=== PATIENT | male | born 1965 | race Two or more races ===

== ENCOUNTER 2020-06-20 10:49 | Outpatient (REF) | payer OTHER, SELFPAY | END 2020-06-20 10:50 | disposition home or self-care (01) | LOC: HO.LAB 10:49 | PROVIDERS: Visit Provider Internal Medicine | DX: Z20.828 Contact with and (suspected) exposure to other viral communicable diseases (principal) | CPT/HCPCS: C9803; U0003 ==

== ENCOUNTER → 2020-06-21 14:13 | Outpatient (BNVA) | payer OTHER, SELFPAY | PROVIDERS: PCP Internal Medicine Geriatric Medicine; Referring Provider Internal Medicine Geriatric Medicine; Visit Provider Nurse Practitioner | DX: K21.9 Gastro-esophageal reflux disease without esophagitis (principal); K59.04 Chronic idiopathic constipation; Z79.899 Other long term (current) drug therapy | CPT/HCPCS: Q3014 ==

== ENCOUNTER 2020-07-19 10:39 | Outpatient (REF) | payer OTHER, SELFPAY | END 2020-07-19 10:40 | disposition home or self-care (01) | LOC: HO.LAB 10:39 | PROVIDERS: Visit Provider Internal Medicine | DX: Z20.828 Contact with and (suspected) exposure to other viral communicable diseases (principal) | CPT/HCPCS: C9803; U0003 ==

== ENCOUNTER → 2020-12-22 10:15 | Outpatient (BNVA) | payer OTHER, SELFPAY | PROVIDERS: Visit Provider Nurse Practitioner | DX: K59.04 Chronic idiopathic constipation (principal); K21.9 Gastro-esophageal reflux disease without esophagitis | CPT/HCPCS: Q3014 ==

== ENCOUNTER 2021-05-14 17:15 | Emergency (ER) | payer OTHER, SELFPAY ==
[2021-05-14 18:23] VITALS: BP 136/102; PULSE 83; RESP 18; TEMP 36.6; O2SAT 97; BMI 26.9
--- NOTE | 2021-05-14 20:21 | ED.WOUNDLAC ---
HPI - Wound/Laceration General Chief Complaint: Wound/Laceration Stated Complaint: Finger lac 05/12 Time Seen by Provider: 05/14/21 19:50 Source: patient Mode of arrival: ambulatory Limitations: no limitations History of Present Illness HPI narrative: 55-year-old male who had a superficial cut on his volar wrist 2 days ago presents with redness around the cut. Patient has been applying Neosporin. Related Data Home Medications Medication Instructions Recorded Confirmed cephalexin 500 mg capsule 500 mg PO BID 12/22/20 clindamycin phosphate 1 % topical ml TOPICAL BID 12/22/20 solution diphenhydramine HCl 25 mg tablet 25 mg PO BEDTIME 12/22/20 fluoxetine 20 mg capsule 20 mg PO QAM 12/22/20 fluticasone propionate 50 0 mcg INTRANASAL 12/22/20 mcg/actuation nasal spray,suspension gabapentin 100 mg capsule 100 mg PO TID 12/22/20 guaifenesin 100 mg/5 mL oral liquid 200 mg PO Q4H PRN 12/22/20 loratadine 10 mg tablet 10 mg PO DAILY 12/22/20 lorazepam 0.5 mg tablet 0.5 mg PO DAILY 12/22/20 meclizine 25 mg tablet 25 mg PO TID PRN 12/22/20 naproxen 500 mg tablet 500 mg PO BID 12/22/20 triamcinolone acetonide 0.1 % 3 TOPICAL Q OTHER DAY PRN 12/22/20 topical ointment zolpidem 10 mg tablet 10 mg PO BEDTIME PRN 12/22/20 Previous Rx's Medication Instructions Recorded omeprazole 20 mg capsule,delayed 20 mg PO DAILY 30 Days #30 cap 12/22/20 release sennosides 8.6 mg capsule (senna) 17.2 mg PO BEDTIME 30 Days #60 cap 12/22/20 cephalexin 500 mg capsule 500 mg PO QID 5 Days #20 cap 05/14/21 Allergies Allergy/AdvReac Type Severity Reaction Status Date / Time No Known Allergies Allergy Verified 05/14/21 18:21 [No Known Allergies*] Review of Systems Review of Systems: Constitutional : No Weight loss, No Fever, No Chills, No Night Sweats,No Fatigue, No Malaise ENT/Mouth : No Hearing loss, No Ear Pain, No Nasal Congestion, NoSinus Pain, No Hoarseness, No sore throat, No Rhinorrhea, NoSwallowing Difficulty Eyes: No Eye Pain, No Swelling, No Redness, No Foreign Body, NoDischarge, No Vision Changes Cardiovascular : No Chest Pain, No SOB, No Dyspnea on Exertion, NoOrthopnea, No Edema, No Palpitations Respiratory : No Cough, No Sputum, No Wheezing, No Smoke Exposure, No Dyspnea Gastrointestinal : No Nausea, No Vomiting, No Diarrhea, NoConstipation, No abdominal Pain, No Hematochezia, No Melena Musculoskeletal : No joint pain, No Myalgias, No Joint Swelling Skin : cut with surrounding rash on right wrist Neuro : No Weakness, No Numbness, No Paresthesias, No Loss ofConsciousness, No Dizziness, No Headache PMFSH Past Medical History Surgical History History of esophagogastroduodenoscopy Hx of colonoscopy Family History Family History Father No problems noted. Mother No problems noted. Sister Liver cancer Brother Cancer Social History Social History Household Members: None Housing: Apartment Alcohol intake: current Alcohol intake frequency: a few times a month Alcohol type: beer Years Smoked: 5 Advance Directives: No Advance Directives Information Provided: No Physical Exam Vital Signs: Vital Signs: Last Vital Signs Temp 97.8 F 05/14/21 18:23 Pulse 83 05/14/21 18:23 Resp 18 05/14/21 18:23 BP 136/102 H 05/14/21 18:23 Pulse Ox 97 05/14/21 18:23 Body Mass Index 26.9 Const: General: healthy appearing, no acute distress, well developed, alert and awake Nutritional Appearance: average body habitus Orientation/consciousness: patient oriented x3 Limitations: no limitations Resp: Effort & Inspection: normal respiratory effort Auscultation: clear to auscultation bilaterally, no crackles, no rales, no rhonchi and no wheezes Cardio: Rate: regular rate Rhythm: regular rhythm Heart sounds: S1 normal heart sound present and S2 normal heart sound present Skin: Other: 1 cm superficial laceration to right volar wrist surrounded by erythema No warmth Neuro: General: patient oriented x3 Extrem: Right upper extremity: full ROM, normal capillary refill and wrist Details: laceration (1 cm, partial thickness), normal vascular exam and radial pulse present; Negative for no tenderness, no unusual warmth and no ecchymosis; No no cyanosis and no edema Course Course Course Narrative: 55-year-old male with superficial 1 cm laceration that he sustained while washing dishes to his right wrist 2 days ago. Patient has been washing the cut, and applying Neosporin. There is some redness and swelling surrounding the cut, there is no warmth. Possible Neosporin allergy versus developing cellulitis. Counseled patient to use bacitracin instead of Neosporin, prescribed Keflex. Gave return precautions of worsening redness, swelling, warmth, pain, fevers. Discharge Plan Discharge Clinical Impression: Cellulitis Patient Disposition: Home, Self-Care Instructions: Cellulitis (ED) Additional Instructions: Please stop using Neosporin. Please start using bacitracin. Wash with soap and water. Please take the antibiotic I prescribed for 5 days. It may take 3 days for the redness to go away. Please return to the emergency room for fevers, worsening pain. Prescriptions: New cephalexin 500 mg capsule 500 mg PO QID 5 Days Qty: 20 RF: 0 No Action loratadine 10 mg tablet 10 mg PO DAILY RF: 0 diphenhydramine HCl 25 mg tablet 25 mg PO BEDTIME RF: 0 fluoxetine 20 mg capsule 20 mg PO QAM RF: 0 zolpidem 10 mg tablet 10 mg PO BEDTIME PRNRF: 0 gabapentin 100 mg capsule 100 mg PO TID RF: 0 lorazepam 0.5 mg tablet 0.5 mg PO DAILY RF: 0 cephalexin 500 mg capsule 500 mg PO BID RF: 0 fluticasone propionate 50 mcg/actuation spray,suspension 0 mcg intranasal RF: 0 triamcinolone acetonide 0.1 % ointment 3 topical Q OTHER DAY PRNRF: 0 clindamycin phosphate 1 % solution topical BID RF: 0 meclizine 25 mg tablet 25 mg PO TID PRNRF: 0 guaifenesin 100 mg/5 mL liquid 200 mg PO Q4H PRNRF: 0 naproxen 500 mg tablet 500 mg PO BID RF: 0 omeprazole 20 mg capsule,delayed release(DR/EC) 20 mg PO DAILY 30 Days Qty: 30 RF: 6 senna 8.6 mg capsule 17.2 mg PO BEDTIME 30 Days Qty: 60 RF: 6 Interventions: ED Discharge Assessment Last Done: 05/14/21 20:40 Discharge Date/Time: 05/14/21 20:44
[2021-05-14] MEDS: cephALEXin 500 MG CAPSULE PO (20:39)
== END 2021-05-14 20:44 | disposition home or self-care (01) ==
PROVIDERS: Emergency Provider Internal Medicine; PCP Internal Medicine Geriatric Medicine
DX: L03.113 Cellulitis of right upper limb (principal)
CPT/HCPCS: 99283; 99284

== ENCOUNTER 2021-05-25 11:42 | Outpatient (REF) | payer OTHER, SELFPAY ==
--- NOTE | ~2021-05-25 | XR_ITS ---
EXAMINATION: XR WRIST, RIGHT CLINICAL INFORMATION: Injury. Laceration. Rash. COMPARISON: None TECHNIQUE: Right wrist is imaged in 4 views. FINDINGS: There is no acute or healing fracture, dislocation, destructive process. No periostitis. The ulnar variance is neutral. There is no carpal narrowing or erosive change or chondrocalcinosis. There is a short linear calcification or old foreign body adjacent to medial base proximal phalanx index finger measuring 4 mm in length by 1.4 mm thickness. Otherwise, there is no radiopaque soft tissue foreign body wrist. XR/XR wrist RT 2V IMPRESSION: 1. No fracture, dislocation, destructive process. 2. Short linear calcification lateral form body adjacent to medial base index finger proximal phalanx. No radiopaque soft tissue foreign body right wrist.
== END 2021-05-25 11:43 | disposition home or self-care (01) ==
LOC: HO.XRAY 11:42
PROVIDERS: Absent Provider Internal Medicine Geriatric Medicine; PCP Internal Medicine Geriatric Medicine; Visit Provider Emergency Medicine
DX: S69.91XA Unspecified injury of right wrist, hand and finger(s), initial encounter (principal); X58.XXXA Exposure to other specified factors, initial encounter; Y93.9 Activity, unspecified; Y92.9 Unspecified place or not applicable; Y99.9 Unspecified external cause status
CPT/HCPCS: 73100

== ENCOUNTER → 2021-06-26 16:06 | Outpatient (BNVA) | payer OTHER, SELFPAY | PROVIDERS: PCP Internal Medicine Geriatric Medicine; Visit Provider Nurse Practitioner | DX: K21.9 Gastro-esophageal reflux disease without esophagitis (principal); K59.04 Chronic idiopathic constipation | CPT/HCPCS: Q3014 ==

== ENCOUNTER 2021-09-06 10:44 | Outpatient (REF) | payer OTHER, SELFPAY ==
--- NOTE | ~2021-09-06 | XR_ITS ---
EXAMINATION: XR ELBOW, RIGHT CLINICAL INFORMATION: Right elbow pain COMPARISON: None TECHNIQUE: AP, lateral, and oblique views of the right elbow. FINDINGS: The bones and soft tissues are normal. No fracture or joint effusion. Alignment is anatomic. Joint spaces are maintained. XR/XR elbow RT min 3V IMPRESSION: Normal right elbow.
== END 2021-09-06 10:45 | disposition home or self-care (01) ==
LOC: HO.XRAY 10:44
PROVIDERS: PCP Internal Medicine Geriatric Medicine; Visit Provider Emergency Medicine
DX: M25.521 Pain in right elbow (principal)
CPT/HCPCS: 73080

== ENCOUNTER 2021-10-10 11:30 | Outpatient (RCR) | payer OTHER, SELFPAY | END 2021-10-10 15:00 | disposition home or self-care (01) | LOC: HO.OT 11:30 | PROVIDERS: PCP Internal Medicine Geriatric Medicine; Visit Provider Emergency Medicine | DX: M25.521 Pain in right elbow (principal) | CPT/HCPCS: 97110; 97165 ==

== ENCOUNTER → 2022-08-15 10:21 | Outpatient (BNVA) | payer OTHER, SELFPAY | PROVIDERS: PCP Internal Medicine Geriatric Medicine; Visit Provider Nurse Practitioner | DX: K21.9 Gastro-esophageal reflux disease without esophagitis (principal); K59.04 Chronic idiopathic constipation | CPT/HCPCS: 99212 ==

== ENCOUNTER 2023-02-13 10:15 | Outpatient (AMB) | payer OTHER, SELFPAY ==
--- NOTE | 2023-02-13 10:27 | MHC.OFFVIS ---
Intake Vital Signs 02/13/23 10:34 Height 5 ft 2 in Weight 148 lb 2.41 oz BMI 27.1 BP 129/83 Blood Pressure Location Lt brachial Position Sitting Pulse 77 Intake Visit Reasons: 6 month follow up Intake Note: Gary presents in office as a est.patient for a 6month f/u PT CC: pt reports having no concerns pt denies any other GI Issues Filing Clerk Required: No Accompanied by: Self / Same As Patient Allergies No Known Allergies [No Known Allergies*] Allergy (Verified 02/13/23 10:35) HPI 6 month follow up HPI Details Assessment & Plan (1) GERD (gastroesophageal reflux disease): ?Code(s): K21.9 - Gastro-esophageal reflux disease without esophagitis ?Plan: He continues to do well! The omeprazole at 20mg is controlling his GERD and the senna controls his CIC well. He just passed his driving test and has his drivers license!! He is proud of this as he never drove before. ROV 6 months. We were incorrectly sending his meds to [facility] and he uses [facility]. (2) Chronic idiopathic constipation: ?Code(s): K59.04 - Chronic idiopathic constipation ? ? ? Medications: Refilled omeprazole 20 mg? PO DAILY 30 days 30 caps 1RF F K21.9 - Gastro-eso phageal reflux dis ease without esoph agitis ? sennosides (senna) 17.2 mg (2 x 8.6 m g) PO BEDTIME PRN 60 tabs 6RF for co nstipation K59.04 - Chronic i diopathic constipa tion TODAY'S VISIT He says that his medicines are still working well for him. The omeprazole at 20mg is controlling his GERD and the senna, and colace control his CIC well. ROV 6 mos. PFSH Medical History Depression Surgical History History of esophagogastroduodenoscopy Hx of colonoscopy Family History Father No problems noted. Mother No problems noted. Sister Liver cancer Brother Cancer Social History Household Members: None Housing: Apartment Alcohol intake: current Alcohol intake frequency: a few times a month Alcohol type: beer Years Smoked: 5 Review of Systems Const Denies fatigue, Denies fever(s), Denies night sweats, Denies poor appetite and Denies weight loss ENT Reports Normal hearing present, Denies dental pain, Denies dysphagia, Denies hearing loss, Denies mouth pain, Denies odynophagia, Denies throat swelling, Denies tongue swelling and Reports other (Dentition adequate) Card Reports no additional complaints Resp Reports no additional complaints GI Denies abdominal pain, Denies melena, Denies bloating, Denies hematochezia, Reports constipation, Denies GI cramping, Denies dysphagia, Denies excessive flatus, Denies early satiety, Reports heartburn, Denies diarrhea, Denies nausea, Denies odynophagia, Denies vomiting and Denies hematemesis Skin/Breast Denies pruritus, Denies lesions, Denies rash and Denies jaundice Neuro Reports Normal hearing present and Denies Abnormal speech present Endo Denies fatigue Aller/Immun Denies throat swelling and Denies tongue swelling Physical Exam Vital Signs: Last Vital Signs Pulse 77 02/13/23 10:34 BP 129/83 02/13/23 10:34 BMI result Body Mass Index 27.1 Const General: cooperative, no acute distress, well developed and well groomed Nutritional Appearance: well nourished and overweight Orientation/consciousness: oriented to person, oriented to place and oriented to time Limitations: No language barrier HEENT Head: Yes normocephalic and Yes atraumatic Eyes General: appearance normal, both eyes and all related structures Pupils: Equal, round and reactive pupils present Neck Neck: Yes normal visual inspection and Yes no lymphadenopathy Thyroid: Thyroid normal Resp Effort & Inspection: normal respiratory effort and able to speak in complete sentences Auscultation: clear to auscultation bilaterally Cardio Rate: regular rate Rhythm: regular rhythm Heart sounds: Normal, physiologic split S2 sound present Peripheral pulses: radial pulses present and posterior tibial pulses present GI Inspection: No distended, No Abdominal panniculus present and Yes obesity Palpation (GI): Soft to palpation, nontender, no guarding, not rigid and No hepatosplenomegaly present Percussion: Yes normal to percussion Auscultation: normal bowel sounds Rectal Exam - Male: Yes deferred Skin General skin exam: no rashes or lesions noted, turgor normal, skin not dry, no jaundice, No spider nevi and no striae Rashes: no rashes Nails: normal Neuro General: oriented to person, oriented to place and oriented to time Cranial nerves: Yes Equal, round and reactive pupils present and Yes Normal hearing present Speech: No Abnormal speech present Extrem General: Yes normal to inspection, No clubbing, No cyanosis and No edema Psych Appearance: grossly normal and well kempt Mental Status: mental status grossly normal Speech and movement: Normal speech and movement present Affect: normal affect Attitude: cooperative Thought process: Normal thought process present and not confabulating Thought content: Normal thought content present Insight: Limited insight present (Psych) Judgement: Limited judgement present (Psych) Assessment & Plan Assessment & Plan (1) GERD (gastroesophageal reflux disease): Code(s): K21.9 - Gastro-esophageal reflux disease without esophagitis Plan: He says that his medicines are still working well for him. The omeprazole at 20mg is controlling his GERD and the senna, and colace control his CIC well. ROV 6 mos. (2) Chronic idiopathic constipation: Code(s): K59.04 - Chronic idiopathic constipation Medications: Changed From docusate sodium 100 mg PO To docusate sodium 100 mg PO DAILY 30 caps 6RF Refilled omeprazole 20 mg PO DAILY 30 caps 6RF K21.9 - Gastro-esophageal reflux disease without esophagitis sennosides (senna) 17.2 mg (2 x 8.6 mg) PO BEDTIME PRN 60 tabs 6RF for constipation K59.04 - Chronic idiopathic constipation Coding Level of Care Code Est Pt Level 3 (34005) Diagnoses GERD (gastroesophageal reflux disease) K21.9 Chronic idiopathic constipation K59.04
[2023-02-13 10:34] VITALS: BP 129/83; PULSE 77; BMI 27.1
== END 2023-02-13 10:56 | disposition home or self-care (01) ==
LOC: HO.HGI 10:16
PROVIDERS: Visit Provider Nurse Practitioner
DX: K21.9 Gastro-esophageal reflux disease without esophagitis (principal); K59.04 Chronic idiopathic constipation
CPT/HCPCS: 99213

== ENCOUNTER → 2023-02-13 10:15 | Outpatient (BNVA) | payer OTHER, SELFPAY | PROVIDERS: Visit Provider Nurse Practitioner | DX: K21.9 Gastro-esophageal reflux disease without esophagitis (principal); K59.04 Chronic idiopathic constipation | CPT/HCPCS: 99212 ==

== ENCOUNTER 2023-04-06 12:05 | Emergency (ER) | payer OTHER, SELFPAY ==
--- NOTE | ~2023-04-06 | XR_ITS ---
EXAMINATION: XR PORTABLE CHEST CLINICAL INFORMATION: Syncope COMPARISON: 04/16/2019 TECHNIQUE: AP portable upright view of the chest FINDINGS: Lungs are clear. Slight elevation of the right hemidiaphragm. EKG leads overlie the chest. No consolidation, pneumothorax, or pleural effusion. Cardiac and mediastinal contours are normal. Pulmonary vasculature is unremarkable. Degenerative spondylosis is present in the thoracic spine. No acute osseous findings. XR/XR chest 1V IMPRESSION: No acute cardiopulmonary findings
--- NOTE | ~2023-04-06 | CT_ITS ---
EXAMINATION: CT HEAD WITHOUT CONTRAST CLINICAL INFORMATION: Syncope. COMPARISON: 04/29/2016 TECHNIQUE: Multidetector volumetric imaging of the head was performed without intravenous contrast material. This CT examination was performed using dose optimization techniques as appropriate, variously including the following: *Automated exposure control *Adjustment of mA and/or kV according to patient size (this includes techniques or standardized protocols for targeted exams where dose is matched to indication/reason for exam; i.e. extremities or head) *Use of iterative reconstruction technique Dose: 590 mGy-cm FINDINGS: There is no evidence of acute intracranial hemorrhage or territorial infarction. No abnormal mass-effect or midline shift is seen. Lara to white matter differentiation is well preserved. No extra axial fluid collections. The ventricles are normal in size and configuration. There is no abnormal attenuation within the brain parenchyma. The soft tissues and osseous structures are normal. Atelectatic right maxillary sinus. Imaged paranasal sinuses otherwise unremarkable. [employer] cells are clear. CT/CT head/brain wo IV con IMPRESSION: No acute intracranial pathology.
[2023-04-06 12:14] VITALS: BP 114/62; BP 116/81; PULSE 72; PULSE 74; RESP 16; TEMP 36.5; O2SAT 94; BMI 27.4
--- NOTE | 2023-04-06 12:18 | ECG_ITS ---
Test Reason : SYNCOPY Blood Pressure : / mmHG Vent. Rate : 063 BPM Atrial Rate : 063 BPM P-R Int : 154 ms QRS Dur : 098 ms QT Int : 436 ms P-R-T Axes : 067 052 041 degrees QTc Int : 446 ms Normal sinus rhythm Normal ECG When compared with ECG of 02-MAY-2019 02:32, Vent. rate has decreased BY 46 BPM Referred By: Stephie Camacho Electronically Signed By:DONALD SIMMONS
[2023-04-06 12:21] VITALS: RESP 16; O2SAT 94
--- NOTE | 2023-04-06 12:21 | ED.SYNCOPE ---
HPI - Syncope General Chief Complaint: Syncope Stated Complaint: Syncope ? Time Seen by Provider: 04/06/23 12:17 Source: patient and EMS Mode of arrival: EMS Limitations: no limitations History of Present Illness HPI narrative: 57-year-old male came in by EMS for evaluation after syncopal episode. Patient was feeling fine working at home when he saw his friend passed out patient felt lightheadedness and he collapsed after seen this, patient had nausea but no vomiting, patient stated he has been eating and drinking okay no diarrhea no abdominal pain, no CP, no SOB. He thinks he got emotional after seeing his friend passing out. Patient is feeling slightly better now. Related Data Home Medications Medication Instructions Recorded Confirmed diphenhydramine HCl 25 mg tablet 25 mg PO BEDTIME 12/22/20 fluoxetine 20 mg capsule 20 mg PO QAM 12/22/20 gabapentin 100 mg capsule 100 mg PO TID 12/22/20 guaifenesin 100 mg/5 mL oral liquid 200 mg PO Q4H PRN 12/22/20 loratadine 10 mg tablet 10 mg PO DAILY 12/22/20 lorazepam 0.5 mg tablet 0.5 mg PO DAILY 12/22/20 meclizine 25 mg tablet 25 mg PO TID PRN 12/22/20 naproxen 500 mg tablet 500 mg PO BID 12/22/20 triamcinolone acetonide 0.1 % 3 topical Q OTHER DAY PRN 12/22/20 topical ointment zolpidem 10 mg tablet 10 mg PO BEDTIME PRN 12/22/20 atorvastatin 20 mg tablet 20 mg PO DAILY 08/15/22 emtricitabine 200 mg-tenofovir 1 tab PO DAILY 08/15/22 alafenamide fumarate 25 mg tablet (Descovy) allavxgz-lwz-lrdvr acid 0.4 0 tab PO 08/15/22 mg-lycopene 300 mcg-lutein 250 mcg tablet (Cerovite Senior) Previous Rx's Medication Instructions Recorded docusate sodium 100 mg capsule 100 mg PO DAILY #30 caps 02/13/23 omeprazole 20 mg capsule,delayed 20 mg PO DAILY #30 caps 02/13/23 release sennosides 8.6 mg tablet (senna) 17.2 mg PO BEDTIME PRN for 02/13/23 constipation #60 tabs Allergies Allergy/AdvReac Type Severity Reaction Status Date / Time No Known Allergies Allergy Verified 02/13/23 10:35 [No Known Allergies*] Review of Systems Review of Systems: All other systems are reviewed and are negative Constitutional: Reports as per HPI and Reports no additional constitutional complaints Eyes: Reports as per HPI and Reports no additional eye complaints Reports system reviewed and no additional complaints, except as documented Cardiovascular: Reports as per HPI and Reports no additional cardiovascular complaints Respiratory: Reports as per HPI and Reports no additional respiratory complaints Gastrointestinal: Reports as per HPI and Reports no additional gastrointestinal complaints Genitourinary: Reports no additional female genitourinary complaints Musculoskeletal: Reports no additional musculoskeletal complaints Skin/Breast: Reports system reviewed and no additional complaints, except as docu Psychiatric: Reports no additional psychiatric complaints Endocrine: Reports no additional endocrine complaints Hematologic/Lymphatic: Reports no additional hematologic/lymphatic complaints Allergic/Immunologic: Reports no additional allergic/immunologic complaints Reports system reviewed and no additional complaints, except as documented and Reports Abnormal speech present [facility] Past Medical History Medical History Depression Surgical History History of esophagogastroduodenoscopy Hx of colonoscopy Family History Family History Father No problems noted. Mother No problems noted. Sister Liver cancer Brother Cancer Social History Social History Household Members: None Housing: Apartment Alcohol intake: current Alcohol intake frequency: does not drink Alcohol type: beer Years Smoked: 5 Smoked in Last 30 Days: No Use of substances other than those prescribed or required for medical reasons: No Advance Directives: No Advance Directives Information Provided: No Physical Exam Vital Signs: Vital Signs: Last Vital Signs Temp 97.7 F 04/06/23 12:14 Pulse 72 04/06/23 12:14 Resp 16 04/06/23 12:21 BP 116/81 04/06/23 12:14 Pulse Ox 94 04/06/23 12:21 O2 Del Method Room Air 04/06/23 12:21 BMI result Body Mass Index 27.4 Vital signs have been reviewed as appeared to be correct. Blood pressure normal. Heart rate normal. Respiration rate normal. Temperature normal. Oxygen saturation normal. Appearance: Alert. Oriented X3. No acute distress. Head: Normal external exam. Normocephalic. Atraumatic. No [place] signs noted. No raccoon eyes noted Eyes: PERRLA. EOMI. Conjunctiva and sclera normal. Eyelids normal. ENT: TM's Normal. Pharynx normal. Uvula midline. Moist mucous membranes. No trismus noted. No drooling noted. No muffled voice noted. Neck: Normal inspection. Neck supple. FROM. No adenopathy. Thyroid Normal. No meningeal signs. No neck mass noted. CVS: Normal heart rate and rhythm. Heart sound normal. No murmurs noted. Pulses normal throughout. Respiratory: No respiratory distress. Painless inspiration. Breath sounds normal. No wheezes/rales/rhonchi noted. Chest nontender. No accessory muscle usage noted or decreased air movement noted. Abdomen: Soft and nontender. Bowel sounds normal in all 4 quadrants. No distention noted. No organomegaly noted. No visible injury noted. Back: No CVA tenderness. Full range of motion noted. Skin: Skin warm and dry. Normal skin color. Normal skin turgor. No rashes/lesions/lacerations noted. Extremities: No lower extremity edema. Extremities exhibit normal range of motion. Extremities nontender. Neuro: Oriented X 3. Cranial nerve exam: II-XII are grossly intact No motor deficit. No sensory deficit. Reflexes normal. Course Course Course Narrative: [age] year male had a syncopal episode, no CP, no SOB, patient feels better after IV fluid. Unremarkable labs. Medications Administered Discontinued Medications Generic Name Dose Route Start Last Admin Trade Name Freq PRN Reason Stop Dose Admin Sodium Chloride 1,000 mls @ 999 mls/hr 04/06/23 12:17 04/06/23 13:39 Ns IV 04/06/23 13:17 999 mls/hr .Q1H1M ONE Administration Medical Decision Making Differential Diagnosis Differential Diagnoses: The differential diagnosis associated with the presentation includes (Dehydration, abnormality, ACS, severe anemia.) Admission/Observation Consideration of admission/observation: Escalation of care including admission/observation considered Lab Data MDM Lab Attestation statement: I reviewed the patient's lab results. 04/06/23 14:07 04/06/23 14:07 Labs: Lab Results 04/06/23 04/06/2323 Range/Units 14:07 14:07 14:07 WBC 13.2 H (4.8-10.8) X10*3/uL RBC 4.36 L (4.60-5.80) X10*6/uL Hgb 12.5 L (14.0-18.0) g/dl Hct 37.3 L (42.0-52.0) % MCV 85.6 (80.0-98.0) fL MCH 28.7 (27.0-33.0) pg MCHC 33.5 (31.0-36.0) g/dl RDW 13.5 (11.0-16.0) % Plt Count 192 (160-400) X10*3/uL MPV 8.8 L (9.4-12.4) fL Immature Gran % (Auto) 0.6 H (0.0-0.4) % Neut % (Auto) 83.3 H (45-73) % Lymph % (Auto) 8.6 L (20-40) % Harlan % (Auto) 6.8 (2-11) % Eos % (Auto) 0.4 (0-4) % Baso % (Auto) 0.3 (0-2) % Lymph # (Auto) 1.1 L (1.2-4.9) X10*3/uL Harlan # (Auto) 0.9 (0.1-1.2) X10*3/uL Eos # (Auto) 0.1 (0.0-0.4) X10*3/uL Baso # (Auto) 0.0 (0.0-0.2) X10*3/uL Abs Immat Gran (auto) 0.08 H (0.00-0.03) X10*3/uL Absolute Neuts (auto) 11.0 H (2.0-8.3) x10*3/uL Absolute Nucleated RBC 0.000 (0.0-0.012) X10*3/uL Nucleated RBC % (auto) 0.0 (0.0-0.2) /100WBC Sodium 141 (135-145) mmol/L Potassium 4.4 (3.3-5.1) mmol/L Chloride 109 H (96-108) mmol/L Carbon Dioxide 26 (22-29) mmol/L Anion Gap 10 L (12-20) BUN 9 (9-16) mg/dL Creatinine 1.12 (0.5-1.4) mg/dL Estim Creat Clear Calc 62.4 Estimated GFR > 60 Random Glucose 119 H (60-115) mg/dL Calcium 8.8 (8.4-10.2) mg/dL Total Bilirubin 0.4 (0.0-1.0) mg/dL Direct Bilirubin 0.1 (0.0-0.5) mg/dL AST 19 (5-37) U/L ALT 14 (0-40) U/L Alkaline Phosphatase 65 (39-117) U/L Troponin I High Sens < 2.7 (<3.5-35.0) ng/L B-Natriuretic Peptide (<100) pg/mL Total Protein 6.9 (6.5-8.0) g/dL Albumin 4.1 (3.5-5.0) g/dL Lipase 14 (8-78) U/L 04/06/23 Range/Units 14:07 WBC (4.8-10.8) X10*3/uL RBC (4.60-5.80) X10*6/uL Hgb (14.0-18.0) g/dl Hct (42.0-52.0) % MCV (80.0-98.0) fL MCH (27.0-33.0) pg MCHC (31.0-36.0) g/dl RDW (11.0-16.0) % Plt Count (160-400) X10*3/uL MPV (9.4-12.4) fL Immature Gran % (Auto) (0.0-0.4) % Neut % (Auto) (45-73) % Lymph % (Auto) (20-40) % Harlan % (Auto) (2-11) % Eos % (Auto) (0-4) % Baso % (Auto) (0-2) % Lymph # (Auto) (1.2-4.9) X10*3/uL Harlan # (Auto) (0.1-1.2) X10*3/uL Eos # (Auto) (0.0-0.4) X10*3/uL Baso # (Auto) (0.0-0.2) X10*3/uL Abs Immat Gran (auto) (0.00-0.03) X10*3/uL Absolute Neuts (auto) (2.0-8.3) x10*3/uL Absolute Nucleated RBC (0.0-0.012) X10*3/uL Nucleated RBC % (auto) (0.0-0.2) /100WBC Sodium (135-145) mmol/L Potassium (3.3-5.1) mmol/L Chloride (96-108) mmol/L Carbon Dioxide (22-29) mmol/L Anion Gap (12-20) BUN (9-16) mg/dL Creatinine (0.5-1.4) mg/dL Estim Creat Clear Calc Estimated GFR Random Glucose (60-115) mg/dL Calcium (8.4-10.2) mg/dL Total Bilirubin (0.0-1.0) mg/dL Direct Bilirubin (0.0-0.5) mg/dL AST (5-37) U/L ALT (0-40) U/L Alkaline Phosphatase (39-117) U/L Troponin I High Sens (<3.5-35.0) ng/L B-Natriuretic Peptide < 10 (<100) pg/mL Total Protein (6.5-8.0) g/dL Albumin (3.5-5.0) g/dL Lipase (8-78) U/L Independent Interpretation I performed an independent interpretation of an: Plain X-Ray (Chest: No acute cardiopulmonary finding) and CT Scan (Head: No acute pathology.) Radiology Impression Discussion of test interpretation with radiology: I have reviewed the radiologist's reading. Discharge Plan Discharge Clinical Impression: Vasovagal syncope Instructions: Syncope in Children (ED) Prescriptions: No Action loratadine 10 mg tablet 10 mg PO DAILY diphenhydramine HCl 25 mg tablet 25 mg PO BEDTIME fluoxetine 20 mg capsule 20 mg PO QAM zolpidem 10 mg tablet 10 mg PO BEDTIME PRN gabapentin 100 mg capsule 100 mg PO TID lorazepam 0.5 mg tablet 0.5 mg PO DAILY triamcinolone acetonide 0.1 % ointment 3 topical Q OTHER DAY PRN meclizine 25 mg tablet 25 mg PO TID PRN guaifenesin 100 mg/5 mL liquid 200 mg PO Q4H PRN naproxen 500 mg tablet 500 mg PO BID atorvastatin 20 mg tablet 20 mg PO DAILY Cerovite Senior 0.4 mg-300 mcg- 250 mcg tablet 0 tab PO Descovy 200-25 mg tablet 1 tab PO DAILY omeprazole 20 mg capsule,delayed release(DR/EC) 20 mg PO DAILY Qty: 30 6RF sennosides [senna] 8.6 mg tablet 17.2 mg PO BEDTIME PRN (Reason: for constipation) Qty: 60 6RF docusate sodium 100 mg capsule 100 mg PO DAILY Qty: 30 6RF
--- NOTE | 2023-04-06 12:51 | MHC.EDTECH ---
PATIENT REFUSE ORTHOSTATIC VITALS AT THE MOMENT PT STATES FEEL DIZZY
[2023-04-06] MEDS: 0.9 % Sodium Chloride 1,000 ML 999 ML IV ×2 (13:39→14:55)
[2023-04-06 14:00] VITALS: RESP 16
[2023-04-06 14:12] LABS: Basophils Percent Auto 0.3 % (0-2); Eosinophils Absolute Auto 0.1 X10*3/uL (0.0-0.4); Eosinophils Percent Auto 0.4 % (0-4); Hematocrit 37.3 % (42.0-52.0); Hemoglobin 12.5 g/dl (14.0-18.0); Imm Gran Abs Auto 0.08 X10*3/uL (0.00-0.03); Imm Gran Pct Auto 0.6 % (0.0-0.4); Lymphocytes Absolute Auto 1.1 X10*3/uL (1.2-4.9); Lymphocytes Percent Auto 8.6 % (20-40); MANUAL DIFF FLAG NO; Mean Corpuscular HGB Conc 33.5 g/dl (31.0-36.0); Mean Corpuscular Hemoglobin 28.7 pg (27.0-33.0); Mean Corpuscular Volume 85.6 fL (80.0-98.0); Mean Platelet Volume 8.8 fL (9.4-12.4); Monocytes Absolute Auto 0.9 X10*3/uL (0.1-1.2); Monocytes Percent Auto 6.8 % (2-11); Neutrophils Percent Auto 83.3 % (45-73); Platelet Count 192 X10*3/uL (160-400); Red Blood Count 4.36 X10*6/uL (4.60-5.80); Red Cell Distribution Width 13.5 % (11.0-16.0); White Blood Count 13.2 X10*3/uL (4.8-10.8)
[2023-04-06 14:29] LABS: Alanine Aminotransferase 14 U/L (0-40); Albumin Level 4.1 g/dL (3.5-5.0); Alkaline Phosphatase 65 U/L (39-117); Anion Gap 10 (12-20); Aspartate Amino Transferase 19 U/L (5-37); Bilirubin Direct 0.1 mg/dL (0.0-0.5); Bilirubin Total 0.4 mg/dL (0.0-1.0); Blood Urea Nitrogen 9 mg/dL (9-16); Calcium 8.8 mg/dL (8.4-10.2); Carbon Dioxide 26 mmol/L (22-29); Chloride 109 mmol/L (96-108); Creatinine Clr Calc Pharmacy 62.4; Estimated Glomerular Filt Rate > 60; Glucose Random 119 mg/dL (60-115); Lipase 14 U/L (8-78); Potassium 4.4 mmol/L (3.3-5.1); Sodium 141 mmol/L (135-145); Total Protein 6.9 g/dL (6.5-8.0)
[2023-04-06 14:34] LABS: B Type Natriuretic Peptide < 10 pg/mL (<100)
[2023-04-06 14:39] LABS: Troponin-I High Sensitivity < 2.7 ng/L (<3.5-35.0)
[2023-04-06 15:24] LABS: Troponin-I High Sensitivity < 2.7 ng/L (<3.5-35.0)
[2023-04-06 16:00] VITALS: RESP 16
[2023-04-06 16:23] VITALS: BP 106/64; PULSE 74; RESP 13; O2SAT 96
== END 2023-04-06 16:27 | disposition home or self-care (01) ==
PROVIDERS: Emergency Provider Emergency Medicine
DX: R55 Syncope and collapse (principal); Z79.899 Other long term (current) drug therapy; Z87.891 Personal history of nicotine dependence
CPT/HCPCS: 36415; 70450; 71045; 80048; 80076; 83690; 83880; 84484; 85025; 93005; 96360; 96361; 99284; 99285

== ENCOUNTER 2023-04-29 12:54 | Outpatient (REF) | payer OTHER, SELFPAY ==
--- NOTE | ~2023-04-29 | US_ITS ---
EXAMINATION: US SCROTUM CLINICAL INFORMATION: Right testicular pain, left testicular pain. COMPARISON: None available. TECHNIQUE: A sonogram of the scrotum was performed assessing pelletier-scale appearance and color Doppler flow. Spectral Doppler analysis of the arterial and venous flow were performed in the testes bilaterally. FINDINGS: RIGHT: Right testicle measures 4.3 x 1.8 x 3.2 cm, volume 12.8 mL. No focal testicular parenchymal lesions are visualized. Spectral Doppler analysis of the arterial and venous flow is normal in the right testis. Right epididymal head is normal in size. No right hydrocele or varicocele is seen. Right epididymal Doppler flow is normal. LEFT: Left testicle measures 4.3 x 1.9 x 3.1 cm, volume 13.3 mL. No focal testicular parenchymal lesions are visualized. Spectral Doppler analysis of the arterial and venous flow is normal in the left testis. Left epididymal head is normal in size. Left epididymal head cyst measuring 2 mm. No left hydrocele or varicocele is seen. Left epididymal Doppler flow is normal. US/US scrotum IMPRESSION: 1. Bilateral testicular vascular flow identified. 2. Left epididymal head cyst measuring 2 mm.
== END 2023-04-29 12:55 | disposition home or self-care (01) ==
LOC: HO.US 12:54
PROVIDERS: Visit Provider Nurse Practitioner Family
DX: N50.811 Right testicular pain (principal); N50.812 Left testicular pain
CPT/HCPCS: 76870

== ENCOUNTER 2023-05-26 22:21 | Emergency (ER) | payer OTHER, SELFPAY ==
--- NOTE | ~2023-05-26 | XR_ITS ---
EXAMINATION: XR CHEST CLINICAL INFORMATION: Shortness of breath COMPARISON: 04/06/2023 TECHNIQUE: Frontal view of the chest was obtained. FINDINGS: The lungs are clear with no focal consolidation. No evidence of pneumothorax, pulmonary edema, or pleural effusions. The cardiomediastinal silhouette is unremarkable. No acute osseous findings. XR/XR chest 1V IMPRESSION: No acute cardiopulmonary findings.
[2023-05-26 22:38] VITALS: BP 138/98; PULSE 98; RESP 16; TEMP 36.8; O2SAT 93; BMI 26.9
--- NOTE | 2023-05-27 00:43 | ECG_ITS ---
Test Reason : DYSPNEA Blood Pressure : / mmHG Vent. Rate : 082 BPM Atrial Rate : 082 BPM P-R Int : 150 ms QRS Dur : 088 ms QT Int : 366 ms P-R-T Axes : 062 060 041 degrees QTc Int : 427 ms Normal sinus rhythm Normal ECG When compared with ECG of 06-APR-2023 12:47, No significant change was found Referred By: Mireya Donohue Electronically Signed By:GEO MARTINEZ MD
[2023-05-27 01:26] LABS: Basophils Absolute Auto 0.1 X10*3/uL (0.0-0.2); Basophils Percent Auto 0.8 % (0-2); Eosinophils Absolute Auto 0.2 X10*3/uL (0.0-0.4); Eosinophils Percent Auto 1.6 % (0-4); Hematocrit 38.7 % (42.0-52.0); Hemoglobin 12.7 g/dl (14.0-18.0); Imm Gran Abs Auto 0.02 X10*3/uL (0.00-0.03); Imm Gran Pct Auto 0.2 % (0.0-0.4); Lymphocytes Absolute Auto 3.7 X10*3/uL (1.2-4.9); Lymphocytes Percent Auto 38.8 % (20-40); MANUAL DIFF FLAG NO; Mean Corpuscular HGB Conc 32.8 g/dl (31.0-36.0); Mean Corpuscular Hemoglobin 27.9 pg (27.0-33.0); Mean Corpuscular Volume 84.9 fL (80.0-98.0); Mean Platelet Volume 8.8 fL (9.4-12.4); Monocytes Absolute Auto 0.8 X10*3/uL (0.1-1.2); Monocytes Percent Auto 8.8 % (2-11); Neutrophils Absolute Auto 4.7 x10*3/uL (2.0-8.3); Neutrophils Percent Auto 49.8 % (45-73); Platelet Count 236 X10*3/uL (160-400); Red Blood Count 4.56 X10*6/uL (4.60-5.80); Red Cell Distribution Width 13.2 % (11.0-16.0); White Blood Count 9.5 X10*3/uL (4.8-10.8)
[2023-05-27 01:32] LABS: INTERNATIONAL NORM RATIO 0.9 (0.9-1.1); Prothrombin Time 10.7 SEC (11.1-13.3)
[2023-05-27 01:41] LABS: COVID-19 Test Negative (Negative); IDNOW Serial# 6674DD1D
[2023-05-27 01:42] LABS: Alanine Aminotransferase 26 U/L (0-40); Albumin Level 4.4 g/dL (3.5-5.0); Alkaline Phosphatase 100 U/L (39-117); Anion Gap 15 (12-20); Aspartate Amino Transferase 27 U/L (5-37); Bilirubin Direct 0.1 mg/dL (0.0-0.5); Bilirubin Total 0.3 mg/dL (0.0-1.0); Blood Urea Nitrogen 15 mg/dL (9-16); Calcium 9.7 mg/dL (8.4-10.2); Carbon Dioxide 23 mmol/L (22-29); Chloride 107 mmol/L (96-108); Creatinine Clr Calc Pharmacy 63.6; Estimated Glomerular Filt Rate > 60; Glucose Random 100 mg/dL (60-115); Potassium 3.7 mmol/L (3.3-5.1); Sodium 141 mmol/L (135-145); Total Protein 7.6 g/dL (6.5-8.0)
[2023-05-27 01:47] LABS: Troponin-I High Sensitivity < 2.7 ng/L (<3.5-35.0)
[2023-05-27 01:48] LABS: B Type Natriuretic Peptide < 10 pg/mL (<100)
--- NOTE | 2023-05-27 02:01 | ED.GENADULT ---
HPI - General Adult General Chief complaint: Dyspnea Stated complaint: Shortness of breath, no appetite Time Seen by Provider: 05/27/23 01:54 Source: patient Mode of arrival: ambulatory Limitations: no limitations History of Present Illness HPI narrative: Patient comes in the emergency room complaining of anxiety. Patient states that yesterday he had an argument with his partner. It seems that the patient's partner left yesterday against medical advice from the hospital, and patient will not let his partner inside of the house. Patient complaining of anxiety, chest pressure. At this time, no chest pain or pressure. Patient denies suicidal homicidal ideation. Related Data Home Medications Medication Instructions Recorded Confirmed diphenhydramine HCl 25 mg tablet 25 mg PO BEDTIME 12/22/20 fluoxetine 20 mg capsule 20 mg PO QAM 12/22/20 gabapentin 100 mg capsule 100 mg PO TID 12/22/20 guaifenesin 100 mg/5 mL oral liquid 200 mg PO Q4H PRN 12/22/20 loratadine 10 mg tablet 10 mg PO DAILY 12/22/20 lorazepam 0.5 mg tablet 0.5 mg PO DAILY 12/22/20 meclizine 25 mg tablet 25 mg PO TID PRN 12/22/20 naproxen 500 mg tablet 500 mg PO BID 12/22/20 triamcinolone acetonide 0.1 % 3 topical Q OTHER DAY PRN 12/22/20 topical ointment zolpidem 10 mg tablet 10 mg PO BEDTIME PRN 12/22/20 atorvastatin 20 mg tablet 20 mg PO DAILY 08/15/22 emtricitabine 200 mg-tenofovir 1 tab PO DAILY 08/15/22 alafenamide fumarate 25 mg tablet (Descovy) [id number]-qsw-[id number] acid 0.4 0 tab PO 08/15/22 mg-lycopene 300 mcg-lutein 250 mcg tablet (Cerovite Senior) Previous Rx's Medication Instructions Recorded docusate sodium 100 mg capsule 100 mg PO DAILY #30 caps 02/13/23 omeprazole 20 mg capsule,delayed 20 mg PO DAILY #30 caps 02/13/23 release sennosides 8.6 mg tablet (senna) 17.2 mg (2 x 8.6 mg) PO BEDTIME 02/13/23 PRN for constipation #60 tabs Allergies Allergy/AdvReac Type Severity Reaction Status Date / Time No Known Allergies Allergy Verified 02/13/23 10:35 [No Known Allergies*] Review of Systems Review of Systems: Constitutional : No Weight loss, No Fever, No Chills, No Night Sweats, No Fatigue, No Malaise ENT/Mouth : No Hearing loss, No Ear Pain, No Nasal Congestion, No Sinus Pain, No Hoarseness, No sore throat, No Rhinorrhea, No Swallowing Difficulty Eyes: No Eye Pain, No Swelling, No Redness, No Foreign Body, No Discharge, No Vision Changes Cardiovascular : No Chest Pain, complaining of chest pressure due to anxiety, No SOB, No Dyspnea on Exertion, No Orthopnea, No Edema, No Palpitations Respiratory : No Cough, No Sputum, No Wheezing, No Smoke Exposure, No Dyspnea Gastrointestinal : No Nausea, No Vomiting, No Diarrhea, No Constipation, No abdominal Pain, No Hematochezia, No Melena Genitourinary : no irregular bleeding, No Dysuria, No Urinary Frequency, No Hematuria, No Urinary Incontinence, No Urgency, No Flank Pain, No Urinary Flow Changes, No Hesitancy Musculoskeletal : No joint pain, No Myalgias, No Joint Swelling Skin : No Skin Lesions, No rash Neuro : No Weakness, No Numbness, No Paresthesias, No Loss of Consciousness, No Dizziness, No Headache Psych : Complaining of anxiety, feeling depressed, No SI/HI/AH/VH, No Social Issues, Heme/Lymph: No Bruising, No Bleeding,No Lymphadenopathy Endocrine : No Polyuria, No Polydipsia, No Temperature Intolerance PMFSH Past Medical History Medical History Depression Surgical History History of esophagogastroduodenoscopy Hx of colonoscopy Family History Family History Father No problems noted. Mother No problems noted. Sister Liver cancer Brother Cancer Social History Social History Household Members: None Housing: Apartment Alcohol intake: current Alcohol intake frequency: does not drink Alcohol type: beer Years Smoked: 5 Advance Directives: No Advance Directives Information Provided: No Physical Exam ED Vital Signs: Vital Signs - 24 hr 05/26/23 22:38 10/23/23 02:02 Temperature 98.2 F Pulse Rate 98 85 Respiratory Rate 16 15 Blood Pressure 138/98 H 138/98 H Pulse Oximetry 93 Oxygen Delivery Method Room Air BMI result Body Mass Index 26.9 Const Other: Appearance: Alert. Oriented X3. No acute distress. Eyes: Pupils equal, round and reactive to light. ENT: Pharynx normal. Neck: Normal inspection. Neck supple. No lymph nodes noted. No crepitus CVS: Normal heart rate and rhythm. Pulses normal. Normal S1 and S2 Respiratory: No respiratory distress. Breath sounds normal. No Wheezing. No rales Abdomen: Soft and nontender. No rigidity. No distention. Skin: Skin warm and dry. Normal skin color. Normal skin turgor. Extremities: No lower extremity edema. No Lacerations. No Rash Neuro: Oriented X 3. No motor deficit. No sensory deficit. Moving all extremities. No slurred speech. CN 2 through 12 grossly intact Psych: calm, cooperative, normal affect Medical Decision Making Medical Decision Making [facility] Narrative: -my interpretation of labs, normal hematology, chemistry, negative troponin -patient is not suicidal or homicidal -my interpretation of labs: Normal sinus rhythm, heart rate 82, no ST segment depression elevation, no T-wave inversion, QTC 427 -patient was given a dose of Ativan to help with anxiety. Differential Diagnosis Differential Diagnoses: The differential diagnosis associated with the presentation includes (Anxiety, depression, ACS) Admission/Observation Consideration of admission/observation: Escalation of care including admission/observation considered (Patient came in complaining of chest pain, patient was concerned on arrival.) Lab Data [facility] Lab Attestation statement: I reviewed the patient's lab results. 05/27/23 01:20 05/27/23 01:20 Labs: Lab Results 05/27/23 Range/Units 01:20 WBC 9.5 (4.8-10.8) X10*3/uL RBC 4.56 L (4.60-5.80) X10*6/uL Hgb 12.7 L (14.0-18.0) g/dl Hct 38.7 L (42.0-52.0) % MCV 84.9 (80.0-98.0) fL MCH 27.9 (27.0-33.0) pg MCHC 32.8 (31.0-36.0) g/dl RDW 13.2 (11.0-16.0) % Plt Count 236 (160-400) X10*3/uL MPV 8.8 L (9.4-12.4) fL Immature Gran % (Auto) 0.2 (0.0-0.4) % Neut % (Auto) 49.8 (45-73) % Lymph % (Auto) 38.8 (20-40) % [place] % (Auto) 8.8 (2-11) % Eos % (Auto) 1.6 (0-4) % Baso % (Auto) 0.8 (0-2) % Lymph # (Auto) 3.7 (1.2-4.9) X10*3/uL [place] # (Auto) 0.8 (0.1-1.2) X10*3/uL Eos # (Auto) 0.2 (0.0-0.4) X10*3/uL Baso # (Auto) 0.1 (0.0-0.2) X10*3/uL Abs Immat Gran (auto) 0.02 (0.00-0.03) X10*3/uL Absolute Neuts (auto) 4.7 (2.0-8.3) x10*3/uL Absolute Nucleated RBC 0.000 (0.0-0.012) X10*3/uL Nucleated RBC % (auto) 0.0 (0.0-0.2) /100WBC PT 10.7 L (11.1-13.3) SEC INR 0.9 (0.9-1.1) Sodium 141 (135-145) mmol/L Potassium 3.7 (3.3-5.1) mmol/L Chloride 107 (96-108) mmol/L Carbon Dioxide 23 (22-29) mmol/L Anion Gap 15 (12-20) BUN 15 (9-16) mg/dL Creatinine 1.09 (0.5-1.4) mg/dL Estim Creat Clear Calc 63.6 Estimated GFR > 60 Random Glucose 100 (60-115) mg/dL Calcium 9.7 D (8.4-10.2) mg/dL Total Bilirubin 0.3 (0.0-1.0) mg/dL Direct Bilirubin 0.1 (0.0-0.5) mg/dL AST 27 (5-37) U/L ALT 26 (0-40) U/L Alkaline Phosphatase 100 (39-117) U/L Troponin I High Sens < 2.7 (<3.5-35.0) ng/L B-Natriuretic Peptide < 10 (<100) pg/mL Total Protein 7.6 (6.5-8.0) g/dL Albumin 4.4 (3.5-5.0) g/dL COVID-19 (RICKIE) Negative (Negative) COVID-19 Clin Com See Note Radiology Impression Discussion of test interpretation with radiology: I have reviewed the radiologist's reading. Radiologist Impression: The lungs are clear with no focal consolidation. No evidence of pneumothorax, pulmonary edema, or pleural effusions. The cardiomediastinal silhouette is unremarkable. No acute osseous findings. XR/XR chest 1V IMPRESSION: No acute cardiopulmonary findings. Critical Care Time Critical Care Time Critical Care Time: Yes Total Critical Care Time: 30 Attestation: I have personally provided critical care time. Time includes review of lab data, radiology results, discussion with consultants, and monitoring for potential decompensation. Intervention performed as documented. Discharge Plan Discharge Clinical Impression: Anxiety, Atypical chest pain Patient Disposition: Home, Self-Care Instructions: Anxiety (ED) Additional Instructions: Please follow-up with your primary care physician tomorrow. If you have any worsening or new symptoms, please return to the emergency room or call 911 Prescriptions: No Action loratadine 10 mg tablet 10 mg PO DAILY diphenhydramine HCl 25 mg tablet 25 mg PO BEDTIME fluoxetine 20 mg capsule 20 mg PO QAM zolpidem 10 mg tablet 10 mg PO BEDTIME PRN gabapentin 100 mg capsule 100 mg PO TID lorazepam 0.5 mg tablet 0.5 mg PO DAILY triamcinolone acetonide 0.1 % ointment 3 topical Q OTHER DAY PRN meclizine 25 mg tablet 25 mg PO TID PRN guaifenesin 100 mg/5 mL liquid 200 mg PO Q4H PRN naproxen 500 mg tablet 500 mg PO BID atorvastatin 20 mg tablet 20 mg PO DAILY Cerovite Senior 0.4 mg-300 mcg- 250 mcg tablet 0 tab PO Descovy 200-25 mg tablet 1 tab PO DAILY omeprazole 20 mg capsule,delayed release(DR/EC) 20 mg PO DAILY Qty: 30 6RF sennosides [senna] 8.6 mg tablet 17.2 mg PO BEDTIME PRN (Reason: for constipation) Qty: 60 6RF docusate sodium 100 mg capsule 100 mg PO DAILY Qty: 30 6RF
[2023-05-27 02:02] VITALS: BP 138/98; PULSE 85; RESP 15
--- NOTE | 2023-05-27 02:07 | PC.NURSE ---
Pt ca&ox4, no signs of distress. Pt EKG completed. Provider with pt. Plan of care ongoing.
[2023-05-27] MEDS: LORazepam 0.5 MG TABLET PO (02:40)
--- NOTE | 2023-05-27 02:45 | PC.NURSE ---
Pt ca&ox4, no sign of acute distress. Pt medicated per mar. Plan of care ongoing.
== END 2023-05-27 02:51 | disposition home or self-care (01) ==
PROVIDERS: Emergency Provider Emergency Medicine; PCP Internal Medicine Geriatric Medicine
DX: R07.89 Other chest pain (principal); R06.02 Shortness of breath; F41.1 Generalized anxiety disorder; F43.0 Acute stress reaction; Z11.52 Encounter for screening for COVID-19; Z20.822 Contact with and (suspected) exposure to COVID-19
CPT/HCPCS: 71045; 80048; 80076; 83880; 84484; 85025; 85610; 87635; 93005; 99283; 99284

== ENCOUNTER 2023-06-01 17:48 | Emergency (ER) | payer OTHER, SELFPAY ==
--- NOTE | ~2023-06-01 | XR_ITS ---
EXAMINATION: XR CHEST CLINICAL INFORMATION: Shortness of breath COMPARISON: Chest radiograph from 05/27/2023 TECHNIQUE: 2 views of the chest were obtained. FINDINGS: No focal consolidation. No pneumothorax. Trachea is midline. Cardiac mediastinal silhouette is not enlarged. No large pleural effusion. Degenerative changes of the thoracolumbar spine. Soft tissues are unremarkable. XR/XR chest 2V IMPRESSION: No acute cardiopulmonary process.
[2023-06-01 18:04] VITALS: BP 104/76; PULSE 81; RESP 18; TEMP 36.7; O2SAT 97; BMI 26.4
--- NOTE | 2023-06-01 18:08 | ED.SOB ---
HPI - SOB/Dyspnea General Chief Complaint: Back Pain/Injury Stated Complaint: upper back pain,sob Time Seen by Provider: 06/01/23 18:49 Source: patient Mode of arrival: ambulatory Limitations: no limitations History of Present Illness HPI Narrative: Patient is a 57-year-old male presents to the emergency department for evaluation of right mid lateral back pain, atraumatic in nature with accompanying shortness of breath. Pain is made worse with deep inspiration and movement. Denies fevers, chills, URI symptoms, chest pain, abdominal pain, nausea, vomiting. Related Data Home Medications Medication Instructions Recorded Confirmed diphenhydramine HCl 25 mg tablet 25 mg PO BEDTIME 12/22/20 fluoxetine 20 mg capsule 20 mg PO QAM 12/22/20 gabapentin 100 mg capsule 100 mg PO TID 12/22/20 guaifenesin 100 mg/5 mL oral liquid 200 mg PO Q4H PRN 12/22/20 loratadine 10 mg tablet 10 mg PO DAILY 12/22/20 lorazepam 0.5 mg tablet 0.5 mg PO DAILY 12/22/20 meclizine 25 mg tablet 25 mg PO TID PRN 12/22/20 naproxen 500 mg tablet 500 mg PO BID 12/22/20 triamcinolone acetonide 0.1 % 3 topical Q OTHER DAY PRN 12/22/20 topical ointment zolpidem 10 mg tablet 10 mg PO BEDTIME PRN 12/22/20 atorvastatin 20 mg tablet 20 mg PO DAILY 08/15/22 emtricitabine 200 mg-tenofovir 1 tab PO DAILY 08/15/22 alafenamide fumarate 25 mg tablet (Descovy) pevlmsqf-fau-mmhsd acid 0.4 0 tab PO 08/15/22 mg-lycopene 300 mcg-lutein 250 mcg tablet (Cerovite Senior) Previous Rx's Medication Instructions Recorded docusate sodium 100 mg capsule 100 mg PO DAILY #30 caps 02/13/23 omeprazole 20 mg capsule,delayed 20 mg PO DAILY #30 caps 02/13/23 release sennosides 8.6 mg tablet (senna) 17.2 mg (2 x 8.6 mg) PO BEDTIME 02/13/23 PRN for constipation #60 tabs Allergies Allergy/AdvReac Type Severity Reaction Status Date / Time No Known Allergies Allergy Verified 02/13/23 10:35 [No Known Allergies*] Review of Systems Review of Systems: Yes all other systems are reviewed and are negative [facility] Past Medical History Attestation statement: The following information was validated with the patient. Source: old records reviewed Medical History Depression Surgical History History of esophagogastroduodenoscopy Hx of colonoscopy Family History Family History Father No problems noted. Mother No problems noted. Sister Liver cancer Brother Cancer Social History Social History Household Members: None Housing: Apartment Alcohol intake: current Alcohol intake frequency: does not drink Alcohol type: beer Years Smoked: 5 Advance Directives: No Advance Directives Information Provided: Yes Physical Exam Vital Signs: Vital Signs: Last Vital Signs Temp 98.1 F 06/01/23 18:04 Pulse 81 06/01/23 18:04 Resp 18 06/01/23 18:04 BP 104/76 06/01/23 18:04 Pulse Ox 97 06/01/23 18:04 O2 Del Method Room Air 06/01/23 18:04 BMI result Body Mass Index 26.4 Appearance: Alert.?Oriented to person, place and time. No acute distress.?Normal affect. Eyes: Pupils equal, round and reactive to light.? ENT: Pharynx normal.?? Neck: Normal inspection.? Neck supple.?? CVS: Heart sounds normal. Normal heart rate and rhythm.? Pulses normal.?? Respiratory: No respiratory distress.? Lung sounds clear to auscultation bilaterally. TTP right posterior lower chest wall Abdomen: Soft and non-tender. Normoactive bowel sounds. No pulsatile mass.??No CVA tenderness Skin: Skin warm and dry.? Normal skin color.? ? Extremities: No lower extremity edema.? No calf ttp? Neuro: Moves all extremities spontaneously. Sensation intact bilaterally. No focal neuro deficits. Ambulates with normal steady gait. Course Reevaluation(s) Reevaluation #1: CMP unremarkable, lipase within normal limits, abdominal examination benign, unlikely biliary/hepatic etiology for pain. No CVA tenderness, genitourinary symptoms, unlikely pyelonephritis, nephrolithiasis, obstructive calculi. EKG was is without acute ischemic findings, no chest pain or anginal symptoms, not consistent with ACS. Wells negative, unlikely pulmonary embolism, no clinical evidence of DVT. Chest x-ray is without evidence of acute cardiopulmonary abnormality. Discussed with patient likely etiology of muscular strain at this time, provider with acetaminophen/ibuprofen. He reports that he took ibuprofen today with some improvement in his pain. He is stable for discharge at this time, discussed worrisome signs and symptoms that would warrant re-evaluation. Advised outpatient follow-up with PCP. Time: 19:49 Medical Decision Making Medical Decision Making [facility] Narrative: Patient is a 57-year-old male with past medical history of depression presents to emergency department for evaluation of back pain shortness of breath as per HPI. At the time examination he is overall well-appearing, no respiratory distress, speaking clear full sentences. He is afebrile, without tachycardia, tachypnea, or hypoxia. Is physical examination is benign. Abdominal examination benign, clinically lower suspicion for cholecystitis, cholelithiasis. Atraumatic so do not suspect any fracture, pneumothorax. Discussed likely muscular strain given exacerbation with movement. Will obtain CBC to evaluate for leukocytosis/ anemia, CMP and lipase to evaluate for abnormal electrolytes /abnormal renal function/ abnormal hepatic/biliary function, EKG and troponin to evaluate for ischemia/ACS. Chest x-ray to evaluate for consolidation/ infiltrate/ mass/ pulmonary congestion. Differential Diagnosis Differential Diagnoses: The differential diagnosis associated with the presentation includes (As noted above) Admission/Observation Consideration of admission/observation: Escalation of care including admission/observation considered (I considered admission for back pain/shortness of breath, see course narrative for further detail) Lab Data [facility] Lab Attestation statement: I reviewed the patient's lab results. CBC is without leukocytosis, very mild normocytic anemia not meeting transfusion criteria. CMP is overall unremarkable. Lipase is within normal limits. 06/01/23 18:34 06/01/23 18:34 Labs: Lab Results 06/01/23 Range/Units 18:34 WBC 8.1 (4.8-10.8) X10*3/uL RBC 4.64 (4.60-5.80) X10*6/uL Hgb 13.1 L (14.0-18.0) g/dl Hct 39.3 L (42.0-52.0) % MCV 84.7 (80.0-98.0) fL MCH 28.2 (27.0-33.0) pg MCHC 33.3 (31.0-36.0) g/dl RDW 13.1 (11.0-16.0) % Plt Count 232 (160-400) X10*3/uL MPV 8.8 L (9.4-12.4) fL Immature Gran % (Auto) 0.2 (0.0-0.4) % Neut % (Auto) 60.0 (45-73) % Lymph % (Auto) 28.3 (20-40) % [place] % (Auto) 8.5 (2-11) % Eos % (Auto) 2.3 (0-4) % Baso % (Auto) 0.7 (0-2) % Lymph # (Auto) 2.3 (1.2-4.9) X10*3/uL [place] # (Auto) 0.7 (0.1-1.2) X10*3/uL Eos # (Auto) 0.2 (0.0-0.4) X10*3/uL Baso # (Auto) 0.1 (0.0-0.2) X10*3/uL Abs Immat Gran (auto) 0.02 (0.00-0.03) X10*3/uL Absolute Neuts (auto) 4.8 (2.0-8.3) x10*3/uL Absolute Nucleated RBC 0.000 (0.0-0.012) X10*3/uL Nucleated RBC % (auto) 0.0 (0.0-0.2) /100WBC PT 11.4 (11.1-13.3) SEC INR 0.9 (0.9-1.1) Sodium 139 (135-145) mmol/L Potassium 4.2 (3.3-5.1) mmol/L Chloride 105 (96-108) mmol/L Carbon Dioxide 25 (22-29) mmol/L Anion Gap 13 (12-20) BUN 10 (9-16) mg/dL Creatinine 1.16 (0.5-1.4) mg/dL Estim Creat Clear Calc 54.9 Estimated GFR > 60 Random Glucose 120 H (60-115) mg/dL Calcium 9.3 (8.4-10.2) mg/dL Total Bilirubin 0.5 (0.0-1.0) mg/dL AST 23 (5-37) U/L ALT 18 (0-40) U/L Alkaline Phosphatase 78 (39-117) U/L Total Protein 7.3 (6.5-8.0) g/dL Albumin 4.2 (3.5-5.0) g/dL Lipase 21 (8-78) U/L COVID-19 (RICKIE) Negative (Negative) COVID-19 Clin Com See Note Influenza Type A (CHAVEZ) Negative (Negative) Influenza Type B (CHAVEZ) Negative (Negative) Influenza A & B Note See Note Independent Interpretation I performed an independent interpretation of an: EKG and Plain X-Ray (Adverse interpreted chest x-ray and agree with radiologist impression.) Interpretation: Rate: 69 Rhythm:? Normal sinus rhythm [place]:? Normal Normal P waves.? Normal CARMEN.?? Normal QRS complex.?? ST T wave :??No ST elevation, no ST depression, no T-wave inversion qTC: 411 The study has been interpreted contemporaneously by me. Discharge Plan Discharge Clinical Impression: Back pain Patient Disposition: Home, Self-Care Instructions: Back Pain (ED) Additional Instructions: You can take ibuprofen 200 mg, 3 tablets (600mg) every 6-8 hours as needed for pain, in addition to Tylenol 500 mg, 2 tablets (1,000mg) every 4-6 hours as needed for pain, but not to exceed 3 doses daily (3,000mg). Please contact your primary care provider and arrange for a follow-up visit within 3 days. You may return back to emergency department any new or worsening symptoms or concerns. Prescriptions: No Action loratadine 10 mg tablet 10 mg PO DAILY diphenhydramine HCl 25 mg tablet 25 mg PO BEDTIME fluoxetine 20 mg capsule 20 mg PO QAM zolpidem 10 mg tablet 10 mg PO BEDTIME PRN gabapentin 100 mg capsule 100 mg PO TID lorazepam 0.5 mg tablet 0.5 mg PO DAILY triamcinolone acetonide 0.1 % ointment 3 topical Q OTHER DAY PRN meclizine 25 mg tablet 25 mg PO TID PRN guaifenesin 100 mg/5 mL liquid 200 mg PO Q4H PRN naproxen 500 mg tablet 500 mg PO BID atorvastatin 20 mg tablet 20 mg PO DAILY Cerovite Senior 0.4 mg-300 mcg- 250 mcg tablet 0 tab PO [place]covy 200-25 mg tablet 1 tab PO DAILY omeprazole 20 mg capsule,delayed release(DR/EC) 20 mg PO DAILY Qty: 30 6RF sennosides [senna] 8.6 mg tablet 17.2 mg PO BEDTIME PRN (Reason: for constipation) Qty: 60 6RF docusate sodium 100 mg capsule 100 mg PO DAILY Qty: 30 6RF Referrals: Name,MD Homero [Primary Care Provider] -
--- NOTE | 2023-06-01 18:11 | ECG_ITS ---
Test Reason : SOB Blood Pressure : / mmHG Vent. Rate : 069 BPM Atrial Rate : 069 BPM P-R Int : 140 ms QRS Dur : 088 ms QT Int : 384 ms P-R-T Axes : 061 067 049 degrees QTc Int : 411 ms Normal sinus rhythm Normal ECG When compared with ECG of 27-MAY-2023 01:07, No significant change was found Referred By: Vanessa Hernandes Electronically Signed By:GEO MARTINEZ MD
[2023-06-01 18:44] LABS: MANUAL DIFF FLAG NO
[2023-06-01 18:45] LABS: Basophils Absolute Auto 0.1 X10*3/uL (0.0-0.2); Basophils Percent Auto 0.7 % (0-2); Eosinophils Absolute Auto 0.2 X10*3/uL (0.0-0.4); Eosinophils Percent Auto 2.3 % (0-4); Hematocrit 39.3 % (42.0-52.0); Hemoglobin 13.1 g/dl (14.0-18.0); Imm Gran Abs Auto 0.02 X10*3/uL (0.00-0.03); Imm Gran Pct Auto 0.2 % (0.0-0.4); Lymphocytes Absolute Auto 2.3 X10*3/uL (1.2-4.9); Lymphocytes Percent Auto 28.3 % (20-40); Mean Corpuscular HGB Conc 33.3 g/dl (31.0-36.0); Mean Corpuscular Hemoglobin 28.2 pg (27.0-33.0); Mean Corpuscular Volume 84.7 fL (80.0-98.0); Mean Platelet Volume 8.8 fL (9.4-12.4); Monocytes Absolute Auto 0.7 X10*3/uL (0.1-1.2); Monocytes Percent Auto 8.5 % (2-11); Neutrophils Absolute Auto 4.8 x10*3/uL (2.0-8.3); Platelet Count 232 X10*3/uL (160-400); Red Blood Count 4.64 X10*6/uL (4.60-5.80); Red Cell Distribution Width 13.1 % (11.0-16.0); White Blood Count 8.1 X10*3/uL (4.8-10.8)
[2023-06-01 18:51] LABS: INTERNATIONAL NORM RATIO 0.9 (0.9-1.1); Prothrombin Time 11.4 SEC (11.1-13.3)
[2023-06-01 18:58] LABS: Alanine Aminotransferase 18 U/L (0-40); Albumin Level 4.2 g/dL (3.5-5.0); Alkaline Phosphatase 78 U/L (39-117); Anion Gap 13 (12-20); Aspartate Amino Transferase 23 U/L (5-37); Bilirubin Total 0.5 mg/dL (0.0-1.0); Blood Urea Nitrogen 10 mg/dL (9-16); Calcium 9.3 mg/dL (8.4-10.2); Carbon Dioxide 25 mmol/L (22-29); Chloride 105 mmol/L (96-108); Creatinine Clr Calc Pharmacy 54.9; Estimated Glomerular Filt Rate > 60; Glucose Random 120 mg/dL (60-115); Lipase 21 U/L (8-78); Potassium 4.2 mmol/L (3.3-5.1); Sodium 139 mmol/L (135-145); Total Protein 7.3 g/dL (6.5-8.0)
[2023-06-01 19:01] LABS: COVID-19 Test Negative (Negative); IDNOW Serial# 08D9AD1C; IDNOW Serial# BCCEAD1C; Influenza A Negative (Negative); Influenza B2 Negative (Negative)
[2023-06-01] MEDS: Ibuprofen 600 MG TABLET PO (19:54)
[2023-06-01] MEDS: Acetaminophen 325 MG TABLET 975 MG PO (19:54)
== END 2023-06-01 20:03 | disposition home or self-care (01) ==
PROVIDERS: Nurse Practitioner Family; Emergency Provider Internal Medicine; PCP Internal Medicine Geriatric Medicine
DX: M54.6 Pain in thoracic spine (principal); Z11.52 Encounter for screening for COVID-19
CPT/HCPCS: 71046; 80053; 83690; 85025; 85610; 87502; 87635; 93005; 99283

== ENCOUNTER 2023-06-15 12:49 | Emergency (ER) | payer OTHER, SELFPAY ==
--- NOTE | ~2023-06-15 | XR_ITS ---
EXAMINATION: XR CHEST CLINICAL INFORMATION: Chest pain COMPARISON: 06/01/2023 TECHNIQUE: 2 views of the chest were obtained. FINDINGS: No acute finding. The lung asher are felt to be grossly clear. There is no effusion. No infiltrate. The cardiac silhouette is within normal limits. The hilar regions felt to be comparable. Degenerative change in the thoracic spine is once again seen. XR/XR chest 2V IMPRESSION: No acute finding.
--- NOTE | ~2023-06-15 | CT_ITS ---
EXAMINATION: CT ABDOMEN AND PELVIS WITHOUT CONTRAST CLINICAL INFORMATION: Right flank pain. COMPARISON: CT abdomen/pelvis 05/02/2019. TECHNIQUE: Multidetector volumetric imaging was performed from the superior aspect of the liver through the pubic symphysis. Sagittal and coronal reformatted images were obtained on the technologist's workstation. This CT examination was performed using dose optimization techniques as appropriate, variously including the following: *Automated exposure control *Adjustment of mA and/or kV according to patient size (this includes techniques or standardized protocols for targeted exams where dose is matched to indication/reason for exam; i.e. extremities or head) *Use of iterative reconstruction technique DLP: 386 mGy-cm FINDINGS: The lack of intravenous contrast limits evaluation of the solid visceral organs including the liver, spleen, pancreas, and kidneys. LUNG BASES: No focal consolidation or pleural effusion. LIVER, GALLBLADDER, AND BILIARY TREE: The liver is normal in size, shape and attenuation. A 1 cm lesion in the right hepatic lobe (3:21) is unchanged dating back to 04/16/2019, which is reassuring for a benign process such as hemangioma. No biliary ductal dilatation. The gallbladder is unremarkable with no evidence of radiopaque gallstones, gallbladder wall thickening, or obvious pericholecystic inflammatory changes. PANCREAS: Limited noncontrast examination. No main ductal dilatation. No significant peripancreatic fat stranding or free fluid. SPLEEN: Unremarkable. ADRENAL GLANDS: Unremarkable. KIDNEYS AND URETERS: The kidneys are normal in size, shape, and attenuation. No hydronephrosis, hydroureter, or calculi seen. No perinephric stranding. BLADDER: Unremarkable. GASTROINTESTINAL TRACT: Limited evaluation of gastric wall thickening due to underdistention. Small hiatal hernia. The stomach and the small bowel are nondilated. Normal appendix. Colonic diverticulosis without significant pericolonic fat stranding or free fluid. No evidence of bowel obstruction. Equivocal rectal wall thickening and descending colonic wall thickening, suboptimally assessed due to under distention. Submucosal fatty deposition in the terminal ileum and right hemicolon.. ABDOMINAL WALL: No significant hernia is appreciated. LYMPH NODES: No lymphadenopathy. VASCULAR: Normal caliber abdominal aorta. PELVIC VISCERA: Enlarged prostate protruding into the bladder base. OSSEOUS STRUCTURES: No acute or aggressive appearing osseous findings. CT/CT abdomen pelvis wo IV con IMPRESSION: 1. No nephrolithiasis or hydronephrosis. 2. Equivocal rectal and descending colonic wall thickening, suboptimally assessed due to underdistention. No significant pericolonic/perirectal fat stranding or free fluid. No evidence of bowel obstruction. Recommend clinical correlation for mild proctocolitis. 3. Submucosal fatty deposition in the terminal ileum and right hemicolon, nonspecific could be related with patient body habitus or chronic inflammatory bowel disease, no significant associated pericolonic fat stranding or free fluid to suspected acute flare. 4. Enlarged prostate.
[2023-06-15 12:57] VITALS: BP 117/79; PULSE 79; RESP 19; TEMP 35.7; O2SAT 98; BMI 26.3
--- NOTE | 2023-06-15 12:58 | ED.BACK ---
HPI - Back Pain/Injury General Chief Complaint: General Medical Stated Complaint: back pain Time Seen by Provider: 06/15/23 15:47 Source: patient Mode of arrival: ambulatory Limitations: no limitations History of Present Illness HPI Narrative: Patient is a 57-year-old male with history of GERD, MARCO ANTONIO, mild intellectual disability presenting to the emergency department with complaint of right upper back/ flank pain since yesterday. States did have a brief period where pain resolved, then pain returned. He denies any nausea, vomiting, diarrhea. Denies any dysuria, hematuria or other urinary symptoms. Denies any cough or recent fevers but does complain some shortness of breath. Denies chest pain or palpitations. Denies recent calf pain or swelling. Denies any falls or other trauma. Reports pain increases with movement. MD elicited complaint: back pain Onset (ago): day(s) Timing: intermittent Severity: severe Pain scale (0-10): 9 Similar Symptoms Previously: No Quality: sharp Location: right flank Radiation: none Exacerbating factors: none Relieving factors: none Associated symptoms: other (intermittent shortness of breath) Work related injury: No Related Data Home Medications Medication Instructions Recorded Confirmed diphenhydramine HCl 25 mg tablet 25 mg PO BEDTIME 12/22/20 fluoxetine 20 mg capsule 20 mg PO QAM 12/22/20 gabapentin 100 mg capsule 100 mg PO TID 12/22/20 guaifenesin 100 mg/5 mL oral liquid 200 mg PO Q4H PRN 12/22/20 loratadine 10 mg tablet 10 mg PO DAILY 12/22/20 lorazepam 0.5 mg tablet 0.5 mg PO DAILY 12/22/20 meclizine 25 mg tablet 25 mg PO TID PRN 12/22/20 naproxen 500 mg tablet 500 mg PO BID 12/22/20 triamcinolone acetonide 0.1 % 3 topical Q OTHER DAY PRN 12/22/20 topical ointment zolpidem 10 mg tablet 10 mg PO BEDTIME PRN 12/22/20 atorvastatin 20 mg tablet 20 mg PO DAILY 08/15/22 emtricitabine 200 mg-tenofovir 1 tab PO DAILY 08/15/22 alafenamide fumarate 25 mg tablet (Descovy) [id number]-hwtfh acid 0.4 0 tab PO 08/15/22 mg-lycopene 300 mcg-lutein 250 mcg tablet (Cerovite Senior) Previous Rx's Medication Instructions Recorded docusate sodium 100 mg capsule 100 mg PO DAILY #30 caps 02/13/23 omeprazole 20 mg capsule,delayed 20 mg PO DAILY #30 caps 02/13/23 release sennosides 8.6 mg tablet (senna) 17.2 mg (2 x 8.6 mg) PO BEDTIME 02/13/23 PRN for constipation #60 tabs cyclobenzaprine 5 mg tablet 5 mg PO TID PRN muscle spasm #10 06/15/23 tabs lidocaine 5 % topical patch 1 patch topical DAILY #15 ea 06/15/23 Allergies Allergy/AdvReac Type Severity Reaction Status Date / Time No Known Allergies Allergy Verified 02/13/23 10:35 [No Known Allergies*] Review of Systems Review of Systems: As per HPI. Yes all other systems are reviewed and are negative Constitutional: Constitutional: Reports as per HPI [facility] Past Medical History Medical History Depression Surgical History History of esophagogastroduodenoscopy Hx of colonoscopy Family History Family History Father No problems noted. Mother No problems noted. Sister Liver cancer Brother Cancer Social History Social History Household Members: None Housing: Apartment Alcohol intake: current Alcohol intake frequency: does not drink Alcohol type: beer Years Smoked: 5 Smoked in Last 30 Days: No Use of substances other than those prescribed or required for medical reasons: No Advance Directives: No Advance Directives Information Provided: No Physical Exam Vital Signs: Vital Signs: Last Vital Signs Temp 97.9 F 06/15/23 14:49 Pulse 65 06/15/23 14:49 Resp 12 06/15/23 14:49 BP 137/92 H 06/15/23 14:49 Pulse Ox 97 06/15/23 14:49 O2 Del Method Room Air 06/15/23 14:49 BMI result Body Mass Index 26.3 Vital signs have been reviewed and appear to be correct. Blood pressure mildly elevated. Heart rate normal. Respiratory rate normal. Temperature normal. Oxygen saturation normal. Const: General: cooperative, healthy appearing and no acute distress Orientation/consciousness: oriented to person, oriented to place, oriented to time and patient oriented x3 Limitations: no limitations HEENT: Head: Yes normocephalic and Yes atraumatic Ears: external ears normal General nose exam: Normal external nose present Face and sinus: Yes face symmetric Mouth: oropharynx normal and moist mucous membranes Throat: Yes uvula midline Eyes: Pupils: Equal, round and reactive pupils present Neck: Neck: Yes normal visual inspection and Yes supple Resp: Effort & Inspection: normal respiratory effort and able to speak in complete sentences Auscultation: clear to auscultation bilaterally Cardio: Rate: regular rate Rhythm: regular rhythm Heart sounds: S1 normal heart sound present and S2 normal heart sound present GI: Palpation (GI): Soft to palpation and nontender Auscultation: normoactive bowel sounds : General: Yes CVA tenderness on the right Back/Spine/Pelvis: Back: CVA tenderness Cervical Spine: normal cervical lordosis, cervical ROM normal and No Cervical spine tenderness Thoracic/Lumbar Spine: No thoracic spinal tenderness and No lumbar spinal tenderness Skin: General skin exam: elasticity normal and turgor normal Neuro: General: oriented to person, oriented to place, oriented to time, patient oriented x3, moves all extremities, no focal motor deficits and CN's II-XI intact bilaterally Cranial nerves: Yes Equal, round and reactive pupils present Cognition (Neuro): normal cognition Extrem: General: Yes full ROM, Yes no pedal edema and Yes no calf tenderness Psych: Mental Status: mental status grossly normal Affect: normal affect Thought process: Normal thought process present Course Course Course Narrative: This is a rapid medical exam. Deferred additional HPi, ROS, PE to primary provider. 57 yo male here with right flank pain/posterior rib pain with SOB x 2 weeks (intermittent). No URI symptoms, fever, urinary symptoms, vomiting or diarrhea. No recent travel/surgeries No leg swelling or leg pain Will obtain labs, EKG, UA, CXR, viral testing VSS Medications Administered Discontinued Medications Generic Name Dose Route Start Last Admin Trade Name Freq PRN Reason Stop Dose Admin Sodium Chloride 1,000 mls @ 999 mls/hr 06/15/23 16:45 06/15/23 17:00 Ns IV 06/15/23 17:45 999 mls/hr .Q1H1M SOMMER Administration Ketorolac Tromethamine 15 mg 06/15/23 16:33 06/15/23 17:02 Ketorolac Tromethamine 15 Mg/Ml Vial IVPUSH 06/15/23 16:34 15 mg ONCE ONE Administration Medical Decision Making Medical Decision Making [facility] Narrative: Patient is a 57-year-old male with history of GERD, MARCO ANTONIO, mild intellectual disability presenting to the emergency department with complaint of right flank pain since yesterday. On exam patient is awake, A+Ox3, VS WNL, afebrile, normal neurological exam without focal deficits, physical exam findings as above. Given reported symptoms and physical exam findings, initial differential includes UTI, pyelonephritis, renal colic, pneumonia, muscle strain. Low risk for PE based on Wells score. Labs notable for no leukocytosis, mild anemia consistent with prior results, negative troponin. X-ray chest notable for no evidence of pneumonia. No evidence of nephrolithiasis or hydronephrosis on CT scan. My interpretation is in agreement with the radiologist's interpretation. All results discussed with patient all questions answered. Will treat patient for muscle strain with cyclobenzaprine and lidocaine patches. Patient reports he has an appointment with his PCP on Saturday. Advised patient to keep this appointment. Return precautions discussed at bedside. Patient verbalized understanding of and agreement with plan. Wells' Criteria for Pulmonary Embolism from [email or web address] on 06/15/2023 All calculations should be rechecked by clinician prior to use RESULT SUMMARY: 0.0 points Low risk group: 1.3% chance of PE in an ED population. Another study assigned scores <=4 as ?PE Unlikely? and had a 3% incidence of PE. INPUTS: Clinical signs and symptoms of DVT ?> 0 = No PE is #1 diagnosis OR equally likely ?> 0 = No Heart rate > 100 ?> 0 = No Immobilization at least 3 days OR surgery in the previous 4 weeks ?> 0 = No Previous, objectively diagnosed PE or DVT ?> 0 = No Hemoptysis ?> 0 = No Malignancy w/ treatment within 6 months or palliative ?> 0 = No Differential Diagnosis Differential Diagnoses: The differential diagnosis associated with the presentation includes As per [facility]. Admission/Observation Consideration of admission/observation: Escalation of care including admission/observation considered Lab Data [facility] Lab Attestation statement: I reviewed the patient's lab results. As per [facility]. 06/15/23 13:12 06/15/23 13:11 Labs: Lab Results 06/15/23 06/15/23 Range/Units 13:11 13:12 WBC 6.8 (4.8-10.8) X10*3/uL RBC 4.77 (4.60-5.80) X10*6/uL Hgb 13.3 L (14.0-18.0) g/dl Hct 39.9 L (42.0-52.0) % MCV 83.6 (80.0-98.0) fL MCH 27.9 (27.0-33.0) pg MCHC 33.3 (31.0-36.0) g/dl RDW 13.2 (11.0-16.0) % Plt Count 246 (160-400) X10*3/uL MPV 8.5 L (9.4-12.4) fL Immature Gran % (Auto) 0.3 (0.0-0.4) % Neut % (Auto) 56.3 (45-73) % Lymph % (Auto) 30.0 (20-40) % [place] % (Auto) 9.0 (2-11) % Eos % (Auto) 3.2 (0-4) % Baso % (Auto) 1.2 (0-2) % Lymph # (Auto) 2.0 (1.2-4.9) X10*3/uL [place] # (Auto) 0.6 (0.1-1.2) X10*3/uL Eos # (Auto) 0.2 (0.0-0.4) X10*3/uL Baso # (Auto) 0.1 (0.0-0.2) X10*3/uL Abs Immat Gran (auto) 0.02 (0.00-0.03) X10*3/uL Absolute Neuts (auto) 3.8 (2.0-8.3) x10*3/uL Absolute Nucleated RBC 0.000 (0.0-0.012) X10*3/uL Nucleated RBC % (auto) 0.0 (0.0-0.2) /100WBC PT 11.4 (11.1-13.3) SEC INR 0.9 (0.9-1.1) Sodium 141 (135-145) mmol/L Potassium 4.0 (3.3-5.1) mmol/L Chloride 107 (96-108) mmol/L Carbon Dioxide 27 (22-29) mmol/L Anion Gap 11 L (12-20) BUN 7 L (9-16) mg/dL Creatinine 1.10 (0.5-1.4) mg/dL Estim Creat Clear Calc 57.9 Estimated GFR > 60 Random Glucose 98 (60-115) mg/dL Calcium 9.5 (8.4-10.2) mg/dL Total Bilirubin 0.5 (0.0-1.0) mg/dL Direct Bilirubin 0.1 (0.0-0.5) mg/dL AST 26 (5-37) U/L ALT 23 (0-40) U/L Alkaline Phosphatase 78 (39-117) U/L Troponin I High Sens < 2.7 (<3.5-35.0) ng/L Total Protein 7.5 (6.5-8.0) g/dL Albumin 4.4 (3.5-5.0) g/dL Lipase 17 (8-78) U/L Urine Color Dark Yellow Urine Appearance Clear Urine pH 6.5 (5.0-9.0) Ur Specific [place] 1.015 (1.005-1.025) Urine Protein Negative (Neg-Trace) mg/dL Urine Glucose (UA) Negative (Negative) mg/dL Urine Ketones Trace (Negative) mg/dL Urine Blood Small (1+) H (Negative) Urine Nitrite Negative (Negative) Ur Leukocyte Esterase Negative (Negative) Urine RBC 11-20 H (0-2) /HPF Urine WBC 0-5 (0-5) /HPF Ur Squamous Epith Cells 0-2 (0-2) /HPF Urine Bacteria None Seen (None Seen) Hyaline Casts 0-2 (0-2) /LPF COVID-19 (RICKIE) Negative (Negative) COVID-19 Clin Com See Note Independent Interpretation I performed an independent interpretation of an: Plain X-Ray and CT Scan Interpretation: No evidence of pneumonia on chest x-ray No nephrolithiasis or hydronephrosis on CT Radiology Impression Discussion of test interpretation with radiology: I have reviewed the radiologist's reading. Radiologist Impression: XR/XR chest 2V IMPRESSION: No acute finding. CT/CT abdomen pelvis wo IV con IMPRESSION: 1. No nephrolithiasis or hydronephrosis. 2. Equivocal rectal and descending colonic wall thickening, suboptimally assessed due to underdistention. No significant pericolonic/perirectal fat stranding or free fluid. No evidence of bowel obstruction. Recommend clinical correlation for mild proctocolitis. 3. Submucosal fatty deposition in the terminal ileum and right hemicolon, nonspecific could be related with patient body habitus or chronic inflammatory bowel disease, no significant associated pericolonic fat stranding or free fluid to suspected acute flare. 4. Enlarged prostate. External Record Review External record reviewed: Inpatient record, Office record and Outpatient record Prescription Management I considered prescription management with: Pain Medication and Other Discharge Plan Discharge Clinical Impression: Muscle strain of right upper back Patient Disposition: Home, Self-Care Instructions: Muscle Strain (DC) Additional Instructions: You were evaluated in the emergency department today for back pain. Your evaluation did not show signs of medical conditions requiring emergent intervention at this time. We recommended that you use ibuprofen or Tylenol per package directions every 6 hours as needed for pain. If necessary, you can alternate these medications so that you take one medication every 3 hours. For instance, at noon take ibuprofen, then at 3:00 p.m. take Tylenol, then at 6:00 p.m. take ibuprofen. You have been prescribed a muscle relaxer which you may take every 8 hours as needed for spasms. You have been prescribed 5% topical lidocaine patches which you can wear for up to 12 hours in a 24 hour period. Do not apply heat directly over the patches. Please schedule an appointment for follow-up with your primary care physician this week for further evaluation of your symptoms. Return to the emergency department if you experience worsening back pain, difficulty walking, fevers, numbness, tingling, incontinence, groin numbness or tingling, or any other concerning symptoms. Prescriptions: New cyclobenzaprine 5 mg tablet 5 mg PO TID PRN (Reason: muscle spasm) Qty: 10 0RF lidocaine 5 % adhesive patch,medicated 1 patch topical DAILY Qty: 15 0RF Rx Instructions: leave on most painful area for up to 12 hrs No Action loratadine 10 mg tablet 10 mg PO DAILY diphenhydramine HCl 25 mg tablet 25 mg PO BEDTIME fluoxetine 20 mg capsule 20 mg PO QAM zolpidem 10 mg tablet 10 mg PO BEDTIME PRN gabapentin 100 mg capsule 100 mg PO TID lorazepam 0.5 mg tablet 0.5 mg PO DAILY triamcinolone acetonide 0.1 % ointment 3 topical Q OTHER DAY PRN meclizine 25 mg tablet 25 mg PO TID PRN guaifenesin 100 mg/5 mL liquid 200 mg PO Q4H PRN naproxen 500 mg tablet 500 mg PO BID atorvastatin 20 mg tablet 20 mg PO DAILY Cerovite Senior 0.4 mg-300 mcg- 250 mcg tablet 0 tab PO [place] 200-25 mg tablet 1 tab PO DAILY omeprazole 20 mg capsule,delayed release(DR/EC) 20 mg PO DAILY Qty: 30 6RF sennosides [senna] 8.6 mg tablet 17.2 mg PO BEDTIME PRN (Reason: for constipation) Qty: 60 6RF docusate sodium 100 mg capsule 100 mg PO DAILY Qty: 30 6RF
--- NOTE | 2023-06-15 12:59 | ECG_ITS ---
Test Reason : back pain Blood Pressure : / mmHG Vent. Rate : 075 BPM Atrial Rate : 075 BPM P-R Int : 130 ms QRS Dur : 086 ms QT Int : 370 ms P-R-T Axes : 076 064 048 degrees QTc Int : 413 ms Normal sinus rhythm Normal ECG When compared with ECG of 01-JUN-2023 18:29, No significant change was found Referred By: Delia Boyd Electronically Signed By:GEO MARTINEZ MD
[2023-06-15 13:19] LABS: MANUAL DIFF FLAG NO
[2023-06-15 13:21] LABS: Basophils Absolute Auto 0.1 X10*3/uL (0.0-0.2); Basophils Percent Auto 1.2 % (0-2); Eosinophils Absolute Auto 0.2 X10*3/uL (0.0-0.4); Eosinophils Percent Auto 3.2 % (0-4); Hematocrit 39.9 % (42.0-52.0); Hemoglobin 13.3 g/dl (14.0-18.0); Imm Gran Abs Auto 0.02 X10*3/uL (0.00-0.03); Imm Gran Pct Auto 0.3 % (0.0-0.4); Mean Corpuscular HGB Conc 33.3 g/dl (31.0-36.0); Mean Corpuscular Hemoglobin 27.9 pg (27.0-33.0); Mean Corpuscular Volume 83.6 fL (80.0-98.0); Mean Platelet Volume 8.5 fL (9.4-12.4); Monocytes Absolute Auto 0.6 X10*3/uL (0.1-1.2); Neutrophils Absolute Auto 3.8 x10*3/uL (2.0-8.3); Neutrophils Percent Auto 56.3 % (45-73); Platelet Count 246 X10*3/uL (160-400); Red Blood Count 4.77 X10*6/uL (4.60-5.80); Red Cell Distribution Width 13.2 % (11.0-16.0); White Blood Count 6.8 X10*3/uL (4.8-10.8)
[2023-06-15 13:25] LABS: Appearance Urine Clear; Color Urine Dark Yellow; Glucose Urine UA Negative (Negative); Leukocyte Esterase Urine Negative (Negative); Nitrite Urine Negative (Negative); PH 6.5 (5.0-9.0); Specific Gravity - Urine 1.015 (1.005-1.025); UMIC TRIGGER UACC YES; Urine Blood Small (1+) (Negative); Urine Ketones Trace mg/dL (Negative); Urine Protein Negative (Neg-Trace)
[2023-06-15 13:27] LABS: Bacteria Urine None Seen (None Seen); Hyaline Casts Urine 0-2 /LPF (0-2); Squamous Epithelial Cell Urine 0-2 /HPF (0-2); WBC Urine 0-5 /HPF (0-5)
[2023-06-15 13:30] LABS: INTERNATIONAL NORM RATIO 0.9 (0.9-1.1); Prothrombin Time 11.4 SEC (11.1-13.3)
[2023-06-15 13:34] LABS: COVID-19 Test Negative (Negative); IDNOW Serial# 6674DD1D
[2023-06-15 13:36] LABS: Alanine Aminotransferase 23 U/L (0-40); Albumin Level 4.4 g/dL (3.5-5.0); Alkaline Phosphatase 78 U/L (39-117); Anion Gap 11 (12-20); Aspartate Amino Transferase 26 U/L (5-37); Bilirubin Direct 0.1 mg/dL (0.0-0.5); Bilirubin Total 0.5 mg/dL (0.0-1.0); Blood Urea Nitrogen 7 mg/dL (9-16); Calcium 9.5 mg/dL (8.4-10.2); Carbon Dioxide 27 mmol/L (22-29); Chloride 107 mmol/L (96-108); Creatinine Clr Calc Pharmacy 57.9; Estimated Glomerular Filt Rate > 60; Glucose Random 98 mg/dL (60-115); Lipase 17 U/L (8-78); Sodium 141 mmol/L (135-145); Total Protein 7.5 g/dL (6.5-8.0)
[2023-06-15 13:46] LABS: Troponin-I High Sensitivity < 2.7 ng/L (<3.5-35.0)
[2023-06-15 14:49] VITALS: BP 137/92; PULSE 65; RESP 12; TEMP 36.6; O2SAT 97
[2023-06-15] MEDS: 0.9 % Sodium Chloride 1,000 ML 999 ML IV (17:00)
[2023-06-15] MEDS: Ketorolac Tromethamine 15 MG/ML VIAL IVPUSH (17:02)
== END 2023-06-15 18:32 | disposition home or self-care (01) ==
PROVIDERS: Nurse Practitioner Family; Emergency Provider Student in an Organized Health Care Education/Training Program; PCP Internal Medicine Geriatric Medicine
DX: S29.012A Strain of muscle and tendon of back wall of thorax, initial encounter (principal); X58.XXXA Exposure to other specified factors, initial encounter; R06.02 Shortness of breath; Z11.52 Encounter for screening for COVID-19; F70 Mild intellectual disabilities; G47.00 Insomnia, unspecified; G47.33 Obstructive sleep apnea (adult) (pediatric); K21.9 Gastro-esophageal reflux disease without esophagitis; Z79.899 Other long term (current) drug therapy; Y93.9 Activity, unspecified; Y92.9 Unspecified place or not applicable; Y99.9 Unspecified external cause status
CPT/HCPCS: 36415; 71046; 74176; 80048; 80076; 81001; 83690; 84484; 85025; 85610; 87635; 93005; 96361; 96374; 99284; 99285; J1885

== ENCOUNTER 2023-08-03 15:58 | Emergency (ER) | payer OTHER, SELFPAY ==
[2023-08-03 17:48] VITALS: BP 118/88; PULSE 83; RESP 16; TEMP 36.7; O2SAT 96; BMI 26.1
[2023-08-03 18:19] LABS: IDNOW Serial# 08D9AD1C; Influenza A Negative (Negative); Influenza B2 Negative (Negative)
[2023-08-03 18:20] LABS: COVID-19 Test Negative (Negative); IDNOW Serial# BCCEAD1C
--- NOTE | 2023-08-04 03:33 | ED.EXTPRO ---
HPI - Extremity Problem General Chief complaint: Extremity Injury, Upper Stated complaint: bilateral arm pain Time Seen by Provider: 08/04/23 03:32 Source: patient Mode of arrival: ambulatory Limitations: no limitations History of Present Illness HPI Narrative: 57-year-old male with a history of arthritis who presents emergency department for evaluation of bilateral upper extremity pain. Patient states the pain came on suddenly yesterday afternoon. He states that the pain is a constant dull ache to the point where he is having difficulty moving his arm secondary to pain. Patient did have rhinorrhea but denied fever, chills, cough, chest pain, shortness of breath, nausea, vomiting or arthralgias. Patient states he did not participate in any physical activity yesterday or the day before to explain his pain. Related Data Home Medications Medication Instructions Recorded Confirmed diphenhydramine HCl 25 mg tablet 25 mg PO BEDTIME 12/22/20 fluoxetine 20 mg capsule 20 mg PO QAM 12/22/20 gabapentin 100 mg capsule 100 mg PO TID 12/22/20 guaifenesin 100 mg/5 mL oral liquid 200 mg PO Q4H PRN 12/22/20 loratadine 10 mg tablet 10 mg PO DAILY 12/22/20 lorazepam 0.5 mg tablet 0.5 mg PO DAILY 12/22/20 meclizine 25 mg tablet 25 mg PO TID PRN 12/22/20 naproxen 500 mg tablet 500 mg PO BID 12/22/20 triamcinolone acetonide 0.1 % 3 topical Q OTHER DAY PRN 12/22/20 topical ointment zolpidem 10 mg tablet 10 mg PO BEDTIME PRN 12/22/20 atorvastatin 20 mg tablet 20 mg PO DAILY 08/15/22 emtricitabine 200 mg-tenofovir 1 tab PO DAILY 08/15/22 alafenamide fumarate 25 mg tablet (Descovy) kxpazova-uoe-hlaem acid 0.4 0 tab PO 08/15/22 mg-lycopene 300 mcg-lutein 250 mcg tablet (Cerovite Senior) Previous Rx's Medication Instructions Recorded docusate sodium 100 mg capsule 100 mg PO DAILY #30 caps 02/13/23 omeprazole 20 mg capsule,delayed 20 mg PO DAILY #30 caps 02/13/23 release sennosides 8.6 mg tablet (senna) 17.2 mg (2 x 8.6 mg) PO BEDTIME 02/13/23 PRN for constipation #60 tabs cyclobenzaprine 5 mg tablet 5 mg PO TID PRN muscle spasm #10 06/15/23 tabs lidocaine 5 % topical patch 1 patch topical DAILY #15 ea 06/15/23 acetaminophen 500 mg tablet 1,000 mg (2 x 500 mg) PO Q6H PRN 08/04/23 (Tylenol Extra Strength) fever or pain #20 tabs ibuprofen 400 mg tablet 400 mg PO TID PRN fever or pain 08/04/23 #30 tabs Allergies Allergy/AdvReac Type Severity Reaction Status Date / Time No Known Allergies Allergy Verified 08/03/23 17:48 [No Known Allergies*] Review of Systems Review of Systems: Yes all other systems are reviewed and are negative [facility] Past Medical History [facility] Narrative: Social history: He denies tobacco, alcohol and drug use. Medical History Depression Surgical History History of esophagogastroduodenoscopy Hx of colonoscopy Family History Family History Father No problems noted. Mother No problems noted. Sister Liver cancer Brother Cancer Social History Social History Household Members: None Housing: Apartment Alcohol intake: current Alcohol intake frequency: does not drink Alcohol type: beer Years Smoked: 5 Advance Directives: No Advance Directives Information Provided: Yes Physical Exam Vital Signs: Vital Signs: Last Vital Signs Temp 97.8 F 08/04/23 05:00 Pulse 68 08/04/23 05:00 Resp 14 08/04/23 05:00 BP 146/99 H 08/04/23 05:00 Pulse Ox 97 08/04/23 05:00 O2 Del Method Room Air 08/04/23 05:00 BMI result Body Mass Index 26.1 Vital signs were normal Exam General: Awake, alert in no distress Head: Normocephalic, atraumatic EENT: PERRL, Lids normal, sclera normal, conjunctiva normal, nose normal , ears normal, throat without erythema or exudates Neck: Supple, no adenopathy, no trachea midline or C-spine tenderness Lung: breath sounds symmetric, no wheezing, rales or rhonchi Chest: symmetric movement, nontender Heart: regular rate and rhythm, normal S1, S2 no murmurs or rubs Abdomen: soft, non-tender, nondistended, normal bowel sounds Back: no vertebral tenderness, no CVAT Extremities: Patient has symmetric pain with palpation his upper extremities, there is no increased warmth or erythema noted, no adenopathy or masses noted with palpation. He does have limited active motion of his arm secondary to his pain Neuro: Awake, alert, oriented, normal speech Psych: Pleasant, cooperative Medications Administered Discontinued Medications Generic Name Dose Route Start Last Admin Trade Name Freq PRN Reason Stop Dose Admin Sodium Chloride 1,000 mls @ 999 mls/hr 08/04/23 03:41 08/04/23 03:58 Ns IV 08/04/23 04:41 999 mls/hr .Q1H1M STA Administration Ketorolac Tromethamine 15 mg 08/04/23 03:41 08/04/23 03:58 Ketorolac Tromethamine 15 Mg/Ml Vial IVPUSH 08/04/23 03:42 15 mg ONCE STA Administration Medical Decision Making Medical Decision Making MDM Narrative: 57-year-old male with history of arthritis of his back who presents emergency department for evaluation of bilateral upper extremity pain that began suddenly yesterday afternoon. He reported subjective fevers to the nurse. He also reported rhinorrhea with no other significant symptoms. He denied drug use. The patient did not participate in any physical activity yesterday or the day before to explain his pain. Exam did reveal tenderness with palpation of his left upper extremities and limited range of motion of his upper extremities secondary to pain otherwise were no significant findings Following evaluation was ordered: CBC, CMP, CK, ESR, CRP, urinalysis, urine drug screen, COVID-19, RSV and influenza Patient was treated with normal saline x1 L and Toradol 15 mg IV 06:16 My independent interpretation patient's laboratory evaluation is as follows: CBC and CMP were normal. CK was normal at 124. CRP and ESR were not elevated. COVID-19, influenza and RSV were negative. Urine was not collected At this time I suspect that the patient has an early viral illness. Patient was prescribed Tylenol and ibuprofen He was given printed and verbal instructions and discharged home Differential Diagnosis Differential Diagnoses: The differential diagnosis associated with the presentation includes Differential diagnosis includes was not limited to rhabdomyolysis, viral syndrome, drug use, myalgias Admission/Observation Consideration of admission/observation: Escalation of care including admission/observation considered Lab Data [facility] Lab Attestation statement: I reviewed the patient's lab results. See [facility] 08/04/23 03:54 08/04/23 03:54 Labs: Lab Results 08/03/23 08/04/23 Range/Units 17:56 03:54 WBC 7.5 (4.8-10.8) X10*3/uL RBC 4.64 (4.60-5.80) X10*6/uL Hgb 12.8 L (14.0-18.0) g/dl Hct 38.6 L (42.0-52.0) % MCV 83.2 (80.0-98.0) fL MCH 27.6 (27.0-33.0) pg MCHC 33.2 (31.0-36.0) g/dl RDW 13.4 (11.0-16.0) % Plt Count 206 (160-400) X10*3/uL MPV 8.9 L (9.4-12.4) fL Immature Gran % (Auto) 0.1 (0.0-0.4) % Neut % (Auto) 39.8 L (45-73) % Lymph % (Auto) 47.7 H (20-40) % [place] % (Auto) 9.8 (2-11) % Eos % (Auto) 1.9 (0-4) % Baso % (Auto) 0.7 (0-2) % Lymph # (Auto) 3.6 (1.2-4.9) X10*3/uL [place] # (Auto) 0.7 (0.1-1.2) X10*3/uL Eos # (Auto) 0.1 (0.0-0.4) X10*3/uL Baso # (Auto) 0.1 (0.0-0.2) X10*3/uL Abs Immat Gran (auto) 0.01 (0.00-0.03) X10*3/uL Absolute Neuts (auto) 3.0 (2.0-8.3) x10*3/uL Absolute Nucleated RBC 0.000 (0.0-0.012) X10*3/uL Nucleated RBC % (auto) 0.0 (0.0-0.2) /100WBC ESR 4 (0-15) MM/HR Sodium 142 (135-145) mmol/L Potassium 4.4 (3.3-5.1) mmol/L Chloride 106 (96-108) mmol/L Carbon Dioxide 28 (22-29) mmol/L Anion Gap 12 (12-20) BUN 9 (9-16) mg/dL Creatinine 1.17 (0.5-1.4) mg/dL Estim Creat Clear Calc 54.4 Estimated GFR > 60 Random Glucose 111 (60-115) mg/dL Calcium 9.3 (8.4-10.2) mg/dL Total Bilirubin 0.3 (0.0-1.0) mg/dL AST 23 (5-37) U/L ALT 22 (0-40) U/L Alkaline Phosphatase 83 (39-117) U/L Total Creatine Kinase 124 (38-174) U/L C-Reactive Protein < 0.10 (< or = 0.50) mg/dL Total Protein 7.6 (6.5-8.0) g/dL Albumin 4.5 (3.5-5.0) g/dL COVID-19 (RICKIE) Negative (Negative) COVID-19 Clin Com See Note Influenza Type A (CHAVEZ) Negative (Negative) Influenza Type B (CHAVEZ) Negative (Negative) Influenza A & B Note See Note Independent Historian Clinical information obtained from an independent historian. History obtained from or confirmed by: Friend Discharge Plan Discharge Clinical Impression: Acute viral syndrome, Myalgia Patient Disposition: Home, Self-Care Instructions: Viral Syndrome (ED), Musculoskeletal Pain (ED) Additional Instructions: Your blood work was normal. Your COVID-19, RSV and influenza tests were negative. At this time I believe that your symptoms are caused by a viral infection and I believe that you probably get sicker over the next several days developed fever, chills, runny nose, cough. Increase your fluid intake to prevent dehydration Take ibuprofen 200 mg pills, 2 pills every 6 hours as needed for pain or fever. Take Tylenol (acetaminophen) 500 mg pills, 2 pills every 6 hours as needed for pain or fever. Follow-up with your doctor in 2 days. Please return to the emergency department if your symptoms get worse or if you develop any symptoms that are concerning to you. Prescriptions: New acetaminophen [Tylenol Extra Strength] 500 mg tablet 1,000 mg PO Q6H PRN (Reason: fever or pain) Qty: 20 0RF ibuprofen 400 mg tablet 400 mg PO TID PRN (Reason: fever or pain) Qty: 30 0RF No Action cyclobenzaprine 5 mg tablet 5 mg PO TID PRN (Reason: muscle spasm) Qty: 10 0RF lidocaine 5 % adhesive patch,medicated 1 patch topical DAILY Qty: 15 0RF Rx Instructions: leave on most painful area for up to 12 hrs loratadine 10 mg tablet 10 mg PO DAILY diphenhydramine HCl 25 mg tablet 25 mg PO BEDTIME fluoxetine 20 mg capsule 20 mg PO QAM zolpidem 10 mg tablet 10 mg PO BEDTIME PRN gabapentin 100 mg capsule 100 mg PO TID lorazepam 0.5 mg tablet 0.5 mg PO DAILY triamcinolone acetonide 0.1 % ointment 3 topical Q OTHER DAY PRN meclizine 25 mg tablet 25 mg PO TID PRN guaifenesin 100 mg/5 mL liquid 200 mg PO Q4H PRN naproxen 500 mg tablet 500 mg PO BID atorvastatin 20 mg tablet 20 mg PO DAILY Cerovite Senior 0.4 mg-300 mcg- 250 mcg tablet 0 tab PO Descovy 200-25 mg tablet 1 tab PO DAILY omeprazole 20 mg capsule,delayed release(DR/EC) 20 mg PO DAILY Qty: 30 6RF sennosides [senna] 8.6 mg tablet 17.2 mg PO BEDTIME PRN (Reason: for constipation) Qty: 60 6RF docusate sodium 100 mg capsule 100 mg PO DAILY Qty: 30 6RF
[2023-08-04 03:56] LABS: MANUAL DIFF FLAG NO
[2023-08-04 03:58] LABS: Basophils Absolute Auto 0.1 X10*3/uL (0.0-0.2); Basophils Percent Auto 0.7 % (0-2); Eosinophils Absolute Auto 0.1 X10*3/uL (0.0-0.4); Eosinophils Percent Auto 1.9 % (0-4); Hematocrit 38.6 % (42.0-52.0); Hemoglobin 12.8 g/dl (14.0-18.0); Imm Gran Abs Auto 0.01 X10*3/uL (0.00-0.03); Imm Gran Pct Auto 0.1 % (0.0-0.4); Lymphocytes Absolute Auto 3.6 X10*3/uL (1.2-4.9); Lymphocytes Percent Auto 47.7 % (20-40); Mean Corpuscular HGB Conc 33.2 g/dl (31.0-36.0); Mean Corpuscular Hemoglobin 27.6 pg (27.0-33.0); Mean Corpuscular Volume 83.2 fL (80.0-98.0); Mean Platelet Volume 8.9 fL (9.4-12.4); Monocytes Absolute Auto 0.7 X10*3/uL (0.1-1.2); Monocytes Percent Auto 9.8 % (2-11); Neutrophils Percent Auto 39.8 % (45-73); Platelet Count 206 X10*3/uL (160-400); Red Blood Count 4.64 X10*6/uL (4.60-5.80); Red Cell Distribution Width 13.4 % (11.0-16.0); White Blood Count 7.5 X10*3/uL (4.8-10.8)
[2023-08-04] MEDS: 0.9 % Sodium Chloride 1,000 ML 999 ML IV (03:58)
[2023-08-04] MEDS: Ketorolac Tromethamine 15 MG/ML VIAL IVPUSH (03:58)
[2023-08-04 04:13] LABS: Alanine Aminotransferase 22 U/L (0-40); Albumin Level 4.5 g/dL (3.5-5.0); Alkaline Phosphatase 83 U/L (39-117); Anion Gap 12 (12-20); Aspartate Amino Transferase 23 U/L (5-37); Bilirubin Total 0.3 mg/dL (0.0-1.0); Blood Urea Nitrogen 9 mg/dL (9-16); C Reactive Protein < 0.10 mg/dL (< or = 0.50); Calcium 9.3 mg/dL (8.4-10.2); Carbon Dioxide 28 mmol/L (22-29); Chloride 106 mmol/L (96-108); Creatinine Clr Calc Pharmacy 54.4; Estimated Glomerular Filt Rate > 60; Glucose Random 111 mg/dL (60-115); Potassium 4.4 mmol/L (3.3-5.1); Sodium 142 mmol/L (135-145); Total Protein 7.6 g/dL (6.5-8.0)
[2023-08-04 04:36] LABS: Erythrocyte Sedimentation Rate 4 MM/HR (0-15)
[2023-08-04 05:00] VITALS: BP 146/99; PULSE 68; RESP 14; TEMP 36.6; O2SAT 97
--- NOTE | 2023-08-04 06:37 | PC.NURSE ---
pt family at bedside at discharge pt reports 7/10 pain at discharge. pt ambulatory pt provided with discharge packet and prescriptions. pt verbalized understanding of discharge plan
== END 2023-08-04 06:39 | disposition home or self-care (01) ==
PROVIDERS: Emergency Provider Emergency Medicine Emergency Medical Services; PCP Internal Medicine Geriatric Medicine
DX: B34.9 Viral infection, unspecified (principal); M79.10 Myalgia, unspecified site; Z20.822 Contact with and (suspected) exposure to COVID-19; Z20.828 Contact with and (suspected) exposure to other viral communicable diseases; Z79.899 Other long term (current) drug therapy
CPT/HCPCS: 36415; 80053; 82550; 85025; 85652; 86140; 87502; 87635; 96374; 99284; J1885

== ENCOUNTER 2023-08-16 10:59 | Outpatient (AMB) | payer OTHER, SELFPAY ==
--- NOTE | 2023-08-16 11:05 | MHC.OFFVIS ---
Intake Vital Signs 08/16/23 11:07 Height 5 ft 2 in Weight 147 lb 11.355 oz BMI 27.0 BP 130/104 H Blood Pressure Location Lt brachial Position Sitting Pulse 89 Intake Visit Reasons: 6 mnth follow up Intake Note: Gary presents in office in 6 months follow up of GERD. CC: Patient reports doing well and denies having any GI concerns or symptoms today. Manager Front Required: No Accompanied by: Self / Same As Patient Allergies No Known Allergies [No Known Allergies*] Allergy (Verified 08/16/23 11:12) HPI 6 mnth follow up HPI Details Assessment & Plan (1) GERD (gastroesophageal reflux disease): Code(s): K21.9 - Gastro-esophageal reflux disease without esophagitis Plan: He says that his medicines are still working well for him. The omeprazole at 20mg is controlling his GERD and the senna, and colace control his CIC well. ROV 6 mos. (2) Chronic idiopathic constipation: Code(s): K59.04 - Chronic idiopathic constipation Medications: Changed From docusate sodium 100 mg PO To docusate sodium 100 mg PO DAILY 3 0 caps 6RF Refilled omeprazole 20 mg PO DAILY 30 caps 6RF K21.9 - Gastro-eso phageal reflux dis ease without esoph agitis sennosides (senna) 17.2 mg (2 x 8.6 m g) PO BEDTIME PRN 60 tabs 6RF for co nstipation K59.04 - Chronic i diopathic constipa tion TODAY'S VISIT He is accompanied today by a male relative who is quiet but supportive. He continues to do well. The omeprazole at 20mg is controlling his GERD and the senna, and colace control his CIC well. He was recently treated with an abx for a tooth infection and some mouth wash. The tooth is broken and it will have to be removed. ROV 6 mos. [facility] Medical History Depression Surgical History History of esophagogastroduodenoscopy Hx of colonoscopy Family History Father No problems noted. Mother No problems noted. Sister Liver cancer Brother Cancer Social History Household Members: None Housing: Apartment Alcohol intake: current Alcohol intake frequency: holidays/special occasions only Alcohol type: beer Years Smoked: 5 Substance Use Type: Marijuana Review of Systems Const Denies fatigue, Denies fever(s), Denies night sweats, Denies poor appetite and Denies weight loss ENT Reports Normal hearing present, Denies dental pain, Denies dysphagia, Denies hearing loss, Denies mouth pain, Denies odynophagia, Denies throat swelling, Denies tongue swelling and Reports other (Dentition adequate) Card Reports no additional complaints Resp Reports no additional complaints GI Denies abdominal pain, Denies melena, Denies bloating, Denies hematochezia, Denies constipation, Denies GI cramping, Denies dysphagia, Denies excessive flatus, Denies early satiety, Reports heartburn, Denies diarrhea, Denies nausea, Denies odynophagia, Denies vomiting and Denies hematemesis Skin/Breast Denies pruritus, Denies lesions, Denies rash and Denies jaundice Neuro Reports Normal hearing present and Denies Abnormal speech present Endo Denies fatigue Aller/Immun Denies throat swelling and Denies tongue swelling Physical Exam Vital Signs: Last Vital Signs Pulse 89 08/16/23 11:07 BP 130/104 H 08/16/23 11:07 BMI result Body Mass Index 27.0 Const General: cooperative, no acute distress, well developed and well groomed Nutritional Appearance: average body habitus and well nourished Orientation/consciousness: oriented to person, oriented to place and oriented to time Limitations: No language barrier HEENT Head: Yes normocephalic and Yes atraumatic Eyes General: appearance normal, both eyes and all related structures Pupils: Equal, round and reactive pupils present Neck Neck: Yes normal visual inspection and Yes no lymphadenopathy Thyroid: Thyroid normal Resp Effort & Inspection: normal respiratory effort and able to speak in complete sentences Auscultation: clear to auscultation bilaterally Cardio Rate: regular rate Rhythm: regular rhythm Heart sounds: Normal, physiologic split S2 sound present Peripheral pulses: radial pulses present and posterior tibial pulses present GI Inspection: No distended and No Abdominal panniculus present Palpation (GI): Soft to palpation, nontender, no guarding, not rigid and No hepatosplenomegaly present Percussion: Yes normal to percussion Auscultation: normal bowel sounds Rectal Exam - Male: Yes deferred Skin General skin exam: no rashes or lesions noted, turgor normal, skin not dry, no jaundice, No spider nevi and no striae Rashes: no rashes Nails: normal Neuro General: oriented to person, oriented to place and oriented to time Cranial nerves: Yes Equal, round and reactive pupils present and Yes Normal hearing present Speech: No Abnormal speech present Extrem General: Yes normal to inspection, No clubbing, No cyanosis and No edema Psych Appearance: grossly normal and well kempt Mental Status: mental status grossly normal Speech and movement: Normal speech and movement present Affect: normal affect Attitude: cooperative Thought process: Normal thought process present and not confabulating Thought content: Normal thought content present Insight: Limited insight present (Psych) Judgement: Limited judgement present (Psych) Assessment & Plan Assessment & Plan (1) Chronic idiopathic constipation: Code(s): K59.04 - Chronic idiopathic constipation (2) GERD (gastroesophageal reflux disease): Code(s): K21.9 - Gastro-esophageal reflux disease without esophagitis Plan He is accompanied today by a male relative who is quiet but supportive. He continues to do well. The omeprazole at 20mg is controlling his GERD and the senna, and colace control his CIC well. He was recently treated with an abx for a tooth infection and some mouth wash. The tooth is broken and it will have to be removed. ROV 6 mos. Coding Level of Care Code Est Pt Level 3 (12368) Diagnoses Chronic idiopathic constipation K59.04 GERD (gastroesophageal reflux disease) K21.9
[2023-08-16 11:07] VITALS: BP 130/104; PULSE 89; BMI 27.0
== END 2023-08-16 11:26 | disposition home or self-care (01) ==
PROVIDERS: PCP Internal Medicine Geriatric Medicine; Visit Provider Nurse Practitioner
DX: K59.04 Chronic idiopathic constipation (principal); K21.9 Gastro-esophageal reflux disease without esophagitis
CPT/HCPCS: 99213

== ENCOUNTER → 2023-08-16 10:59 | Outpatient (BNVA) | payer OTHER, SELFPAY | PROVIDERS: PCP Internal Medicine Geriatric Medicine; Visit Provider Nurse Practitioner | DX: K21.9 Gastro-esophageal reflux disease without esophagitis (principal); K59.04 Chronic idiopathic constipation; Z79.899 Other long term (current) drug therapy | CPT/HCPCS: 99212 ==

== ENCOUNTER 2023-09-10 13:31 | Emergency (ER) | payer OTHER, SELFPAY ==
--- NOTE | ~2023-09-10 | CT_ITS ---
EXAMINATION: CT HEAD WITHOUT CONTRAST CLINICAL INFORMATION: Headache COMPARISON: Previous head CT April 2023 TECHNIQUE: Contiguous axial imaging was performed from the skull base to vertex without intravenous administration of contrast. This CT examination was performed using dose optimization techniques as appropriate, variously including the following: *Automated exposure control *Adjustment of mA and/or kV according to patient size (this includes techniques or standardized protocols for targeted exams where dose is matched to indication/reason for exam; i.e. extremities or head) *Use of iterative reconstruction technique DLP: 596 mGy-cm FINDINGS: There is no evidence of acute intracranial hemorrhage or territorial infarction. No abnormal mass effect or midline shift is seen. Lara to white matter differentiation is well preserved. No extra-axial fluid collections are identified. The ventricles are normal in size. There is no abnormal attenuation within the brain parenchyma. The osseous structures and soft tissues are normal. The mastoid air cells and visualized portions of the paranasal sinuses are well aerated. CT/CT head/brain wo IV con IMPRESSION: No acute intracranial pathology.
[2023-09-10 13:42] VITALS: BP 118/90; PULSE 88; O2SAT 98
[2023-09-10 13:52] VITALS: BP 133/104; PULSE 70; RESP 18; TEMP 36.1; O2SAT 93; BMI 26.7
--- NOTE | 2023-09-10 13:52 | ED_ITS ---
HPI - Dizziness General Chief Complaint: General Medical Stated Complaint: DIZZY,BENNETT,NAUSEA Time Seen by Provider: 09/10/23 14:59 History of Present Illness HPI Narrative: 57 y/o M patient; PMH arthritis, GERD, MARCO ANTONIO; presents from home with report of one day history of lightheadedness, generalized headache, diaphoresis, and nausea/vomiting. The patient states his symptoms began after taking a pain medication which he was prescribed after an oral left lower tooth extraction. The patient reports + photophobia and + phonophobia. He denies significant PMH of migraine headaches. He denies significant dental pain. He was prescribed an oral antibiotic but did not take it this morning due to his nausea/vomiting. He denies: diarrhea, abdominal pain, chest pain, SOB, cough/congestion, numbness/weakness/tingling. Related Data Home Medications Medication Instructions Recorded Confirmed diphenhydramine HCl 25 mg tablet 25 mg PO BEDTIME 12/22/20 fluoxetine 20 mg capsule 20 mg PO QAM 12/22/20 gabapentin 100 mg capsule 100 mg PO TID 12/22/20 guaifenesin 100 mg/5 mL oral liquid 200 mg PO Q4H PRN 12/22/20 loratadine 10 mg tablet 10 mg PO DAILY 12/22/20 lorazepam 0.5 mg tablet 0.5 mg PO DAILY 12/22/20 meclizine 25 mg tablet 25 mg PO TID PRN 12/22/20 naproxen 500 mg tablet 500 mg PO BID 12/22/20 triamcinolone acetonide 0.1 % 3 topical Q OTHER DAY PRN 12/22/20 topical ointment zolpidem 10 mg tablet 10 mg PO BEDTIME PRN 12/22/20 atorvastatin 20 mg tablet 20 mg PO DAILY 08/15/22 emtricitabine 200 mg-tenofovir 1 tab PO DAILY 08/15/22 alafenamide fumarate 25 mg tablet (Descovy) bibnheud-fec-klwfn acid 0.4 1 tab PO DAILY 08/16/23 mg-lycopene 300 mcg-lutein 250 mcg tablet (Cerovite Senior) Previous Rx's Medication Instructions Recorded docusate sodium 100 mg capsule 100 mg PO DAILY #30 caps 02/13/23 omeprazole 20 mg capsule,delayed 20 mg PO DAILY #30 caps 02/13/23 release sennosides 8.6 mg tablet (senna) 17.2 mg (2 x 8.6 mg) PO BEDTIME 02/13/23 PRN for constipation #60 tabs cyclobenzaprine 5 mg tablet 5 mg PO TID PRN muscle spasm #10 06/15/23 tabs acetaminophen 500 mg tablet 1,000 mg (2 x 500 mg) PO Q6H PRN 08/04/23 (Tylenol Extra Strength) fever or pain #20 tabs ibuprofen 400 mg tablet 400 mg PO TID PRN fever or pain 08/04/23 #30 tabs Allergies Allergy/AdvReac Type Severity Reaction Status Date / Time No Known Allergies Allergy Verified 08/16/23 11:12 [No Known Allergies*] Review of Systems 2 Review of Systems: Yes all other systems are reviewed and are negative Neurologic: Denies Sensory deficit (Neuro) [facility] Past Medical History Attestation statement: The following information was validated with the patient. Medical History Depression Surgical History History of esophagogastroduodenoscopy Hx of colonoscopy Family History Family History Father No problems noted. Mother No problems noted. Sister Liver cancer Brother Cancer Social History Social History Household Members: None Housing: Apartment Alcohol intake: former Years Smoked: 5 Smoked in Last 30 Days: No Use of substances other than those prescribed or required for medical reasons: No Substance Use Type: Marijuana Advance Directives: No Advance Directives Information Provided: Yes Physical Exam 2 Vital Signs: Vital Signs: Last Vital Signs Temp 98.2 F 09/10/23 17:32 Pulse 84 09/10/23 17:32 Resp 16 09/10/23 17:32 BP 116/78 09/10/23 17:32 Pulse Ox 94 09/10/23 17:32 O2 Del Method Room Air 09/10/23 17:32 BMI result Body Mass Index 26.7 Patient is afebrile and hemodynamically stable Const: General: diaphoretic Orientation/consciousness: patient oriented x3 HEENT: Head: Yes atraumatic Ears: TM's normal bilaterally Eyes: Pupils: Equal, round and reactive pupils present EOM: EOMs intact bilaterally Neck: Neck: Yes full ROM, Yes supple and No tender Chest: Chest palpation & inspection: normal inspection of the chest and normal palpation of entire chest wall Resp: Effort & Inspection: normal respiratory effort, able to speak in complete sentences and no respiratory distress Auscultation: clear to auscultation bilaterally Cardio: Rate: regular rate Rhythm: regular rhythm Peripheral pulses: P eripheral pulses 2+ throughout GI: Palpation (GI): Soft to palpation, not firm, nontender, no guarding and not rigid Auscultation: normal bowel sounds Neuro: General: patient oriented x3, gait normal, moves all extremities, No no focal motor deficits and CN's II-XI intact bilaterally Cranial nerves: Yes Equal, round and reactive pupils present Sensory Exam: No Sensory deficit (Neuro) Course Course Course Narrative: This is a rapid medical exam. Deferred additional HPI, ROS, PE to primary provider. 57 yo male with history of anxiety, depression, HLD here with complaints of nausea/vomiting, dizziness, headache which began after taking his morning medications including a pain medication he took after having a dental extraction yesterday. Will need labs, orthos, EKG, viral testing Will give SL zofran VSS Reevaluation(s) Reevaluation #1: Reviewed triage work up. No significant leukocytosis. Negative COVID/Flu/RSV. Added inflammatory markers with ESR and CRP. Treating with 1L IVF, IV Compazine, IV Toradol, and PO Tylenol. Time: 15:48 Reevaluation #2: Patient re-evaluated. Reports resolution of nausea. Continues to report frontal headache. Ambulated patient - patient with shuffling gait. Given patient's diaphoresis, tachycardia with ambulation, frontal headache with nausea/vomiting in the setting of recent dental procedure - will obtain CT Head. Will obtain blood cultures. ESR WNL, CRP minimally elevated compared to prior. Time: 19:03 Reevaluation #3: CT Head unremarkable. Re-evaluated patient, he states since return from CT scan he has had full resolution of headache. He denies any current nausea/vomiting. He is now ambulatory without difficulty and without shuffling gait. Discussed options of admission for observation versus discharge to home - patient and partner at bedside agreeable with discharge. Less likely bacterial source of illness given lack of leukocytosis, reassuring inflammatory markers, and patient improvement with medications as well as IVF. Possible medication reaction given new antibiotic and pain controlling medications s/p dental procedure. Discussed strict return precautions with patient and partner at bedside. Plan: Discharge to home with PCP follow up in 1 days Return precautions given Medications Administered Discontinued Medications Generic Name Dose Route Start Last Admin Trade Name Freq PRN Reason Stop Dose Admin Acetaminophen 975 mg 09/10/23 15:19 09/10/23 15:39 Acetaminophen 325 Mg Tablet PO 09/10/23 15:20 975 mg ONCE ONE Administration Sodium Chloride 1,000 mls @ 999 mls/hr 09/10/23 15:30 09/10/23 16:49 Ns IV 09/10/23 16:30 Infused .Q1H1M SOMMER Infusion Ketorolac Tromethamine 15 mg 09/10/23 15:19 09/10/23 15:36 Ketorolac Tromethamine 15 Mg/Ml Vial IVPUSH 09/10/23 15:20 15 mg ONCE ONE Administration Ondansetron HCl 4 mg 09/10/23 13:55 09/10/23 14:13 Ondansetron Odt 4 Mg Tab.Rapdis TRANSLINGU 09/10/23 13:56 4 mg ONCE ONE Administration Prochlorperazine Edisylate 10 mg 09/10/23 15:19 09/10/23 15:39 Prochlorperazine Edisylate 10 Mg/2 Ml Vial IVPUSH 09/10/23 15:20 10 mg ONCE ONE Administration Medical Decision Making Lab Data 09/10/23 14:21 09/10/23 14:21 Labs: Lab Results 09/10/23 09/10/23 Range/Units 14:21 17:38 WBC 10.9 H (4.8-10.8) X10*3/uL RBC 4.83 (4.60-5.80) X10*6/uL Hgb 13.5 L (14.0-18.0) g/dl Hct 40.1 L (42.0-52.0) % MCV 83.0 (80.0-98.0) fL MCH 28.0 (27.0-33.0) pg MCHC 33.7 (31.0-36.0) g/dl RDW 14.0 (11.0-16.0) % Plt Count 229 (160-400) X10*3/uL MPV 9.0 L (9.4-12.4) fL Immature Gran % (Auto) 0.5 H (0.0-0.4) % Neut % (Auto) 71.4 (45-73) % Lymph % (Auto) 19.4 L (20-40) % Kaufman % (Auto) 7.4 (2-11) % Eos % (Auto) 0.7 (0-4) % Baso % (Auto) 0.6 (0-2) % Lymph # (Auto) 2.1 (1.2-4.9) X10*3/uL Kaufman # (Auto) 0.8 (0.1-1.2) X10*3/uL Eos # (Auto) 0.1 (0.0-0.4) X10*3/uL Baso # (Auto) 0.1 (0.0-0.2) X10*3/uL Abs Immat Gran (auto) 0.05 H (0.00-0.03) X10*3/uL Absolute Neuts (auto) 7.8 (2.0-8.3) x10*3/uL Absolute Nucleated RBC 0.000 (0.0-0.012) X10*3/uL Nucleated RBC % (auto) 0.0 (0.0-0.2) /100WBC ESR 7 (0-15) MM/HR PT 12.5 (11.1-13.3) SEC INR 1.0 (0.9-1.1) Sodium 140 (135-145) mmol/L Potassium 3.8 (3.3-5.1) mmol/L Chloride 102 (96-108) mmol/L Carbon Dioxide 25 (22-29) mmol/L Anion Gap 17 (12-20) BUN 15 (9-16) mg/dL Creatinine 1.11 (0.5-1.4) mg/dL Estim Creat Clear Calc 62.2 Estimated GFR > 60 Random Glucose 125 H (60-115) mg/dL Lactic Acid 1.1 (0.5-2.0) mmol/L Calcium 9.8 (8.4-10.2) mg/dL Total Bilirubin 0.9 (0.0-1.0) mg/dL Direct Bilirubin 0.3 (0.0-0.5) mg/dL AST 26 (5-37) U/L ALT 22 (0-40) U/L Alkaline Phosphatase 85 (39-117) U/L Troponin I High Sens < 2.7 (<3.5-35.0) ng/L C-Reactive Protein 1.26 H (< or = 0.50) mg/dL Total Protein 8.0 (6.5-8.0) g/dL Albumin 4.7 (3.5-5.0) g/dL COVID-19 (RICKIE) Negative (Negative) COVID-19 Clin Com See Note Influenza Type A (CHAVEZ) Negative (Negative) Influenza Type B (CHAVEZ) Negative (Negative) Influenza A & B Note See Note Radiology Impression Discussion of test interpretation with radiology: I discussed test interpretation with the radiologist Radiologist Impression: EXAMINATION: CT HEAD WITHOUT CONTRAST CLINICAL INFORMATION: Headache COMPARISON: Previous head CT April 2023 TECHNIQUE: Contiguous axial imaging was performed from the skull base to vertex without intravenous administration of contrast. This CT examination was performed using dose optimization techniques as appropriate, variously including the following: *Automated exposure control *Adjustment of mA and/or kV according to patient size (this includes techniques or standardized protocols for targeted exams where dose is matched to indication/reason for exam; i.e. extremities or head) *Use of iterative reconstruction technique DLP: 596 mGy-cm FINDINGS: There is no evidence of acute intracranial hemorrhage or territorial infarction. No abnormal mass effect or midline shift is seen. Lara to white matter differentiation is well preserved. No extra-axial fluid collections are identified. The ventricles are normal in size. There is no abnormal attenuation within the brain parenchyma. The osseous structures and soft tissues are normal. The mastoid air cells and visualized portions of the paranasal sinuses are well aerated. CT/CT head/brain wo IV con IMPRESSION: No acute intracranial pathology Discharge Plan Discharge Clinical Impression: Vomiting, Headache Patient Disposition: Home, Self-Care Instructions: Acute Headache (DC) Additional Instructions: As we discussed, you were seen for a headache, nausea/vomiting, and feeling unwell. Your CT Head was reassuring. Your labs were reassuring. You were treated with IV fluids, pain medication (Tylenol and Toradol), and nausea medication (Zofran and Compazine). Your symptoms improved so you are being discharged to home but should return to the emergency department for any further vomiting, headache, fever, or passing out. Continue to take your antibiotic on a full stomach as it was prescribed by your dentist. Make sure you're drinking lots of water and liquids. Prescriptions: No Action acetaminophen [Tylenol Extra Strength] 500 mg tablet 1,000 mg PO Q6H PRN (Reason: fever or pain) Qty: 20 0RF ibuprofen 400 mg tablet 400 mg PO TID PRN (Reason: fever or pain) Qty: 30 0RF cyclobenzaprine 5 mg tablet 5 mg PO TID PRN (Reason: muscle spasm) Qty: 10 0RF loratadine 10 mg tablet 10 mg PO DAILY diphenhydramine HCl 25 mg tablet 25 mg PO BEDTIME fluoxetine 20 mg capsule 20 mg PO QAM zolpidem 10 mg tablet 10 mg PO BEDTIME PRN gabapentin 100 mg capsule 100 mg PO TID lorazepam 0.5 mg tablet 0.5 mg PO DAILY triamcinolone acetonide 0.1 % ointment 3 topical Q OTHER DAY PRN meclizine 25 mg tablet 25 mg PO TID PRN guaifenesin 100 mg/5 mL liquid 200 mg PO Q4H PRN naproxen 500 mg tablet 500 mg PO BID atorvastatin 20 mg tablet 20 mg PO DAILY Descovy 200-25 mg tablet 1 tab PO DAILY Cerovite Senior 0.4 mg-300 mcg- 250 mcg tablet 1 tab PO DAILY omeprazole 20 mg capsule,delayed release(DR/EC) 20 mg PO DAILY Qty: 30 6RF sennosides [senna] 8.6 mg tablet 17.2 mg PO BEDTIME PRN (Reason: for constipation) Qty: 60 6RF docusate sodium 100 mg capsule 100 mg PO DAILY Qty: 30 6RF Referrals: Name,MD Homero [Primary Care Provider] - 2 days
--- NOTE | 2023-09-10 13:56 | ECG_ITS ---
Test Reason : VOMITING Blood Pressure : / mmHG Vent. Rate : 072 BPM Atrial Rate : 072 BPM P-R Int : 150 ms QRS Dur : 098 ms QT Int : 414 ms P-R-T Axes : 067 075 065 degrees QTc Int : 453 ms Normal sinus rhythm Normal ECG When compared with ECG of 15-JUN-2023 13:04, No significant change was found Referred By: Delia Boyd Electronically Signed By:JASPER HANNON
[2023-09-10 14:07] VITALS: BP 133/97; PULSE 72; RESP 20; TEMP 36.7; O2SAT 96
[2023-09-10] MEDS: Ondansetron ODT 4 MG TAB.RAPDIS TRANSLINGU (14:13)
[2023-09-10 14:28] LABS: MANUAL DIFF FLAG NO
[2023-09-10 14:29] LABS: Basophils Absolute Auto 0.1 X10*3/uL (0.0-0.2); Basophils Percent Auto 0.6 % (0-2); Eosinophils Absolute Auto 0.1 X10*3/uL (0.0-0.4); Eosinophils Percent Auto 0.7 % (0-4); Hematocrit 40.1 % (42.0-52.0); Hemoglobin 13.5 g/dl (14.0-18.0); Imm Gran Abs Auto 0.05 X10*3/uL (0.00-0.03); Imm Gran Pct Auto 0.5 % (0.0-0.4); Lymphocytes Absolute Auto 2.1 X10*3/uL (1.2-4.9); Lymphocytes Percent Auto 19.4 % (20-40); Mean Corpuscular HGB Conc 33.7 g/dl (31.0-36.0); Monocytes Absolute Auto 0.8 X10*3/uL (0.1-1.2); Monocytes Percent Auto 7.4 % (2-11); Neutrophils Absolute Auto 7.8 x10*3/uL (2.0-8.3); Neutrophils Percent Auto 71.4 % (45-73); Platelet Count 229 X10*3/uL (160-400); Red Blood Count 4.83 X10*6/uL (4.60-5.80); White Blood Count 10.9 X10*3/uL (4.8-10.8)
[2023-09-10 14:39] LABS: Prothrombin Time 12.5 SEC (11.1-13.3)
[2023-09-10 14:45] LABS: Alanine Aminotransferase 22 U/L (0-40); Albumin Level 4.7 g/dL (3.5-5.0); Alkaline Phosphatase 85 U/L (39-117); Anion Gap 17 (12-20); Aspartate Amino Transferase 26 U/L (5-37); Bilirubin Direct 0.3 mg/dL (0.0-0.5); Bilirubin Total 0.9 mg/dL (0.0-1.0); Blood Urea Nitrogen 15 mg/dL (9-16); Calcium 9.8 mg/dL (8.4-10.2); Carbon Dioxide 25 mmol/L (22-29); Chloride 102 mmol/L (96-108); Creatinine Clr Calc Pharmacy 62.2; Estimated Glomerular Filt Rate > 60; Glucose Random 125 mg/dL (60-115); Potassium 3.8 mmol/L (3.3-5.1); Sodium 140 mmol/L (135-145)
[2023-09-10 14:46] LABS: COVID-19 Test Negative (Negative); IDNOW Serial# 08D9AD1C; IDNOW Serial# 152EDE1D; Influenza A Negative (Negative); Influenza B2 Negative (Negative)
[2023-09-10 14:58] LABS: Troponin-I High Sensitivity < 2.7 ng/L (<3.5-35.0)
[2023-09-10] MEDS: Ketorolac Tromethamine 15 MG/ML VIAL IVPUSH (15:36)
[2023-09-10] MEDS: 0.9 % Sodium Chloride 1,000 ML 999 ML IV (15:36)
[2023-09-10] MEDS: Acetaminophen 325 MG TABLET 975 MG PO (15:39)
[2023-09-10] MEDS: Prochlorperazine Edisylate 10 MG/2 ML VIAL IVPUSH (15:39)
[2023-09-10 16:05] LABS: C Reactive Protein 1.26 mg/dL (< or = 0.50)
[2023-09-10 16:34] LABS: Erythrocyte Sedimentation Rate 7 MM/HR (0-15)
[2023-09-10 17:32] VITALS: BP 116/78; PULSE 84; RESP 16; TEMP 36.8; O2SAT 94
[2023-09-10 18:03] LABS: Lactic Acid 1.1 mmol/L (0.5-2.0)
[2023-09-10 19:26] VITALS: BP 127/94; PULSE 94; RESP 15; TEMP 36.8; O2SAT 96
== END 2023-09-10 19:49 | disposition home or self-care (01) ==
PROVIDERS: Nurse Practitioner Family; Emergency Provider Emergency Medicine; PCP Internal Medicine Geriatric Medicine
DX: R51.9 Headache, unspecified (principal); R42 Dizziness and giddiness; R11.2 Nausea with vomiting, unspecified; Z11.52 Encounter for screening for COVID-19
CPT/HCPCS: 36415; 70450; 80048; 80076; 83605; 84484; 85025; 85610; 85652; 86140; 87040; 87502; 87635; 93005; 96361; 96374; 96375; 99284; 99285; J0737; J1885

== ENCOUNTER → 2023-09-10 13:56 | Outpatient (BNV) | payer OTHER, SELFPAY | PROVIDERS: Emergency Provider Emergency Medicine; PCP Internal Medicine Geriatric Medicine; Visit Provider Internal Medicine | DX: R42 Dizziness and giddiness (principal); R51.9 Headache, unspecified | CPT/HCPCS: 93010 ==

== ENCOUNTER 2023-09-11 16:22 | Emergency (ER) | payer OTHER, SELFPAY ==
[2023-09-11 16:31] VITALS: BP 144/58; PULSE 90; O2SAT 96
[2023-09-11 17:28] VITALS: BP 144/97; PULSE 73; RESP 18; TEMP 37.1; O2SAT 96; BMI 26.7
--- NOTE | 2023-09-11 17:28 | ED_ITS ---
HPI - Headache General Chief Complaint: Headache Stated Complaint: MIGRAINE NAUSEA Source: patient Mode of arrival: ambulatory Limitations: no limitations History of Present Illness HPI Narrative: 57 year old male with pmhx significant for MARCO ANTONIO, insomnia, GERD, allergic rhinitis, migraines, and mild intellectual disabilities presents to the ED today for evaluation of migraine since 1200 today. Reports taking 500 mg tylenol and sumatriptan without relief. Admits to frontal migraine with associated nausea without vomiting. No radiation of pain. No exacerbating or relieving factors. Admits this feels similar to his typical migraines however is lasting longer than usual. Denies worst BENNETT of life. Denies trauma/injury to head. Denies dizziness, scalp tenderness, ear pain or hearing changes, eye pain, photophobia, vision changes, jaw claudication, neck pain. Related Data Home Medications Medication Instructions Recorded Confirmed diphenhydramine HCl 25 mg tablet 25 mg PO BEDTIME 12/22/20 fluoxetine 20 mg capsule 20 mg PO QAM 12/22/20 gabapentin 100 mg capsule 100 mg PO TID 12/22/20 guaifenesin 100 mg/5 mL oral liquid 200 mg PO Q4H PRN 12/22/20 loratadine 10 mg tablet 10 mg PO DAILY 12/22/20 lorazepam 0.5 mg tablet 0.5 mg PO DAILY 12/22/20 meclizine 25 mg tablet 25 mg PO TID PRN 12/22/20 naproxen 500 mg tablet 500 mg PO BID 12/22/20 triamcinolone acetonide 0.1 % 3 topical Q OTHER DAY PRN 12/22/20 topical ointment zolpidem 10 mg tablet 10 mg PO BEDTIME PRN 12/22/20 atorvastatin 20 mg tablet 20 mg PO DAILY 08/15/22 emtricitabine 200 mg-tenofovir 1 tab PO DAILY 08/15/22 alafenamide fumarate 25 mg tablet (Descovy) rvuirhye-gls-cqzya acid 0.4 1 tab PO DAILY 08/16/23 mg-lycopene 300 mcg-lutein 250 mcg tablet (Cerovite Senior) Previous Rx's Medication Instructions Recorded docusate sodium 100 mg capsule 100 mg PO DAILY #30 caps 02/13/23 omeprazole 20 mg capsule,delayed 20 mg PO DAILY #30 caps 02/13/23 release sennosides 8.6 mg tablet (senna) 17.2 mg (2 x 8.6 mg) PO BEDTIME 02/13/23 PRN for constipation #60 tabs cyclobenzaprine 5 mg tablet 5 mg PO TID PRN muscle spasm #10 06/15/23 tabs acetaminophen 500 mg tablet 1,000 mg (2 x 500 mg) PO Q6H PRN 08/04/23 (Tylenol Extra Strength) fever or pain #20 tabs ibuprofen 400 mg tablet 400 mg PO TID PRN fever or pain 08/04/23 #30 tabs Allergies Allergy/AdvReac Type Severity Reaction Status Date / Time No Known Allergies Allergy Verified 09/11/23 17:28 [No Known Allergies*] Review of Systems 2 Review of Systems: Constitutional: No fever, chills, fatigue, night sweats, weight changes ENT/Mouth: No ear pain, hearing loss, nasal congestion, sinus pain, rhinorrhea, sore throat Eyes: No eye pain, swelling, redness, vision changes, discharge Cardio: No chest pain, palpitations, [place], orthopnea, peripheral edema Pulm: No SOB, cough, sputum, wheezing, dyspnea, hemoptysis GI: No nausea, vomiting, hematemesis, abdominal pain, diarrhea, constipation, hematochezia, melena : No irregular bleeding, dysuria, frequency, urgency, hesitancy, hematuria, flank pain, urinary flow changes, urinary incontinence or retention MSK: No back pain, neck pain, joint pain, myalgias Skin: No lesions, rashes Neuro: No weakness, numbness, paresthesias, LOC, dizziness, +headache All other systems reviewed and are negative. [facility] Past Medical History Attestation statement: The following information was validated with the patient. Source: old records reviewed and nursing notes reviewed Medical History Depression Surgical History History of esophagogastroduodenoscopy Hx of colonoscopy Family History Family History Father No problems noted. Mother No problems noted. Sister Liver cancer Brother Cancer Social History Social History Household Members: None Housing: Apartment Alcohol intake: former Years Smoked: 5 Substance Use Type: Marijuana Advance Directives: No Advance Directives Information Provided: No Physical Exam 2 Vital Signs: Vital Signs: Last Vital Signs Temp 98.7 F 09/11/23 17:28 Pulse 73 09/11/23 17:28 Resp 18 09/11/23 17:28 BP 144/97 H 09/11/23 17:28 Pulse Ox 96 09/11/23 17:28 O2 Del Method Room Air 09/11/23 17:28 BMI result Body Mass Index 26.7 Hypertensive, vitals otherwise wnl. Const: General: cooperative, healthy appearing, comfortable and no acute distress Orientation/consciousness: patient oriented x3 Limitations: no limitations HEENT: Head: Yes normal to inspection, Yes normocephalic, Yes atraumatic, No scalp tenderness and No Temporal artery tenderness present Head images: 1. headache Ears: hearing grossly normal bilaterally, external ears normal, TM's normal bilaterally, TM normal on the left, EAC's normal, mastoids normal and no periauricular adenopathy Face and sinus: Yes normal facial exam and Yes sinuses nontender Eyes: General: appearance normal, both eyes and all related structures C onjunctivae: conjunctivae normal Sclerae: sclerae normal Pupils: Equal, round and reactive pupils present EOM: EOMs intact bilaterally Direct Ophthalmoscopy: normal light reflex, no photophobia, no papilledema and fundi normal bilaterally Neck: Other: + no cervical paraspinal mm tenderness Neck: Yes normal visual inspection, Yes full ROM and Yes no meningeal signs Resp: Effort & Inspection: normal respiratory effort Auscultation: clear to auscultation bilaterally Cardio: Rate: regular rate Rhythm: regular rhythm Back/Spine/Pelvis: Other: No midline spinous tenderness or step off deformity Skin: General skin exam: no rashes or lesions noted Neuro: General: patient oriented x3, gait normal and no meningeal signs C ranial nerves: Yes Equal, round and reactive pupils present and Yes Nystagmus not present Gait exam (Neuro): Normal gait present Motor exam (neuro): 5/5 motor strength present throughout and Pronator motor function not present C oordination: [id number]-[id number] test normal and Normal rapid alternating movements of the distal upper extremity present (Neuro) Pupils: Normal pupillary reactivity/response: bilateral Course Course Course Narrative: RME:?57 yo male here, hx gerd, MARCO ANTONIO, insomnia here for eval of migraine that began at 1200 today. migraine located frontally with assoc nausea without vomiting. admits this feels like his typical migraine, however it's not going away. Reports taking Tylenol and Sumatriptan without relief. denies vision changes. zofran ordered in triage. Full HPI, ROS and PE to be performed by the primary ED provider. Reevaluation(s) Reevaluation #1: Patient left before myself or any of the other clinicians could review or explain physical exam findings, test results, need or lack there of for additional testing, treatment options, or a treatment plan. Medications Administered Discontinued Medications Generic Name Dose Route Start Last Admin Trade Name Freq PRN Reason Stop Dose Admin Ondansetron HCl 4 mg 09/11/23 17:28 09/11/23 17:32 Ondansetron Odt 4 Mg Tab.Rapdis TRANSLINGU 09/11/23 17:29 4 mg ONCE ONE Administration Medical Decision Making Medical Decision Making [facility] Narrative: 57 year old male with pmhx significant for MARCO ANTONIO, insomnia, GERD, allergic rhinitis, migraines, and mild intellectual disabilities presents to the ED today for evaluation of migraine since 1200 today. Patient slightly hypertensive to 144/97 however this seems to be around patient's baseline when compared to priors. Vitals otherwise wnl. Patient is nontoxic appearing and in NAD. No scalp tenderness or palpable temporal artery. PERRLA. No papilledema. Exam nonfocal. Cerebellum intact. Ambulating with steady gait. Clinical concern for headache, migraine, complex migraine. Lower suspicion for dehydration, electrolyte abnormality, anemia. Unlikely hypertensive urgency/ emergency, meningitis, encephalitis, ICH, CVA/TIA, dissection, cerebellar stroke, GCA, trigeminal neuralgia. Differential Diagnosis Differential Diagnoses: The differential diagnosis associated with the presentation includes as above. Admission/Observation not indicated. External Record Review External record reviewed: Inpatient record, Office record, Outpatient record, Prior outpatient labs, Prior outpatient radiology, Primary care record and Outside ED record Tests considered The following testing was considered but not selected: I considered obtaining CT head however no red flag symptoms and feels like his typical, not warranted. Prescription Management I considered prescription management with: Pain Medication and Other (antiemetic) Chronic Conditions Patient?s care impacted by: Other (migraines) Discharge Plan Discharge Clinical Impression: Migraine Patient Disposition: Left W/O Completing Treatment Prescriptions: No Action acetaminophen [Tylenol Extra Strength] 500 mg tablet 1,000 mg PO Q6H PRN (Reason: fever or pain) Qty: 20 0RF ibuprofen 400 mg tablet 400 mg PO TID PRN (Reason: fever or pain) Qty: 30 0RF cyclobenzaprine 5 mg tablet 5 mg PO TID PRN (Reason: muscle spasm) Qty: 10 0RF loratadine 10 mg tablet 10 mg PO DAILY diphenhydramine HCl 25 mg tablet 25 mg PO BEDTIME fluoxetine 20 mg capsule 20 mg PO QAM zolpidem 10 mg tablet 10 mg PO BEDTIME PRN gabapentin 100 mg capsule 100 mg PO TID lorazepam 0.5 mg tablet 0.5 mg PO DAILY triamcinolone acetonide 0.1 % ointment 3 topical Q OTHER DAY PRN meclizine 25 mg tablet 25 mg PO TID PRN guaifenesin 100 mg/5 mL liquid 200 mg PO Q4H PRN naproxen 500 mg tablet 500 mg PO BID atorvastatin 20 mg tablet 20 mg PO DAILY Descovy 200-25 mg tablet 1 tab PO DAILY Cerovite Senior 0.4 mg-300 mcg- 250 mcg tablet 1 tab PO DAILY omeprazole 20 mg capsule,delayed release(DR/EC) 20 mg PO DAILY Qty: 30 6RF sennosides [senna] 8.6 mg tablet 17.2 mg PO BEDTIME PRN (Reason: for constipation) Qty: 60 6RF docusate sodium 100 mg capsule 100 mg PO DAILY Qty: 30 6RF Discharge Date/Time: 09/12/23 00:39
[2023-09-11] MEDS: Ondansetron ODT 4 MG TAB.RAPDIS TRANSLINGU (17:32)
== END 2023-09-12 00:39 | disposition left against medical advice (07) ==
LOC: HO.ED 09-12 00:20
PROVIDERS: Emergency Provider Emergency Medicine
DX: G43.909 Migraine, unspecified, not intractable, without status migrainosus (principal); R11.0 Nausea; Z79.899 Other long term (current) drug therapy
CPT/HCPCS: 99281; 99283

== ENCOUNTER 2024-03-17 14:08 | Outpatient (REF) | payer OTHER, SELFPAY ==
[2024-03-17 17:04] LABS: Prostate Specific Antigen 2.07 ng/mL (<0.05-4.0)
== END 2024-03-17 14:09 | disposition home or self-care (01) ==
LOC: HO.HHCL 14:08
PROVIDERS: Visit Provider Internal Medicine Geriatric Medicine
DX: Z12.5 Encounter for screening for malignant neoplasm of prostate (principal)
CPT/HCPCS: 36415; 84153

== ENCOUNTER 2024-09-14 11:10 | Emergency (ER) | payer OTHER, SELFPAY ==
[2024-09-14 12:07] VITALS: BP 131/83; PULSE 82; RESP 20; TEMP 37.5; O2SAT 98; BMI 26.8
--- NOTE | 2024-09-14 12:09 | ED_ITS ---
HPI - General Adult General Chief complaint: Upper Respiratory Symptoms Stated complaint: sore throat Time Seen by Provider: 09/14/24 20:49 Source: patient Limitations: no limitations History of Present Illness ED Provider: Cristin Oscar PA-C HPI narrative: 58-year-old male with a history of intellectual disability sleep apnea, GERD, constipation presents with cough and cold symptoms x1 day. Associated sore t hroat, cough, nasal congestion. Patient states his partner is sick with the same symptoms. No fever. Related Data Home Medications ?Medication ?Instructions ?Recorded ?Confirmed diphenhydramine HCl 25 mg tablet 25 mg PO BEDTIME 12/22/20 fluoxetine 20 mg capsule 20 mg PO QAM 12/22/20 gabapentin 100 mg capsule 100 mg PO TID 12/22/20 guaifenesin 100 mg/5 mL oral liquid 200 mg PO Q4H PRN 12/22/20 loratadine 10 mg tablet 10 mg PO DAILY 12/22/20 lorazepam 0.5 mg tablet 0.5 mg PO DAILY 12/22/20 meclizine 25 mg tablet 25 mg PO TID PRN 12/22/20 naproxen 500 mg tablet 500 mg PO BID 12/22/20 triamcinolone acetonide 0.1 % 3 topical Q OTHER DAY PRN 12/22/20 topical ointment zolpidem 10 mg tablet 10 mg PO BEDTIME PRN 12/22/20 atorvastatin 20 mg tablet 20 mg PO DAILY 08/15/22 emtricitabine 200 mg-tenofovir 1 tab PO DAILY 08/15/22 alafenamide fumarate 25 mg tablet (Descovy) [id number] acid 0.4 1 tab PO DAILY 08/16/23 mg-lycopene 300 mcg-lutein 250 mcg tablet (Cerovite Senior) Previous Rx's ?Medication ?Instructions ?Recorded cyclobenzaprine 5 mg tablet 5 mg PO TID PRN muscle spasm #10 06/15/23 tabs acetaminophen 500 mg tablet 1,000 mg (2 x 500 mg) PO Q6H PRN 08/04/23 (Tylenol Extra Strength) fever or pain #20 tabs ibuprofen 400 mg tablet 400 mg PO TID PRN fever or pain 08/04/23 #30 tabs docusate sodium 100 mg capsule 100 mg PO QAM #30 caps 05/13/24 (Stool Softener) omeprazole 20 mg capsule,delayed 20 mg PO QAM #30 caps 05/13/24 release sennosides 8.6 mg tablet (senna) 17.2 mg (2 x 8.6 mg) PO BEDTIME 05/13/24 PRN for constipation #60 tabs Allergies Allergy/AdvReac Type Severity Reaction Status Date / Time No Known Allergies Allergy Verified 09/14/24 12:10 [No Known Allergies*] Review of Systems Review of Systems: Yes all other systems are reviewed and are negative Constitutional: Constitutional: Denies fatigue and Denies fever(s) ENT: Reports nasal congestion, Reports nasal discharge and Reports sore throat Cardiovascular: Cardiovascular: Denies chest pain and Denies dyspnea Respiratory: Respiratory: Reports cough and Denies dyspnea Endocrine: Endocrine: Denies fatigue [facility] Past Medical History Attestation statement: The following information was validated with the patient. Medical History Depression Surgical History History of esophagogastroduodenoscopy Hx of colonoscopy Family History Family History Father No problems noted. Mother No problems noted. Sister Liver cancer Brother Cancer Social History Social History Household Members: None Housing: Apartment Alcohol intake: former Years Smoked: 5 Smoked in Last 30 Days: No Use of substances other than those prescribed or required for medical reasons: No Substance Use Type: Marijuana Advance Directives: No Advance Directives Information Provided: No Do you have a plan to hurt others: No Plan Physical Exam ED Vital Signs: Vital Signs - 24 hr 09/14/24 12:07 09/14/24 20:51 09/14/24 20:52 Temperature 99.5 F 97 F Pulse Rate 82 77 Respiratory Rate 20 16 Blood Pressure 131/83 134/92 H Pulse Oximetry 98 97 99 Oxygen Delivery Method Room Air Room Air Room Air BMI result Body Mass Index 26.8 Const Other: Alert well-appearing Orientation/consciousness: patient oriented x3 HENMT Other: Oropharynx is mildly erythematous, no overlying exudate, uvula midline, no sublingual fluctuance, no swelling inferior to the jawline no trismus no drooling Resp Effort & Inspection: normal respiratory effort Cardio Other: Normal peripheral perfusion Skin Other: Warm dry no rash Neuro General: patient oriented x3, gait normal, no focal motor deficits and CN's II- XI intact bilaterally Psych Other: Cooperative Course Course Course Narrative: RME, this is a rapid medical exam performed by Kurtis Campos please refer to primary provider for complete H&P- 58-year-old male presents for evaluation of sore throat, cough. Plan for viral swabs Medical Decision Making Medical Decision Making [facility] Narrative: 58-year-old male with a history of intellectual disability sleep apnea, GERD, constipation presents with cough and cold symptoms x1 day. Associated sore throat, cough, nasal congestion. Patient states his partner is sick with the same symptoms. No fever. No relevant chronic issues History: Per patient I have considered the following differential diagnoses: Viral syndrome, strep pharyngitis, RPA, TANKAGE GRINDER OPERATOR Plan: Viral panel and a strep screen were obtained from triage both negative. The patient has no evidence of either RPA or TANKAGE GRINDER OPERATOR on exam. We will send With the care instructions. I have independently reviewed the following tests: Labs: Viral panel negative strep screen negative Lab Data Labs: Lab Results 09/14/24 09/14/24 Range/Units 13:47 19:36 Influenza Type A (PCR) NEGATIVE (Negative) Influenza Type B (PCR) NEGATIVE (Negative) RSV RNA Qual (PCR) NEGATIVE (Negative) SARS-CoV-2 RNA (RT-PCR) NEGATIVE (Negative) S. pyogenes GrpA CHAVEZ Negative (Negative) Discharge Plan Discharge Clinical Impression: Pharyngitis Patient Disposition: Home, Self-Care Instructions: Pharyngitis (ED) Additional Instructions: The viral panel was negative you were screened for influenza a and B, RSV and COVID. You were also screened for strep throat. That was negative as well. See home care instructions. You can use warm saltwater gargles to help your pain. You could also use eyja-mne-kbemwii ibuprofen 600 mg taken every 6 hours with food. Follow up with your primary care provider as needed. Prescriptions: No Action docusate sodium [Stool Softener] 100 mg capsule 100 mg PO QAM Qty: 30 6RF sennosides [senna] 8.6 mg tablet 17.2 mg PO BEDTIME PRN (Reason: for constipation) Qty: 60 6RF omeprazole 20 mg capsule,delayed release(DR/EC) 20 mg PO QAM Qty: 30 6RF acetaminophen [Tylenol Extra Strength] 500 mg tablet 1,000 mg PO Q6H PRN (Reason: fever or pain) Qty: 20 0RF ibuprofen 400 mg tablet 400 mg PO TID PRN (Reason: fever or pain) Qty: 30 0RF cyclobenzaprine 5 mg tablet 5 mg PO TID PRN (Reason: muscle spasm) Qty: 10 0RF loratadine 10 mg tablet 10 mg PO DAILY diphenhydramine HCl 25 mg tablet 25 mg PO BEDTIME fluoxetine 20 mg capsule 20 mg PO QAM zolpidem 10 mg tablet 10 mg PO BEDTIME PRN gabapentin 100 mg capsule 100 mg PO TID lorazepam 0.5 mg tablet 0.5 mg PO DAILY triamcinolone acetonide 0.1 % ointment 3 topical Q OTHER DAY PRN meclizine 25 mg tablet 25 mg PO TID PRN guaifenesin 100 mg/5 mL liquid 200 mg PO Q4H PRN naproxen 500 mg tablet 500 mg PO BID atorvastatin 20 mg tablet 20 mg PO DAILY Descovy 200-25 mg tablet 1 tab PO DAILY Cerovite Senior 0.4 mg-300 mcg- 250 mcg tablet 1 tab PO DAILY Print Language: Romanian
[2024-09-14 14:58] LABS: Influenza A PCR NEGATIVE (Negative); Influenza B PCR NEGATIVE (Negative); Resp Syncy Virus RNA Qual PCR NEGATIVE (Negative); SARS COV2 PCR INHOUSE NEGATIVE (Negative)
[2024-09-14 19:54] LABS: IDNOW Serial# 08D9AD1C; Strep A Nucleic Acid Negative (Negative)
[2024-09-14 20:51] VITALS: BP 134/92; PULSE 77; RESP 16; TEMP 36.1; O2SAT 97
--- NOTE | 2024-09-14 20:51 | PC.NURSE ---
sore throat, runny nose, cough since saturday. denies n/v/d.
[2024-09-14 20:52] VITALS: O2SAT 99
[2024-09-14 21:49] VITALS: BP 134/72; PULSE 77; RESP 16; TEMP 36.1; O2SAT 99
== END 2024-09-14 21:50 | disposition home or self-care (01) ==
PROVIDERS: Physician Assistant; Emergency Provider Emergency Medicine; PCP Internal Medicine Geriatric Medicine
DX: J02.9 Acute pharyngitis, unspecified (principal); R05.9 Cough, unspecified; R09.81 Nasal congestion; Z79.899 Other long term (current) drug therapy; Z03.818 Encounter for observation for suspected exposure to other biological agents ruled out
CPT/HCPCS: 0241U; 87651; 99283; 99284

== ENCOUNTER 2024-11-13 09:32 | Outpatient (REF) | payer OTHER, SELFPAY ==
[2024-11-13 12:18] LABS: Alanine Aminotransferase 36 U/L (0-40); Albumin Level 4.4 g/dL (3.5-5.0); Alkaline Phosphatase 78 U/L (39-117); Anion Gap 10 (12-20); Aspartate Amino Transferase 32 U/L (5-37); Bilirubin Total 0.4 mg/dL (0.0-1.0); Blood Urea Nitrogen 11 mg/dL (9-16); Carbon Dioxide 28 mmol/L (22-29); Chloride 107 mmol/L (96-108); Cholesterol 159 mg/dL (<200); Estimated Glomerular Filt Rate > 60; Glucose Random 88 mg/dL (60-115); HDL Cholesterol 55 mg/dL (>40); LDL Cholesterol Calculated 83 mg/dL (<100); Potassium 4.2 mmol/L (3.3-5.1); Sodium 141 mmol/L (135-145); Total Protein 7.3 g/dL (6.5-8.0); Triglycerides 108 mg/dL (<150)
== END 2024-11-13 09:33 | disposition home or self-care (01) ==
LOC: HO.HHCL 09:32
PROVIDERS: Visit Provider Internal Medicine Geriatric Medicine
DX: E78.00 Pure hypercholesterolemia, unspecified (principal); Z79.899 Other long term (current) drug therapy
CPT/HCPCS: 36415; 80053; 80061

== ENCOUNTER 2024-12-21 09:54 | Outpatient (REF) | payer OTHER, SELFPAY ==
--- NOTE | ~2024-12-21 | XR_ITS ---
EXAMINATION: XR CHEST CLINICAL INFORMATION: SOB COMPARISON: 06/15/2023. TECHNIQUE: 2 views of the chest were obtained. FINDINGS: The cardiac, hilar, and mediastinal contours are normal. The lungs are somewhat hyperaerated, however clear bilaterally. There is no pneumothorax or pleural effusion. There is no focal osseous or soft tissue abnormality. There are degenerative changes in the spine. XR/XR chest 2V IMPRESSION: Findings suggesting COPD. No active superimposed disease. Electronically signed by: David Vann MD 12/21/2024 10:09 AM EDT RP
--- OUTSIDE RECORDS SUMMARY | 2024-12-21 10:14 | XMS_ITS | Encounter Summary ---
Author Organization [employer] Address [address] [place] [address] Care Team Providers Care Magnetic Prospector Name Role Phone Name, Homero GUILLAUME Primary Care Provider [phone] Encounter Details Date Type Department Care Team (Latest Contact Info) Description 05/04/2021 Abstract C CONVERSIONS Dental, Provider, DDS Social History Tobacco Use Types Packs/Day Years Used Date Smoking Tobacco: Never Assessed Sex and Gender Information Value Date Recorded Sex Assigned at Male 06/04/2022 10:16 AM EDT Legal Sex Male 10:16 AM EDT Gender Identity Male 06/04/2022 10:16 AM EDT Sexual Orientation Lesbian or [place] 06/04/2022 10 :16 AM EDT documented as of this encounter Plan of Treatment Not on file documented as of this encounter Visit Diagnoses Not on filedocumented in this encounter Care Teams Magnetic Prospector Relationship Specialty Start Date End Date Name, MD Homero [address] [place] [id number] PCP - General Family Medicine 03/25/17 documented as of this encounter
--- OUTSIDE RECORDS SUMMARY | 2024-12-21 10:14 | XMS_ITS | Clinical Summary ---
Author Organization [employer] Address [address] [place] [address] Care Team Providers Care Sandstone Splitter Name Role Phone Name, Homero GUILLAUME Primary Care Provider [phone] Allergies No known active allergies Medications FLUoxetine (PROzac) 20 MG capsule TAKE 1 CAPSULE BY MOUTH EVERY MORNING 08/03/20 22 Active gabapentin (Neurontin) 100 MG capsule TAKE 1 CAPSULE BY MOUTH THREE TIMES DAILY IN THE MORNING, EVENING, AND BEDTIME 08/04/20 22 Active LORazepam (Ativan) 0.5 MG tablet TAKE 1 TABLET BY MOUTH ONCE DAILY 08/07/19 23 Active omeprazole (PriLOSEC) [address] capsule TAKE 1 CAPSULE BY MOUTH EVERY DAY 08/03/20 22 Active senna (Senokot) 8.6 MG tablet TAKE 2 TABLETS BY MOUTH EVERY DAY AT BEDTIME NEEDED FOR CONSTIPATION 08/03/20 22 Active zolpidem (Ambien) 10 MG tablet TAKE 1 TABLET BY MOUTH AT BEDTIME 08/07/19 23 Active docusate sodium (Colace) 100 MG capsuleIndicati ons:Constipatio n, unspecified constipation type TAKE 1 CAPSULE BY MOUTH TWICE DAILY IN THE MORNING AND AT BEDTIME NEEDED 180 capsule 1 12/11/19 23 Active Clotrimazole Anti-Fungal 1 % cream APPLY TO AFFECTED AREA(S) AND SURROUNDING AREA(S) TWICE DAILY IN THE MORNING AND EVENING 45 g 3 03/21/20 23 Active magic mouthwash (lidocaine, diphenhydrAMINE , Maalox 1:1:1) Swish and spit 15 mL every 4 (four) hours if needed for stomatitis. Rinse and spit PRN 1 each 11/01/19 24 Active riboflavin (Vitamin B-2) 400 MG tablet TAKE 1 TABLET BY MOUTH EVERY MORNING 30 tablet 11 02/12/20 24 Active Diclofenac Sodium 1 % gel APPLY 2 GRAMS TO AFFECTED AREA(S) ONCE DAILY 100 g 3 07/07/20 24 Active Multiple Vitamins-Minera ls (CertaVite Senior/Antioxid ant) tabletIndicatio ns:Constipation , unspecified constipation type TAKE 1 TABLET BY MOUTH EVERY MORNING 90 tablet 3 07/13/20 24 Active Ailyn-Dryl 25 MG tabletIndicatio ns:Seasonal allergic rhinitis, unspecified trigger TAKE 1 TABLET BY MOUTH AT BEDTIME 30 tablet 5 10/09/19 25 Active fluticasone (Flonase) 50 MCG/ACT nasal sprayIndication s:Seasonal allergic rhinitis, unspecified trigger INSTILL 1 SPRAY IN EACH NOSTRIL ONCE DAILY 16 g 2 11/10/19 25 Active clotrimazole-be tamethasone (Lotrisone) cream APPLY TOPICALLY TWICE DAILY FOR 28 DAYS 45 g 2 11/11/19 25 Active Acetaminophen Extra Strength 500 MG tabletIndicatio ns:Chronic low back pain without sciatica, unspecified back pain laterality TAKE 1 TABLETS BY MOUTH EVERY 8 HOURS NEEDED FOR MODERATE PAIN OR FEVER 90 tablet 2 11/13/19 25 Active SUMAtriptan (Imitrex) 25 MG tablet TAKE 1 TABLET BY MOUTH AT ONSET OF MIGRAINE. MAY REPEAT ONCE AFTER 2 HOURS IF NEEDED 9 tablet 3 11/20/19 25 Active atorvastatin (Lipitor) 20 MG tablet TAKE 1 TABLET BY MOUTH EVERY EVENING 90 tablet 1 12/09/19 25 Active loratadine (Claritin) 10 MG tablet TAKE 1 TABLET BY MOUTH EVERY DAY 30 tablet 5 12/12/19 25 Active celecoxib (CeleBREX) 200 MG capsuleIndicati ons:Costochondr itis, acute Take 1 capsule (200 mg) by mouth 2 times daily. 60 capsule 12/22/19 25 2024 Active loratadine (Claritin) 10 MG tablet TAKE 1 TABLET BY MOUTH EVERY DAY 30 tablet 5 05/13/20 24 2024 Discontinued atorvastatin (Lipitor) 20 MG tablet TAKE 1 TABLET BY MOUTH EVERY EVENING 90 tablet 1 06/11/20 24 2024 Discontinued Active Problems Problem Noted Date Diagnosed Date Advanced periodontitis 05/21/2024 Missing teeth, acquired 05/21/2024 Dental calculus 04/03/2024 Localized gingival recession 04/03/2024 Chronic idiopathic constipation 11/08/2023 GERD (gastroesophageal reflux disease) Mild intellectual disabilities 11/08/2023 Vasovagal syncope 11/08/2023 MARCO ANTONIO (obstructive sleep apnea) 11/08/2023 Allergic rhinitis 11/08/2023 Dental abscess 08/15/2023 Migraine without status migrainosus, not intract able 02/11/2023 Overview (02/11/2023): Daily Riboflavin for prevention. PRN imitrex at the onset of the headaches. Call if symptoms persist or worse Chronic low back pain 08/23/2022 Seasonal allergic rhinitis 08/23/2022 Posttraumatic stress disorder 03/11/2012 Resolved Problems Problem Noted Date Diagnosed Date Resolved Date Gingival bleeding 05/21/2024 11/12/2024 Oral candidiasis 12/06/2023 03/17/2024 Acute viral syndrome 11/08/2023 024 Anxiety 11/08/2023 11/12/2024 Atypical chest pain 11/08/2023 11/13/19 25 Back pain 11/08/2023 11/12/2024 Cellulitis 11/08/2023 03/17/2024 Headache 11/08/2023 11/12/2024 Insomnia 11/08/2023 11/12/2024 Muscle strain of right upper back 11/08/2023 03/17/2024 Myalgia 11/08/2023 03/17/2024 Vomiting 11/08/2023 11/12/2024 Elevated blood pressure reading 10/17/2023 03/17/2024 Assessment & Plan (10/17/2023 6:17 AM EDT): BP here noted to be elevated for diastolic -rechecked manually -RA 138/100, la 130/100 -EKG today NSR ,HR 71, Qtc 415, no ischemic findings -will hold today on starting meds but advised pt to bring home BP readings at next apt w PCP -if ongoing elevated BP will need to start BP meds -alarm signs and symptoms discussed today -has Apt already w PCP 11/10 -avoid coffe,decrease salt, weight loss advised -noted mild CPR elevated in ED possible in setting of dental problem ? -to f w PCP Acute bilateral low back luisa n without sciatica 11/23/2022 11/12/2024 Assessment & Plan (11/23/2022 11:19 AM EDT): Apply heat on affected area Acetaminophen PRN cyclobenzaprine 5mg Q 8hrs I nurses' association counselor patient about medication side effects which include somnolence, I advise not to drive or do activities that require his concentration while he is taking flexeril RTC if symptoms persist or worse Muscle spasm of left calf 11/23/2022 Assessment & Plan (11/23/2022 11:21 AM EDT): Clinical picture consistent with muscle spasm, DVT is very unlikely no risk factors at all Refer to back pain plan Seasonal allergic reaction 08/23/2022 0 11/12/2024 Obstructive sleep apnea syndrome 10/14/2018 11/12/2024 Drowsy 07/22/2018 10/09/2022 Snoring 07/22/2018 10/09/2022 Acute low back pain 02/07/2018 10/10/19 Tobacco dependence syndrome 06/23/2015 10/09/2022 Encounters Date Type Department Care Team Description 12/21/2024 9:20 AM EDT Office Visit [facility] [address] [place] [address] SOB (shortness of breath) (Primary Dx); Costochondritis, acute 12/21/2024 Travel 12/11/2024 Refill [facility] [address] [place] [address] Name, MD Homero 12/07/2024 Refill [facility] [address] [place] [address] NameHomero MD 11/20/2024 Telephone [facility] [address] [place] [address] Name, MD Homero Durable Medical Equipment 11/19/2024 Refill [facility] [address] [place] [address] Name, MD Homero 11/12/2024 9:45 AM EDT Office Visit [facility] [address] [place] [phone] Name, MD Homero High cholesterol (Primary Dx); MARCO ANTONIO (obstructive sleep apnea); Chronic low back pain without sciatica, unspecified back pain laterality; Encounter for immunization 11/12/2024 Travel 11/09/2024 Refill [facility] [address] [place] [phone] Homero Sosa MD 11/07/2024 Refill [facility] [address] [place] [phone] NameHomero MD Seasonal allergic rhinitis, unspecified trigger 10/23/2024 Telephone [facility] [address] [place] [phone] NameHomero MD Durable Medical Equipment 10/08/2024 Refill [facility] [address] [place] [phone] NameHomero MD Seasonal allergic rhinitis, unspecified trigger 09/29/2024 Refill [facility] [address] [place] [phone] Colton Hayward MD 09/23/2024 4:20 PM EST Office Visit [facility] [address] [place] [phone] Colton Hayward MD Influenza-like symptoms (Primary Dx); Elevated blood pressure reading in office without diagnosis of hypertension; Nasal congestion; Sore throat from Last 3 Months Immunizations Immunization Administration Dates Next Due Hep B, adult 01/20/2001,08/20/2000,07/19/2000 Influenza injectable quadriv alent IIV4 with preservative 05/21/2018,06/19/2017,05/01/2016 Influenza injectable quadriv alent preservative free 06/17/2023,04/24/2022,05/03/2021,2019,05/22/2019,10/11/2015 Influenza, IIV3, injectable 08/17/2014 Influenza, Split (incl. berna fied surface antigen) 07/30/2013,07/16/2012 Influenza, seasonal, injecta ble, preservative free 08/14/2024 MMR 01/02/2012,05/16/2000 Moderna Covid-19 Vaccine 12+ 08/25/2021,01/21/20 21 Pfizer Covid-19 Vaccine + 08/21/2024 Pneumococcal Conjugate PCV 20 11/12/2024 TD (adult), 2 Lf tetanus tox oid, preservative free, adsorbed 10/14/2008 Tdap 12/31/2019,07/30/2013 Zoster, Recombinant 08/14/2021,06/12/2021 Social History Tobacco Use Types Packs/Day Years Used Date Smoking Tobacco: Former Cigarettes Q uit: 2018 Passive Smoke Exposure: Past Smokeless Tobacco: Never Tobacco Cessation:Counseling Given: Not Answered Alcohol Use Standard Drinks/Week Comments Not Currently 0 (1 standard drink = 0.6 oz pur e alcohol) Depression Answer Date Recorded Patient Health Questionnaire-9 Score 0 03/17/2024 Patient Health Questionnaire-9 Score 0 03/17/2024 Last PHQ-9: Questionnaire Data Not on file 0 03/17/2024 Housing Stability Answer Date Recorded What is your housing situation today? I have darryl stiles 03/17/[address] you li ve. Do you have problems with any of the following? None of the above 03/17/2024 Food Insecurity Answer Date Recorded Within the past 12 months, y ou worried that your food would run out before you got money to buy more: Sometimes True 2023 Within the past 12 months,th e food you bought just didn't last and you didn't have enough money to get more: Sometimes True 03/17/2024 Transportation Answer Date Recorded In the past 12 months, has l ack of transportation kept you from medical appts, meetings, work or from getting things needed for daily living? No 03/17/2024 Utilities Answer Date Recorded In the past 12 months, has t he electric, gas, oil or water company threatened to shut off services in your home? No 03/17/2024 Depression Answer Date Recorded Patient Health Questionnaire-2 Score 0 03/17/2024 Internet Access Answer Date Recorded Internet Access Q1 No 04/03/2024 Internet Access Q2 I do not want or need it 03/07 Sex and Gender Information Value Date Recorded Sex Assigned at Male 06/04/2022 10:16 AM EDT Legal Sex Male 10:16 AM EDT Gender Identity Male 06/04/2022 10:16 AM EDT Sexual Orientation Lesbian or Villafuerte 06/04/2022 10 :16 AM EDT Last Filed Vital Signs Vital Sign Reading Time Taken Comments Blood Pressure 136/92 12/21/2024 8:59 AM EDT Pulse 78 12/21/2024 8:59 AM EDT Temperature 36.3 ??C (97.4 ??F) 12/21/2024 8:59 AM ED T Respiratory Rate 12 11/12/2024 9:49 AM EDT Oxygen Saturation 98% 12/21/2024 8:59 AM EDT Inhaled Oxygen Concentration - - Weight 67.2 kg (148 lb 3.2 oz) 11/12/2024 9:49 A M EDT Height 157.5 cm (5' 2 ) 11/12/2024 9:49 AM EDT Body Mass Index 27.11 11/12/2024 9:49 AM EDT Plan of Treatment Health Maintenance Due Date Last Done Comments Anal Pap 1966 CT Colonography 1966 FIT DNA/Cologuard 1966 FIT 1966 FOBT 1965 Sigmoidoscopy 1965 Disability Screening 1966 Hepatitis A Vaccines (1 of 2 - Risk 2-dose series) 1985 Dental Oral Exam 10/03/2024 04/03/2024, , 04/04/2017, Additional history exists Dental Prophylaxis 11/20/2024 05/21/2024, 0 05/04/2021, 01/16/2018, Additional history exists Alcohol/Substance Use Screening 03/17/2025 03/17/2024 Depression Screening 03/17/2025 03/17/2024, 03/17/20 24 SDOH Screening 03/17/2025 03/17/2024 Dental X-Ray: Bitewings 04/04/2025 04/03/20 24, 05/04/2021, 04/04/2017, Additional history exists Tobacco Screening 12/21/2025 12/21/2024 Dental X-Ray: Full Mouth 04/04/2027 024, 08/15/2023, 05/04/2021, Additional history exists Colonoscopy 08/25/2028 08/25/2018 Colorectal Cancer Screening 08/25/2028 Lipid Panel 11/13/2029 11/13/2024, 03/2023, 05/18/2022, Additional history exists DTaP/Tdap/Td Vaccines (3 - Td or Tdap) 12/30/2029 12/31/2019, 07/30/2013, 10/14/2008 RSV Patients and Patients Aged 60 years or older (1 - 1-dose 75+ series) 2041 Hepatitis B Vaccines Completed 01/20/2001, 08/20/2000, 07/19/2000 Zoster Vaccines Completed 08/14/2021, 06/12/2021 HIV Screening Completed 05/18/2022, 04/06, 07/25/2020 Hepatitis C Screening Completed 05/18/2022 , 05/03/2021, 07/25/2020, Additional history exists Influenza Vaccine Completed 08/14/2024, , 04/24/2022, Additional history exists COVID-19 Vaccine Completed 08/21/2024, , 08/25/2021, Additional history exists Pneumococcal Vaccine: 50+ Years Completed 11/12/2024 HIB Vaccines Aged Out No longer eligi ble based on patient's age to complete this topic HPV Vaccines Aged Out No longer eligi ble based on patient's age to complete this topic IPV Vaccines Aged Out No longer eligi ble based on patient's age to complete this topic Meningococcal B Vaccine Aged Out No l onger eligible based on patient's age to complete this topic Meningococcal Vaccine Aged Out No saul liz eligible based on patient's age to complete this topic RSV under 20 months Aged Out No longe r eligible based on patient's age to complete this topic Rotavirus Vaccines Aged Out No longer eligible based on patient's age to complete this topic Goals Goal Patient Goal Type Associated Problems Recent Progress Patient-Stated? Author Patient will continue to adhere to medication regimen General No Saige English Keep your medical appointments Lifestyle No Saige English Procedures Procedure Name Priority Date/Time Associated Diagnosis Comments XR CHEST 2 VIEWS Routine 12/21/2024 9:55 AM EDT SOB (shortness of breath) LIPID PANEL, STANDARD Routine 11/13/2024 9:33 AM EDT High cholesterol COMPREHENSIVE METABOLIC PANEL Routine 11/13/2024 9:33 AM EDT High cholesterol POCT INFLUENZA B (ID NOW RAPID MOLECULAR) Routine 09/23/2024 2:54 PM EST Nasal congestion POCT INFLUENZA A (ID NOW RAPID MOLECULAR) Routine 09/23/2024 2:53 PM EST Nasal congestion POC SLATER ID NOW STREP A Routine 09/23/2024 2:52 PM EST Sore throat POCT COVID-19 AG SLATER ID NOW Routine 09/23/2024 2:51 PM EST Sore throat PROPHYLAXIS - ADULT Routine 05/21/2024 1 0:00 AM EDT Advanced periodontitis Gingival bleeding Missing teeth, acquired Localized gingival recession INTRAORAL - COMPLETE SERIES OF RADIOGRAPHIC IMAGES Routine 04/03/2024 10:30 AM EDT PERIODIC ORAL EVALUATION - ESTABLISHED PATIENT Routine 04/03/2024 10:30 AM EDT ZZZ HISTORICAL HEPATITIS C AB W/REFL TO HCV RNA, QN, PCR Routine 05/18/2022 10:07 AM EDT HIV 1/2 ANTIGEN/ANTIBODY, FOURTH GENERATION W/RFL Routine 05/18/2022 10:07 AM EDT HM COLONOSCOPY Routine 08/25/2018 12:32 PM EST from Last 3 Months or Most Recently Relevant to Health Maintenance Results * XR Chest 2 Views (12/21/2024 9:55 AM EDT) Anatomical Region Laterality Modality Chest Radiographic Nafisa ging 12/21/2024 9:55 AM EDT Narrative 12/21/2024 10:12 AM EDT ?[facility] [facility] ?[address] ?[place] [address] ?XRay Report ? Signed ? Patient: Davis,Gary I ?MR#: [id number] ?? [id number] ? : 1965 ?Acct:[id number] ? Age/Sex: 59 / M ?ADM Date: 12/21/24 ? Loc: HO.HHCX ? Attending Dr: Raudel Howard MD ? Ordering Physician: Raudel Howard MD ?? Date of Service: 12/21/24 ?? Procedure(s): XR chest 2V ?? Accession Number(s): [id number] ? cc: Raudel Howard MD ? EXAMINATION: ?? XR CHEST ? CLINICAL INFORMATION: ?? SOB ? COMPARISON: ?? 06/15/2023. ? TECHNIQUE: ?? 2 views of the chest were obtained. ? FINDINGS: ?? The cardiac, hilar, and mediastinal contours are normal. ? The lungs are somewhat hyperaerated, however clear bilaterally. There ?? is no pneumothorax or pleural effusion. ? There is no focal osseous or soft tissue abnormality. There are ?? degenerative changes in the spine. ? XR/XR chest 2V ?? IMPRESSION: ?? Findings suggesting COPD. No active superimposed disease. ? Electronically signed by: ??David Vann MD ??12/21/2024 10:09 AM EDT RP ? Dictated By: ?David Vann MD ? Signed By: ?<Electronically signed by David Vann MD in OV> ?12/21/24 1009 ? DD/ 0955 ? TD/TT: 12/21/24 1000 ? Business Intelligence Etl Developer: ? Procedure Note Kimberly Drummond - 12/21/[address] [address] XRay Report Signed Patient: Gary Davis IMR#: [id number] : 1965Acct:[id number] Age/Sex: 59 / MADM Date: 12/21/24 Loc: HO.HHCX Attending Dr: Raudel Howard MD Ordering Physician: Raudel Howard MD Date of Service: 12/21/24 Procedure(s): XR chest 2V Accession Number(s): [id number] cc: Raudel Howard MD EXAMINATION: XR CHEST CLINICAL INFORMATION: SOB COMPARISON: 06/15/2023. TECHNIQUE: 2 views of the chest were obtained. FINDINGS: The cardiac, hilar, and mediastinal contours are normal. The lungs are somewhat hyperaerated, however clear bilaterally. There is no pneumothorax or pleural effusion. There is no focal osseous or soft tissue abnormality. There are degenerative changes in the spine. XR/XR chest 2V IMPRESSION: Findings suggesting COPD. No active superimposed disease. Electronically signed by: David Vann MD 12/21/2024 10:09 AM EDT RP Dictated By: David Vann MD Signed By: <Electronically signed by David Vann MD in OV> 12/21/24 1009 DD/ 0955 TD/TT: 12/21/24 1000 Business Intelligence Etl Developer: us Raudel Howard MD IMG XR PROCEDURES Edited Re sult - Final * Lipid Panel, Standard (11/13/2024 9:33 AM EDT) Triglycerides 108 <150 mg/dL [facility] Comment:Desirable Triglyceri de: less than 150 mg/dLBorderline High Triglyceride 150-199 mg/dLHigh Triglyceride: 200-499 mg/dLVery High Triglyceride: greater than or equal to 5OO mg/dL Cholesterol 159 <200 mg/dL [facility] Comment:Desirable Cholestero l: less than 200 mg/dLBorderline High Cholesterol: 200-239 mg/dLHigh Cholesterol: greater than 239 mg/dL LDL Cholesterol Calculated 83 <100 mg/dL [facility] Comment:Desirable LDL: less than 100 mg/dLNear Optimal/Above Optimal LDL: 110- 129 mg/dLBorderline High LDL: 130-159 mg/dLHigh LDL: 160-189 mg/dLVery High LDL: greater than or equal to 190 mg/dL HDL Cholesterol 55 >40 mg/dL [facility] Comment:Desirable HDL: great er than 40 mg/dL Note: This HDL assay may give artificially low results in patients with liver disease. Blood Venous blood specimen / Unknown 11/13/2024 9:33 AM EDT 11/13/2024 11:26 AM EDT us Homero Sosa MD LAB BLOOD ORDERABLES Final Resul t Performing Organization Address City/[facility] Co de Phone Number [facility] [address] [place] [address] [phone] * (ABNORMAL) Comprehensive Metabolic Panel (11/13/2024 9:33 AM EDT) Sodium 141 135 - 145 mmol/L [facility] Potassium 4.2 3.3 - 5.1 mmol/L [facility] Chloride 107 96 - 108 mmol/L [facility] Carbon Dioxide 28 22 - 29 mmol/L [facility] Anion Gap 10(L) 12 - 20 [facility] Urea Nitrogen (BUN) 11 9 - 16 mg/dL [facility] Creatinine, Serum 1.10 0.5 - 1.4 mg/dL [facility] Estimated Glomerular Filt Rate >60 [facility] Comment:Chronic Kidney Disea se: Estimated GFR < 60 mL/min/1.49b4Cmhrwv Kidney Disease: Estimated GFR < 15 mL/min/1.73m2 Glucose 88 60 - 115 mg/dL [facility] Calcium 9.0 8.4 - 10.2 mg/dL [facility] Bilirubin, Total 0.4 0.0 - 1.0 mg/dL [facility] Aspartate Amino Transferase 32 5 - 37 U/L [facility] Alanine Aminotransferase 36 0 - 40 U/L [facility] Total Protein 7.3 6.5 - 8.0 g/dL [facility] Albumin Level 4.4 3.5 - 5.0 g/dL [facility] Alkaline Phosphatase 78 39 - 117 U/L [facility] Blood Venous blood specimen / Unknown 11/13/2024 9:33 AM EDT 11/13/2024 11:26 AM EDT us Homero Sosa MD LAB BLOOD ORDERABLES Final Resul t Performing Organization Address City/State/[facility] Co de Phone Number [facility] [address] [place] [phone] * POCT Rapid Influenza B SLATER ID NOW (09/23/2024 2:54 PM EST) Influenza B Negative Negative, Indeterminate [facility] QC Media Lot # [id number] [facility] Lot# Expiration Date [facility] Swab 09/23/2024 2:54 PM EST Bess Only Mallorcaas INSPECTOR HANDBAG FRAMES POINT OF CARE TEST ENTER/EDIT O RDERABLES Final Result Performing Organization Address [facility] Co de Phone Number [facility] [address] [place] [phone] * POCT Rapid Influenza A SLATER ID NOW (09/23/2024 2:53 PM EST) Influenza A Negative Negative, Indeterminate [facility] QC Media Lot # [id number] [facility] Lot# Expiration Date [facility] Swab 09/23/2024 2:53 PM EST Bess Pressly INSPECTOR HANDBAG FRAMES POINT OF CARE TEST ENTER/EDIT O RDERABLES Final Result Performing Organization Address [facility] Co de Phone Number [facility] [address] [place] [phone] * POCT Rapid Strep A SLATRE ID NOW (09/23/2024 2:52 PM EST) Rapid Strep A Screen Negative Negative, None Detected QC Media Lot # [id number] Lot# Expiration Date Swab 09/23/2024 2:52 PM EST Bess Only Mallorcaas INSPECTOR HANDBAG FRAMES POINT OF CARE TEST ENTER/EDIT O RDERABLES Final Result * POCT Rapid Covid-19 SLATER ID NOW (09/23/2024 2:51 PM EST) Coronavirus Antigen PCR Negative Negative, Indeterminate, None Detected, Invalid, Specimen unsatisfactory for evaluation, Weakly Positive QC Media Lot # [id number] Lot# Expiration Date [id number] Swab 09/23/2024 2:51 PM EST Bess Schneider INSPECTOR HANDBAG FRAMES POINT OF CARE TEST ENTER/EDIT O RDERABLES Final Result * HEPATITIS C AB W/REFL TO HCV RNA, QN, PCR (05/18/2022 10:07 AM EDT) Pathologist [facility] HEPATITIS C ANTIBODY NON-REACTI VE NON-REACT JONNIE CONVERTED LEGACY LABS INDEX 0.16 <1.00 CONVERTED LEGACY LABS Comment: ?? HCV antibody was non-reactive. There is no laboratory ?? evidence of HCV infection. ?? In most cases, no further action is required. However, if recent HCV exposure is suspected, a test for HCV RNA (test code 84987) is suggested. ?? For additional information please refer to http://education.TSO3/faq/FNS66e7 (This link is being provided for informational/ educational purposes only.) ?? 05/18/2022 10:0 7 AM EDT Result [facility] Homero Sosa MD HISTORICAL/NON ORDERABLE LABS Fi nal Result CONVERTED LEGACY LABS * HIV 1/2 ANTIGEN/ANTIBODY,FOURTH GENERATION W/RFL (05/18/2022 10:07 AM EDT) Pathologist [facility] HIV-1/2 ANTIGEN AND ANTIBODIES, 4TH GENERATION W/ REFLEX NON-REACT JONNIE NON-REACT JONNIE CONVERTED LEGACY LABS Comment: HIV-1 antigen and HIV-1/HIV-2 antibodies were not detected. There is no laboratory evidence of HIV infection. ?? PLEASE NOTE: This information has been disclosed to you from records whose confidentiality may be protected by state law. ??If your state requires such protection, then the state law prohibits you from making any further disclosure of the information without the specific written consent of the person to whom it pertains, or as otherwise permitted by law. A general authorization for the release of medical or other information is NOT sufficient for this purpose. ? For additional information please refer to http://numberFire.TSO3/faq/KQS266 (This link is being provided for informational/ educational purposes only.) ? The performance of this assay has not been clinically validated in patients less than 2 years old. ?? 05/18/2022 10:0 7 AM EDT Homero Sosa MD LAB BLOOD ORDERABLES Final Resul t CONVERTED LEGACY LABS * Colonoscopy (08/25/2018 12:32 PM EST) Colonoscopy Normal Normal Narrative Ilana Torres - 08/25/2018 12:32 PM EST Recommended 10 year follow up([facility]) Historical Provider HEALTH MAINTENANCE Final Result from Last 3 Months or Most Recently Relevant to Health Maintenance [place] [phone] [facility] ONE CARE < 65 [facility] ONE CARE < 65 [facility] Care Teams Sandstone Splitter Relationship Specialty Start Date End Date Name, MD Homero [address] [place] [address] PCP - General Family Medicine 03/25/17
--- OUTSIDE RECORDS SUMMARY | 2024-12-21 10:15 | XMS_ITS | Encounter Summary ---
Author Organization [employer] Address [address] 7[address] [place] [address] Care Team Providers Care Social Work Professor Name Role Phone Name, Homero GUILLAUME Primary Care Provider [phone] Encounter Details Date Type Department Care Team ([facility] st Contact Info) Description 03/21/2023 Orders Only [facility] [address] [place], [place] [phone] Virginia White LPN Social History Tobacco Use Types Packs/Day Years Used Date Smoking Tobacco: Former Cigarettes Q uit: 2018 Smokeless Tobacco: Never Alcohol Use Standard Drinks/Week Comments Not Currently 0 (1 standard drink = 0.6 oz pur e alcohol) Depression Answer Date Recorded Patient Health Questionnaire-9 Score 0 02/11/2023 Depression Answer Date Recorded Patient Health Questionnaire-2 Score 0 02/11/2023 Sex and Gender Information Value Date Recorded Sex Assigned at Male 06/04/2022 10:16 AM EDT Legal Sex Male 10:16 AM EDT Gender Identity Male 06/04/2022 10:16 AM EDT Sexual Orientation Lesbian or Villafuerte 06/04/2022 10 :16 AM EDT documented as of this encounter Plan of Treatment Not on file documented as of this encounter Procedures Procedure Name Priority Date/Time Associated Diagnosis Comments INFLUENZA A B2 ID NOW (SLATER) Routine 06/01/2023 6:34 PM EDT COVID-19 ID NOW (SLATER) Routine 06/01/2023 6:34 PM EDT CBC WITH AUTO DIFFERENTIAL Routine 06/01/2023 6:34 PM EDT PROTHROMBIN TIME-INR Routine 06/01/2023 6:34 PM EDT LIPASE Routine 06/01/2023 6:34 PM EDT COMPREHENSIVE METABOLIC PANEL Routine 06/01/2023 6:34 PM EDT documented in this encounter Results * COVID-19 ID NOW (SLATER) (06/01/2023 6:34 PM EDT) IDNOW SERIAL# [id number] [facility] COVID-19 TEST Negative Negative [facility] COVID-19 NOTE See Note [facility] Comment: Results are for the identification of SARS-CoV2 RNA. TheSARS-CoV2 RNA is generally detectable in respiratory samplesduring the acute phase of infection. Positive results areindicative of the presence of SARS-CoV-2 RNA; clinicalcorrelation with patient history and other diagnosticinformation is necessary to determine patient infectionstatus. Positive results do not rule out bacterial infectionor co- infection with other viruses.Testing facilities within the [facility] and [facility]porter medical centeries are required to report all positive results tothe appropriate public health authorities.Negative results should be treated as presumptive and, ifinconsistent with clinical signs and symptoms or necessaryfor patient management, should be tested with differentauthorized or cleared molecular tests. Negative results donot preclude SARS-CoV2 RNA infection and should not be usedas the sole basis for patient management decisions. Negativeresults should be considered in the context of a patient'srecent exposures, history and the presence of clinical signsand symptoms consistent with COVID-19.This test has been authorized by the FDA under an EmergencyUse Authorization (EUA) for use by authorized laboratories.Testing performed on the Slater ID NOW utilizing NAAT. 06/01/2023 6:34 PM EDT 06/01/2023 6:42 PM EDT us [facility] Exter nal Provider LAB MOLECULAR DIAGNOSTICS ORDERABLES Final Result [facility] [address] [place] [phone] * Influenza A B2 ID NOW (Slater) (06/01/2023 6:34 PM EDT) IDNOW SERIAL# [id number] [facility] Influenza A Negative Negative [facility] Influenza B2 Negative Negative [facility] Influenza A B2 Note See Note [facility] Comment:The Slater ID NOW In fluenza A B2 test is used for thequalitative detection of influenza A and B from patientswith signs and symptoms of respiratory infection.Negative results do not preclude influenza virus infectionand should not be used as the sole basis for diagnosis,treatment or other patient management decisions.There is a risk of false negative results due to thepresence of variants in the viral targets of the assay, lowlevels of virus in the specimen and co- infection withRespiratory Syncytial Virus. 06/01/2023 6:34 PM EDT 06/01/2023 6:42 PM EDT us [facility] Exter nal Provider LAB MICROBIOLOGY - GENERAL ORDERABLES Final Result Performing Organization Address City/[facility]/ZIP Co de Phone Number [facility] [address] [place] [phone] * Lipase (06/01/2023 6:34 PM EDT) Pathologist [facility] Lipase 21 8 - 78 U/L [facility] 06/01/2023 6:34 PM EDT 06/01/2023 6:42 PM EDT Generic External Data Provider LAB BLOOD ORDERAB LES Final Result Performing Organization Address [facility]/ZIP Co de Phone Number [facility] [address] [place] [phone] * (ABNORMAL) Comprehensive Metabolic Panel (06/01/2023 6:34 PM EDT) [facility] Sodium 139 135 - 145 mmol/L [facility] Potassium 4.2 3.3 - 5.1 mmol/L [facility] Chloride 105 96 - 108 mmol/L [facility] Carbon Dioxide 25 22 - 29 mmol/L [facility] Anion Gap 13 12 - 20 [facility] Urea Nitrogen (BUN) 10 9 - 16 mg/dL [facility] Creatinine, Serum 1.16 0.5 - 1.4 mg/dL [facility] Creatinine Clr Calc Pharmacy 54.9 [facility] Comment:eGFR (calculated fro m the MDRD study equation) and eCrCl(calculated from the Cockcroft-Gault equation) are based ondifferent parameters and may not yield comparable results.If eCrCl result is absurd, please check patient'sheight/weight. Estimated Glomerular Filt Rate >60 [facility] Comment:NOTE: For -Am erican individuals, multiply the result by 1.210.Chronic Kidney Disease: Estimated GFR < 60 mL/min/1.13q8Yefero Kidney Disease: Estimated GFR < 15 mL/min/1.73m2 Glucose 120(H) 60 - 115 mg/dL [facility] Calcium 9.3 8.4 - 10.2 mg/dL [facility] Bilirubin, Total 0.5 0.0 - 1.0 mg/dL [facility] Aspartate Amino Transferase 23 5 - 37 U/L [facility] Alanine Aminotransferase 18 0 - 40 U/L [facility] Total Protein 7.3 6.5 - 8.0 g/dL [facility] Albumin Level 4.2 3.5 - 5.0 g/dL [facility] Alkaline Phosphatase 78 39 - 117 U/L [facility] 06/01/2023 6:34 PM EDT 06/01/2023 6:42 PM EDT us [facility] External Provider LAB BLO OD ORDERABLES Final Result [facility] [address] [place] [phone] * Prothrombin Time-INR (06/01/2023 6:34 PM EDT) Pathologist [facility] Prothrombin Time 11.4 11.1 - 13.3 SEC [facility] INTERNATIONAL NORM RATIO 0.9 0.9 - 1.1 [facility] Comment:INTERNATIONAL NORMAL IZED RATIO (INR) REFERENCE RANGES Reference RangeFor patients not on anticoagulant therapy: 0.9 - 1.1INR ranges for oral anticoagulanttherapy:For prevention and treatment of venous thrombosis and pulmonary embolism: 2.0 - 3.0For acute myocardial infarction with aspirin therapy: 2.0 - 3.0For acute myocardial infarction without aspirin therapy: 3.0 - 4.0For patients with mechanical prosthetic heart valves: 2.5 - 3.5 06/01/2023 6:34 PM EDT 06/01/2023 6:42 PM EDT us [facility] External Provider LAB BLO OD ORDERABLES Final Result Performing Organization Address City/State/[facility] Co de Phone Number [facility] [address] [place] [phone] * (ABNORMAL) CBC auto differential (06/01/2023 6:34 PM EDT) [facility] White Blood Count 8.1 4.8 - 10.8 X10*3/uL [facility] Red Blood Count 4.64 4.60 - 5.80 X10*6/uL [facility] Hemoglobin 13.1(L) 14.0 - 18.0 g/dl [facility] Hematocrit 39.3(L) 42.0 - 52.0 % [facility] Mean Corpuscular Volume 84.7 80.0 - 98.0 fL [facility] Mean Corpuscular Hemoglobin 28.2 27.0 - 33.0 pg [facility] Mean Corpuscular HGB Conc 33.3 31.0 - 36.0 g/dl [facility] Red Cell Distribution Width 13.1 11.0 - 16.0 % [facility] Platelet Count 232 160 - 400 X10*3/uL [facility] Mean Platelet Volume 8.8(L) 9.4 - 12.4 fL [facility] Neutrophils Percent Auto 60.0 45 - 73 % [facility] Imm Gran Pct Auto 0.2 0.0 - 0.4 % [facility] Lymphocytes Percent Auto 28.3 20 - 40 % [facility] Monocytes Percent Auto 8.5 2 - 11 % [facility] Eosinophils Percent Auto 2.3 0 - 4 % [facility] Basophils Percent Auto 0.7 0 - 2 % [facility] NRBC Pct Auto 0.0 0.0 - 0.2 /100WBC [facility] Neutrophils Absolute Auto 4.8 2.0 - 8.3 x10*3/uL [facility] Imm Gran Abs Auto 0.02 0.00 - 0.03 X10*3/uL [facility] Lymphocytes Absolute Auto 2.3 1.2 - 4.9 X10*3/uL [facility] Monocytes Absolute Auto 0.7 0.1 - 1.2 X10*3/uL [facility] Eosinophils Absolute Auto 0.2 0.0 - 0.4 X10*3/uL [facility] Basophils Absolute Auto 0.1 0.0 - 0.2 X10*3/uL [facility] NRBC Abs Auto 0.000 0.0 - 0.012 X10*3/uL [facility] 06/01/2023 6:34 PM EDT 06/01/2023 6:42 PM EDT us [facility] External Provider LAB BLO OD ORDERABLES Final Result [facility] [address] [place] [phone] documented in this encounter Visit Diagnoses Not on filedocumented in this encounter Additional Health Concerns Assessment Noted Time PHQ-9 Depression Total Score: 0 02/12/20 23 1:21 PM EDT documented as of this encounter Care Teams Social Work Professor Relationship Specialty Start Date End Date Name, MD Homero [address] [place] [address] PCP - General Family Medicine 03/25/17 documented as of this encounter
--- OUTSIDE RECORDS SUMMARY | 2024-12-21 10:15 | XMS_ITS | Encounter Summary ---
Author Organization [employer] Address [address] [place] [address] Care Team Providers Care Overhauler Bus Truck Name Role Phone Name, Homero GUILLAUME Primary Care Provider [phone] Reason for Visit * Reason Comments Shortness of Breath Encounter Details Date Type Department Care Team ([facility] Contact Info) Description 12/21/2024 9:20 AM EDT Office Visit [facility] [address] [place], [place] [phone] SOB (shortness of breath) (Primary Dx); Costochondritis, acute Social History Tobacco Use Types Packs/Day Years [...] AM EDT documented as of this encounter Last Filed Vital Signs Vital Sign Reading Time Taken Comments Blood Pressure 136/92 12/21/2024 8:59 AM EDT Pulse 78 12/21/2024 8:59 AM EDT Temperature 36.3 ??C (97.4 ??F) 12/21/2024 8:59 AM ED T Respiratory Rate - - Oxygen Saturation 98% 12/21/2024 8:59 AM EDT Inhaled Oxygen Concentration - - Weight - - Height - - Body Mass Index - - documented in this encounter Plan of Treatment Scheduled Orders Name Type Priority Associated Diagnoses Orde r Schedule CBC auto differential Lab Routine SOB (shortness of breath) Expected: 12/21/2024 (Approximate), Expires: 12/21/2025 D-Dimer, Quantitative Lab Routine SOB (shortness of breath) Expected: 12/21/2024 (Approximate), Expires: 12/21/2025 Sed Rate by Modified [place] Lab Routine SOB (shortness of breath) Expected: 12/21/2024, Expires: 12/21/2025 documented as of this encounter Goals Goal Patient Goal Type Associated Problems Recent Progress Patient-Stated? Author Patient will continue to adhere to medication regimen General Saige Hernandez Keep your medical appointments Lifestyle Saige Hernandez documented as of this encounter Procedures Procedure Name Priority Date/Time Associated Diagnosis Comments XR CHEST 2 VIEWS Routine 12/21/2024 9:55 AM EDT SOB (shortness of breath) documented in this encounter Results * XR Chest 2 Views (12/21/2024 9:55 AM EDT) Anatomical Region Laterality Modality Chest Radiographic Nafisa ging 12/21/2024 9:55 AM EDT Narrative 12/21/2024 10:12 AM EDT ?[facility] ?[address] ?[place] [address] ?XRay Report ? Signed ? Patient: DavisGary I ?MR#: [id number] ?? [id number] ? : 1965 ?Acct:[id number] ? Age/Sex: 59 / M ?ADM Date: 12/21/24 ? Loc: HO.HHCX ? Attending Dr: Raudel Howard MD ? Ordering Physician: Raudel Howard MD ?? Date of Service: 12/21/24 ?? Procedure(s): XR chest 2V ?? Accession Number(s): [id number] ? cc: Raudel Howard MD ? EXAMINATION: [...] DD/ 0955 ? TD/TT: 12/21/24 1000 ? Learning And Development Manager: ? Procedure Note Bhanu, Kimberly - 12/21/2024 [facility] [address] [place] [address] XRay Report Signed Patient: Gary Davis IMR#: [id number] : 1965Acct:[id number] Age/Sex: 59 / MADM Date: 12/21/24 Loc: HO.HHCX Attending Dr: Raudel Howard MD Ordering Physician: Raudel Howard MD Date of Service: 12/21/24 Procedure(s): XR chest 2V Accession Number(s): [id number] cc: Raudel Howard MD EXAMINATION: XR CHEST [...] 12/21/24 1009 DD/ 0955 TD/TT: 12/21/24 1000 Learning And Development Manager: Raudel Howard MD IMG XR PROCEDURES Edited Re sult - Final documented in this encounter Visit Diagnoses Diagnosis SOB (shortness of breath)- Primary Shortness of breath Costochondritis, acute documented in this encounter Additional Health Concerns Assessment Noted Time PHQ-9 Depression Total Score: 0 03/17/20 24 1:42 PM EDT documented as of this encounter Care Teams Overhauler Bus Truck Relationship Specialty Start Date End Date Name, MD Homero [address] [place] [address] PCP - General Family Medicine 03/25/17 documented as of this encounter
--- OUTSIDE RECORDS SUMMARY | 2024-12-21 10:15 | XMS_ITS | Encounter Summary ---
Author Organization [employer] Address [address] [place] [address] Care Team Providers Care Fifth Grade Teacher Name Role Phone Name, Homero GUILLAUME Primary Care Provider [phone] Encounter Details Date Type Department Care Team (Latest Contact Info) Description 12/21/2024 Travel Social History Tobacco Use Types Packs/Day Years Used Date Smoking Tobacco: Former Cigarettes Q uit: 2018 Passive Smoke Exposure: Past Smokeless Tobacco: Never Alcohol Use Standard Drinks/Week [...] on file documented as of this encounter Goals Goal Patient Goal Type Associated Problems Recent Progress Patient-Stated? Author Patient will continue to adhere to medication regimen General No Saige English Keep your medical appointments Lifestyle No Saige English documented as of this encounter Visit Diagnoses Not on filedocumented in this encounter Additional Health Concerns Assessment Noted Time PHQ-9 Depression Total Score: 0 03/17/20 24 1:42 PM EDT documented as of this encounter Care Teams Fifth Grade Teacher Relationship Specialty Start Date End Date Name, MD Homero [address] [place] [address] PCP - General Family Medicine 03/25/17 documented as of this encounter
--- OUTSIDE RECORDS SUMMARY | 2024-12-21 10:15 | XMS_ITS | Encounter Summary ---
Author Organization [employer] Address [address] [place] [address] Care Team Providers Care Raking Machine Operator Name Role Phone Name, Homero GUILLAUME Primary Care Provider [phone] Encounter Details Date Type Department Care Team ([facility] Contact Info) Description 10/05/2022 Telephone [facility] [address] [place] [address] Nati Rivera LPN Social History Tobacco Use Types Packs/Day [...] on filedocumented in this encounter Care Teams Raking Machine Operator Relationship Specialty Start Date End Date Name, MD Homero [address] [place] [address] PCP - General Family Medicine 03/25/17 documented as of this encounter
--- OUTSIDE RECORDS SUMMARY | 2024-12-21 10:15 | XMS_ITS | Encounter Summary ---
Author Organization [employer] Address [address] [place] [address] Care Team Providers Care Manager Strategic Partnerships Name Role Phone Name, Homero GUILLAUME Primary Care Provider [phone] Reason for Visit * Reason Onset Date Comments rs missed appt 09/11/2024 Encounter Details Date Type Department Care Team ([facility] st Contact Info) Description 09/11/2024 Telephone [facility] [address] [place], [place] [phone] Reinier, Mariama [address] [place] [address] rs missed appt Social History Tobacco Use Types Packs/Day Years [...] AM EDT documented as of this encounter Miscellaneous Notes * Telephone Encounter - Maureen Sena - 09/11/2024 9:53 AM EST Patient unable to come today 11am SRP due to spouse parent in hospital. Informed patient that at this time appt is considered no show. Office will call him to rs after a waiting period. Patient understood DR documented in this encounter Plan of Treatment Not on [...] documented as of this encounter Care Teams Manager Strategic Partnerships Relationship Specialty Start Date End Date Name, MD Homero [address] [place] [address] PCP - General Family Medicine 03/25/17 documented as of this encounter
--- OUTSIDE RECORDS SUMMARY | 2024-12-21 10:15 | XMS_ITS | Encounter Summary ---
Author Organization [employer] Address [address] [place] [address] Care Team Providers Care Superintendent Distribution Name Role Phone Name, Homero GUILLAUME Primary Care Provider [phone] Reason for Visit * Reason Comments Med Refill Encounter Details Date Type Department Care Team ([facility] st Contact Info) Description 07/09/2022 Refill [facility] [address] [place] [address] Name, MD Homero [address] [place] [phone] Social History Tobacco Use Types Packs/Day Years [...] on filedocumented in this encounter Care Teams Superintendent Distribution Relationship Specialty Start Date End Date Name, MD Homero [address] [place] [phone] PCP - General Family Medicine 03/25/17 documented as of this encounter
--- OUTSIDE RECORDS SUMMARY | 2024-12-21 10:15 | XMS_ITS | Encounter Summary ---
Author Organization [employer] Address [address] [place] [address] Care Team Providers Care Yeast Supervisor Name Role Phone Name, Homero GUILLAUME Primary Care Provider [phone] Reason for Visit * Reason Onset Date Comments Referral 08/22/2023 Encounter Details Date Type Department Care Team ([facility] Contact Info) Description 08/22/2023 Telephone [facility] [address] [place], [place] [phone] Name, MD Homero [address] [place] [address] Referral Social History Tobacco Use Types Packs/Day Years Used Date Smoking Tobacco: Former Cigarettes Q uit: 2018 Smokeless Tobacco: Never Alcohol Use Standard Drinks/Week Comments Not Currently 0 (1 standard drink = 0.6 oz pur e alcohol) Depression Answer Date Recorded Patient Health Questionnaire-9 Score 0 02/11/2023 Housing Stability Answer Date Recorded What is your housing situation today? I have darryl stiles 05/27/[address] you li ve. Do you have problems with any of the following? None of the above 05/27/2023 Food Insecurity Answer Date Recorded Within the past 12 months, y ou worried that your food would run out before you got money to buy more: Never True 05/27/2023 Within the past 12 months,th e food you bought just didn't last and you didn't have enough money to get more: Never True Transportation Answer Date Recorded In the past 12 months, has l ack of transportation kept you from medical appts, meetings, work or from getting things needed for daily living? No 05/27/2023 Utilities Answer Date Recorded In the past 12 months, has t he electric, gas, oil or water company threatened to shut off services in your home? No 05/27/2023 Depression Answer Date Recorded Patient Health Questionnaire-2 Score 0 02/11/2023 Sex and Gender Information Value Date Recorded Sex Assigned at Male 06/04/2022 10:16 AM EDT Legal Sex Male 10:16 AM EDT Gender Identity Male 06/04/2022 10:16 AM EDT Sexual Orientation Lesbian or Villafuerte 06/04/2022 10 :16 AM EDT documented as of this encounter Miscellaneous Notes * Telephone Encounter - Katharine Ray RN - 08/27/2023 8:48 AM EST FYI T/C to pt. Through [employer] id - [id number] to inquiry why pt. Is looking for eye care referral, No answer. LVM to call back on [phone]. * Telephone Encounter - Regina Castaneda - 08/22/2023 2:33 PM EST Referral Specialty:Eye center Location: [facility] Date&Time: N/a Clinical Sciences Professor:no documented in this encounter Plan of Treatment [...] documented as of this encounter Care Teams Yeast Supervisor Relationship Specialty Start Date End Date Name, MD Homero [address] [place] [address] PCP - General Family Medicine 03/25/17 documented as of this encounter
--- OUTSIDE RECORDS SUMMARY | 2024-12-21 10:15 | XMS_ITS | Encounter Summary ---
Author Organization [employer] Address [address] [place] [address] Care Team Providers Care Traffic Supervisor Name Role Phone Name, Homero GUILLAUME Primary Care Provider [phone] Encounter Details Date Type Department Care Team ([facility] Contact Info) Description 10/15/2022 Abstract [facility] [address] [place] [address] Name, MD Homero [address] [place] [phone] Social History Tobacco Use Types Packs/Day Years Used Date Smoking Tobacco: Former Cigarettes Q uit: 2018 Smokeless Tobacco: Never Alcohol Use Standard Drinks/Week Comments Not Currently 0 (1 standard drink = 0.6 oz pur e alcohol) Sex and Gender Information Value Date Recorded Sex Assigned at Male 06/04/2022 10:16 AM EDT Legal Sex Male 10:16 AM EDT Gender Identity Male 06/04/2022 10:16 AM EDT Sexual Orientation Lesbian or Villafuerte 06/04/2022 10 :16 AM EDT COVID-19 Exposure Response Date Recorded In the last 10 days, have yo u been in contact with someone who was confirmed or suspected to have Coronavirus/COVID-19? No / Unsure 10/17/2022 11:19 AM EDT documented as of this encounter Plan of Treatment Not on file documented as of this encounter Visit Diagnoses Not on filedocumented in this encounter Care Teams Traffic Supervisor Relationship Specialty Start Date End Date Name, MD Homero [address] [place] [phone] PCP - General Family Medicine 03/25/17 documented as of this encounter
--- OUTSIDE RECORDS SUMMARY | 2024-12-21 10:15 | XMS_ITS | Encounter Summary ---
Author Organization [employer] Address [address] [place] [address] Care Team Providers Care Leak Inspector Name Role Phone Name, Homero GUILLAUME Primary Care Provider [phone] Reason for Visit * Reason Comments Med Refill Encounter Details Date Type Department Care Team ([facility] st Contact Info) Description 03/31/2023 Refill [facility] MED[facility] [address] [place] [address] Name, MD Homero [address] [place] [address] Social History Tobacco Use Types Packs/Day Years [...] documented as of this encounter Care Teams Leak Inspector Relationship Specialty Start Date End Date Name, MD Homero [address] [place] [address] PCP - General Family Medicine 03/25/17 documented as of this encounter
--- OUTSIDE RECORDS SUMMARY | 2024-12-21 10:15 | XMS_ITS | Encounter Summary ---
Author Organization [employer] Address [address] [place] [address] Care Team Providers Care Brick Stacker Name Role Phone Name, Homero GUILLAUME Primary Care Provider [phone] Reason for Visit * Reason Onset Date Comments Durable Medical Equipment 11/05/2022 Encounter Details Date Type Department Care Team ([facility] st Contact Info) Description 11/05/2022 Telephone [facility] MEDICINE [address] [place] [address] Name, MD Homero [address] [place] [address] Durable Medical Equipment Social History Tobacco Use Types Packs/Day Years [...] encounter Miscellaneous Notes * Telephone Encounter - Kristian Valencia - 11/05/2022 10:42 AM EDT Tc from Demetrice Blanca with [facility] Family Nurse Practitioner requesting a new script for CPAP supplies. Demetrice states that pt informed that facility informed that medical supplies for machine are not yet receive until 11/19/2022 of [facility]. Please contact Demetrice at [phone] to Confirm documented in this encounter Plan of Treatment Not on file documented as of this encounter Visit Diagnoses Not on filedocumented in this encounter Care Teams Brick Stacker Relationship Specialty Start Date End Date Name, MD Homero [address] [place] [address] PCP - General Family Medicine 03/25/17 documented as of this encounter
--- OUTSIDE RECORDS SUMMARY | 2024-12-21 10:15 | XMS_ITS | Encounter Summary ---
Author Organization [email or web address] Address [address] [place] [address] Care Team Providers Care Auto Wheel Alignment Specialist Name Role Phone Name, Homero GUILLAUME Primary Care Provider [phone] Reason for Visit * Reason Onset Date Comments ER Follow-up 09/17/2024 Nurse Triage 09/17/2024 Encounter Details Date Type Department Care Team ([facility] st Contact Info) Description 09/17/2024 Telephone [facility] MEDICINE [address] [place] [address] Name, MD Homero [address] [place] [address] ER Follow-up; Nurse Triage Social History Tobacco Use Types Packs/Day Years [...] encounter Miscellaneous Notes * Telephone Encounter - Sita Gustafson - 09/17/2024 1:08 PM EST Patient calling to report ED visit on : Date: 09/14 Hospital: [facility] Seen for: Pharyngitis Symptomatic Yes *if yes message should go to Triage Patient advised will forward to team nurse for follow up [phone] malagasy documented in this encounter Plan of Treatment [...] documented as of this encounter Care Teams Auto Wheel Alignment Specialist Relationship Specialty Start Date End Date Name, MD Homero [address] [place] [address] PCP - General Family Medicine 03/25/17 documented as of this encounter
--- OUTSIDE RECORDS SUMMARY | 2024-12-21 10:15 | XMS_ITS | Encounter Summary ---
Author Organization [employer] Address [address] [place] [address] Care Team Providers Care Fire Investigator Name Role Phone Name, Homero GUILLAUME Primary Care Provider [phone] Encounter Details Date Type Department [facility] Description 01/14/2023 Abstract [facility] MEDICINE [address] [place], [place] [id number] Name, MD Homero [address] [place] [address] Social History Tobacco Use Types Packs/Day Years [...] suspected to have Coronavirus/COVID-19? No / Unsure 12/25/2022 2:36 PM EDT documented as of this encounter Plan of Treatment Not on file documented as of this encounter Procedures Procedure Name Priority Date/Time Associated Diagnosis Comments COLONOSCOPY Routine 08/25/2018 12:32 PM EST documented in this encounter Results * Colonoscopy (08/25/2018 12:32 PM EST) Colonoscopy Normal Normal Narrative Ilana Torres - 08/25/2018 12:32 PM EST Recommended 10 year follow up([facility]) Historical Provider HEALTH MAINTENANCE Final Result documented in this encounter Visit Diagnoses Not on filedocumented in this encounter Care Teams Fire Investigator Relationship Specialty Start Date End Date Name, MD Homero [address] [place] [address] PCP - General Family Medicine 03/25/17 documented as of this encounter
== END 2024-12-21 09:55 | disposition home or self-care (01) ==
LOC: HO.HHCX 09:54
PROVIDERS: Visit Provider Internal Medicine
DX: R06.02 Shortness of breath (principal)
CPT/HCPCS: 71046

== ENCOUNTER → 2024-12-21 09:55 | Outpatient (BNV) | payer OTHER, SELFPAY | PROVIDERS: Visit Provider Radiology Diagnostic Radiology | DX: R06.02 Shortness of breath (principal) | CPT/HCPCS: 71046 ==

== ENCOUNTER 2024-12-21 10:07 | Outpatient (REF) | payer OTHER, SELFPAY ==
[2024-12-21 11:04] LABS: MANUAL DIFF FLAG NO
[2024-12-21 11:21] LABS: Basophils Absolute Auto 0.1 X10*3/uL (0.0-0.2); Eosinophils Absolute Auto 0.1 X10*3/uL (0.0-0.4); Eosinophils Percent Auto 1.2 % (0-4); Hematocrit 41.7 % (42.0-52.0); Hemoglobin 13.5 g/dl (14.0-18.0); Imm Gran Abs Auto 0.03 X10*3/uL (0.00-0.03); Imm Gran Pct Auto 0.4 % (0.0-0.4); Lymphocytes Absolute Auto 2.3 X10*3/uL (1.2-4.9); Lymphocytes Percent Auto 33.6 % (20-40); Mean Corpuscular HGB Conc 32.4 g/dl (31.0-36.0); Mean Corpuscular Volume 86.5 fL (80.0-98.0); Mean Platelet Volume 9.7 fL (9.4-12.4); Monocytes Absolute Auto 0.6 X10*3/uL (0.1-1.2); Monocytes Percent Auto 9.3 % (2-11); Neutrophils Absolute Auto 3.6 x10*3/uL (2.0-8.3); Neutrophils Percent Auto 54.5 % (45-73); Platelet Count 246 X10*3/uL (160-400); Red Blood Count 4.82 X10*6/uL (4.60-5.80); Red Cell Distribution Width 13.6 % (11.0-16.0); White Blood Count 6.7 X10*3/uL (4.8-10.8)
[2024-12-21 11:58] LABS: Erythrocyte Sedimentation Rate 7 MM/HR (0-15)
== END 2024-12-21 10:08 | disposition home or self-care (01) ==
LOC: HO.HHCL 10:07
PROVIDERS: Visit Provider Internal Medicine
DX: R06.02 Shortness of breath (principal)
CPT/HCPCS: 36415; 71046; 85025; 85652

== ENCOUNTER 2025-03-15 18:41 | Emergency (ER) | payer OTHER, SELFPAY ==
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
[2025-03-15 18:52] VITALS: BP 150/102; PULSE 104; O2SAT 97
[2025-03-15 19:00] VITALS: BP 146/100; PULSE 94; RESP 16; TEMP 36.3; O2SAT 97; BMI 27.4
[2025-03-15 20:50] VITALS: BP 132/99; PULSE 75; RESP 14; TEMP 36; O2SAT 100
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
[2025-03-15 23:24] VITALS: BP 118/76; PULSE 66; RESP 16; TEMP 36; O2SAT 96
--- NOTE | 2025-03-15 23:44 | PC.NURSE ---
reviewed discharge instructions with pt, pt verbalized understanding, no sign of distress.
[2025-03-15 23:52] VITALS: BP 118/76; PULSE 66; RESP 16; TEMP 36; O2SAT 96
== END 2025-03-15 23:53 | disposition home or self-care (01) ==
PROVIDERS: Emergency Provider Emergency Medicine; PCP Internal Medicine Geriatric Medicine
DX: S13.4XXA Sprain of ligaments of cervical spine, initial encounter (principal); V43.02XA Car driver injured in collision with other type car in nontraffic accident, initial encounter; M54.50 Low back pain, unspecified; Y93.89 Activity, other specified; Y92.488 Other paved roadways as the place of occurrence of the external cause; Y99.8 Other external cause status
CPT/HCPCS: 72125; 99284

== ENCOUNTER → 2025-03-15 22:24 | Outpatient (BNV) | payer OTHER, SELFPAY | PROVIDERS: Emergency Provider Emergency Medicine; PCP Internal Medicine Geriatric Medicine; Visit Provider Radiology Diagnostic Radiology | DX: M54.2 Cervicalgia (principal) | CPT/HCPCS: 72125 ==

== ENCOUNTER 2025-03-19 10:39 | Outpatient (REF) | payer OTHER, SELFPAY ==
--- NOTE | 2025-03-19 | PFT_ITS ---
Flows: FEV1: 112 % of predicted at 3.11 L FVC: 114 % of predicted at 4.01 L FEV1/FVC: 78 % Bronchodilator response: Absent Volumes: Total lung capacity: 110 % of predicted at 6.01 L Residual volume: 121 % of predicted at 2.00 L Slow vital capacity: 103 % of predicted at 4.01 L Expiratory reserve volume: 49 % of predicted at 0.43 L Diffusion capacity: Normal Impression: No obstructive or restrictive ventilatory defect. No bronchodilator response. Increased residual volume suggests air trapping. MTDD
--- OUTSIDE RECORDS SUMMARY | 2025-03-19 10:44 | XMS_ITS | Encounter Summary ---
Author Organization [employer] [facility] Address [address] [place] [address] Care Team Providers Care Architectural Draftsperson Name Role Phone Name, Homero GUILLAUME Primary Care Provider [phone] Encounter Details Date Type Department Care Team (Latest Contact Info) Description 05/04/2021 Abstract [facility] CONVERSIONS Dental, Provider, DDS Social History Tobacco Use Types Packs/Day Years Used Date Smoking Tobacco: Never Assessed Sex and Gender Information Value Date Recorded Sex Assigned at Male 06/04/2022 10:16 AM EDT Legal Sex Male 10:16 AM EDT Gender Identity Male 06/04/2022 10:16 AM EDT Sexual Orientation Lesbian or Villafuerte 06/04/2022 10 :16 AM EDT documented as of this encounter Plan of Treatment Upcoming Encounters Date Type Department Care Team ( st Contact Info) Description 04/13/2025 2:30 PM EDT Office Visit [facility] MEDICINE [address] [place] [address] NameHomero MD [address] [place] [address] documented as of this encounter Visit Diagnoses Not on filedocumented in this encounter Care Teams Architectural Draftsperson Relationship Specialty Start Date End Date Homero Sosa MD [address] [place] [address] PCP - General Family Medicine 03/25/17 documented as of this encounter
[2025-03-19 11:25] VITALS: PULSE 74; O2SAT 97
== END 2025-03-19 10:40 | disposition home or self-care (01) ==
LOC: HO.RESP 10:39
PROVIDERS: PCP Internal Medicine Geriatric Medicine; Visit Provider Internal Medicine
DX: R06.02 Shortness of breath (principal)
CPT/HCPCS: 94010; 94640; 94727; 94729

== ENCOUNTER → 2025-03-19 10:43 | Outpatient (BNV) | payer OTHER, SELFPAY | PROVIDERS: PCP Internal Medicine Geriatric Medicine; Visit Provider Internal Medicine Pulmonary Disease | DX: R06.02 Shortness of breath (principal) | CPT/HCPCS: 94060; 94727; 94729 ==

== ENCOUNTER 2025-04-14 09:59 | Outpatient (REF) | payer OTHER, SELFPAY ==
--- OUTSIDE RECORDS SUMMARY | 2025-04-13 14:30 | XMS_ITS | Encounter Summary ---
Author Organization [employer] Address [address] 7t [place] [address] Care Team Providers Care Law Enforcement Officer Name Role Phone Name, Homero GUILLAUME Primary Care Provider [phone] Reason for Visit * Reason Comments Follow-up Encounter Details Date Type Department Care Team ([facility] Contact Info) Description 04/13/2025 2:30 PM EDT Office Visit [facility] MEDICINE [address] [place] [address] Name, MD Homero [address] [place] [address] Migraine without status migrainosus, not intractable, unspecified migraine type (Primary Dx); Screening examination for STI Social History Tobacco Use Types Packs/Day Years Used Date Smoking Tobacco: Former Cigarettes Q uit: 2018 Passive Smoke Exposure: Past Smokeless Tobacco: Never Tobacco Cessation:Counseling Given: Not Answered Alcohol Use Standard Drinks/Week Comments Not Currently 0 (1 standard drink = 0.6 oz pur e alcohol) Depression Answer Date Recorded Patient Health Questionnaire-9 Score 4 12/25/2024 Patient Health Questionnaire-9 Score 4 12/25/2024 Last PHQ-9: Questionnaire Data Not on file 0 12/25/2024 Housing Stability Answer Date Recorded What is [...] Answer Date Recorded Patient Health Questionnaire-2 Score 2 12/25/2024 Internet Access Answer Date Recorded Internet Access [...] Sign Reading Time Taken Comments Blood Pressure 128/82 04/13/2025 2:59 PM EDT Pulse 105 04/13/2025 2:59 PM EDT Temperature 36.1 C (96.9 F) 04/13/2025 2:59 PM EDT Respiratory Rate 18 04/13/2025 2:59 PM EDT Oxygen Saturation 97% 04/13/2025 2:59 PM EDT Inhaled Oxygen Concentration - - Weight 69 kg (152 lb 3.2 oz) 04/13/2025 2:59 PM EDT Height 154.9 cm (5' 1 ) 04/13/2025 2:59 PM EDT Body Mass Index 28.76 04/13/2025 2:59 PM EDT documented in this encounter Progress Notes * Homero Sosa MD - 04/13/2025 2:30 PM EDT Subjective Patient ID: Gary Davis is a 59 y.o. male who presents for Follow-up. Patient comes for follow-up visit. He is asymptomatic. He explains to me that he is planning to move to [place] in the coming months. The patient tells me that he recently a female that he met many years ago. He was most recently in a relationship with a male. The patient is interested in STI testing prior to moving to [place] and I agreed. He was offered PrEP in the past but he declined use it. The patient also requested to refill his Imitrex to use as needed for migraines. He denies any recent migraines. Review of Systems Constitutional: Negative for chills, fatigue and fever. HENT: Negative for sore throat. Respiratory: Negative for cough, chest tightness and shortness of breath. Cardiovascular: Negative for chest pain, palpitations and leg swelling. Gastrointestinal: Negative for abdominal pain and blood in stool. Objective Vitals: 04/13/25 1459 BP: 128/82 BP Location: Left arm Patient Position: Sitting BP Cuff Size: Adult Pulse: 105 Resp: 18 Temp: 96.9 ??F (36.1 ??C) TempSrc: Temporal SpO2: 97% Weight: 152 lb 3.2 oz (69 kg) Height: 5' 1 (1.549 m) Physical Exam Constitutional: Appearance: Normal appearance. Cardiovascular: Rate and Rhythm: Normal rate and regular rhythm. Heart sounds: No murmur heard. Pulmonary: Effort: Pulmonary effort is normal. No respiratory distress. Breath sounds: No wheezing, rhonchi or rales. Abdominal: Palpations: Abdomen is soft. Tenderness: There is no abdominal tenderness. Musculoskeletal: Right lower leg: No edema. Left lower leg: No edema. Neurological: Mental Status: He is alert. Assessment/Plan Diagnoses and all orders for this visit: Migraine without status migrainosus, not intractable, unspecified migraine type Comments: I refilled Imitrex to use as needed. He does not have frequent migraines so I did not prescribe preventative medication Screening examination for STI Comments: He is recommend evaluation with testing listed below. We discussed importance of using condoms for STI prevention. Orders: - HIV-1/2 Antigen and Antibodies, Fourth Generation, with Reflexes; Future - RPR (Monitor) with Reflex to Titer; Future - Hepatitis C Antibody with Reflex to HCV, RNA, Quantitative, Real-Time PCR; Future - Hepatitis B surface antigen, EIA; Future - Hepatitis B Surface Antibody, Qualitative; Future - Chlamydia/N. Gonorrhoeae RNA, TMA, Vaginal Other orders - SUMAtriptan (Imitrex) 25 MG tablet; Take 1 tablet (25 mg) by mouth 1 (one) time if needed for migraine for up to 1 dose. May repeat dose once in 2 hours if no relief. Do not exceed 2 doses in 24 hours. documented in this encounter Plan of Treatment Upcoming Encounters Date Type Department Care Team (Late st Contact Info) Description 07/07/2025 3:30 PM EST Office Visit [facility] MEDICINE [address] [place] [address] Name, MD Homero [address] [place] [address] Scheduled Orders Name Type Priority Associated Diagnoses Orde r Schedule HIV-1/2 Antigen and Antibodies, Fourth Generation, with Reflexes Lab Routine Screening examination for STI Expected: 04/13/2025 (Approximate), Expires: 04/13/2026 RPR (Monitor) with Reflex to Titer Lab Routine Screening examination for STI Expected: 04/13/2025, Expires: 04/13/2026 Hepatitis C Antibody with Reflex to HCV, RNA, Quantitative, Real-Time PCR Lab Routine Screening examination for STI Expected: 04/13/2025, Expires: 04/13/2026 Hepatitis B surface antigen, EIA Lab Routine Screening examination for STI Expected: 04/13/2025 (Approximate), Expires: 04/13/2026 Hepatitis B Surface Antibody, Qualitative Lab Routine Screening examination for STI Expected: 04/13/2025 (Approximate), Expires: 04/13/2026 Chlamydia/N. Gonorrhoeae RNA, TMA, Vaginal Microbiology Routine Screening examination for STI Ordered: 04/13/2025 documented as of this encounter Goals Goal Patient Goal Type Associated Problems Recent Progress Patient-Stated? Author Patient will continue to adhere to medication regimen General Saige Hernandez Keep your medical appointments Lifestyle Saige Hernandez documented as of this encounter Visit Diagnoses Diagnosis Migraine without status migrainosus, not intractable, unspecified migraine type- Primary Screening examination for STI documented in this encounter Additional Health Concerns Assessment Noted Time PHQ-9 Depression Total Score: 4 12/26/19 25 10:55 AM EDT documented as of this encounter Care Teams Law Enforcement Officer Relationship Specialty Start Date End Date Name, MD Homero [address] [place] [address] PCP - General Family Medicine 03/25/17 documented as of this encounter
--- OUTSIDE RECORDS SUMMARY | 2025-04-14 12:04 | XMS_ITS | Encounter Summary ---
Author Organization [email or web address] [facility] Address [address] [place] [address] 7 [place] [address] Care Team Providers Care Humane Agent Name Role Phone Name, Homero GUILLAUME Primary Care Provider [phone] Reason for Visit * Reason Comments Med Refill Encounter Details Date Type Department Care Team (Late Contact Info) Description 07/09/2022 Refill [facility] MEDICINE [address] [place] [address] NameHomero MD [address] [place] [address] Social History Tobacco Use Types Packs/Day Years [...] Encounters Date Type Department Care Team (Late Contact Info) Description 07/07/2025 3:30 PM EST Office Visit [facility] MEDICINE [address] [place] [address] NameHomero MD [address] [place] [address] documented as of this encounter Visit Diagnoses Not on filedocumented in this encounter Care Teams Humane Agent Relationship Specialty Start Date End Date NameHomero MD [address] [place] [address] PCP - General Family Medicine 03/25/17 documented as of this encounter
--- OUTSIDE RECORDS SUMMARY | 2025-04-14 12:04 | XMS_ITS | Encounter Summary ---
Author Organization [employer] Address [address] [employer] [address] 7 [place] [address] Care Team Providers Care Hospitalist Medical Director Name Role Phone Name, Homero GUILLAUME Primary Care Provider [phone] Encounter Details Date Type Department Care Team (Latest Contact Info) Description 05/04/2021 Abstract [facility] CONVERSIONS Dental, Provider, DDS Social History Tobacco [...] Description 07/07/2025 3:30 PM EST Office Visit [facility] MEDICINE [address] [place] [address] NameHomero MD [address] [place] [address] documented as of this encounter Visit Diagnoses Not on filedocumented in this encounter Care Teams Hospitalist Medical Director Relationship Specialty Start Date End Date Homero Sosa MD [address] [place] [address] PCP - General Family Medicine 03/25/17 documented as of this encounter
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
--- OUTSIDE RECORDS SUMMARY | 2025-04-14 12:04 | XMS_ITS | Encounter Summary ---
Author Organization [employer] Address [address] [facility] 7t [place] [address] Care Team Providers Care Gas Well Pumper Name Role Phone Name, Homero GUILLAUME Primary Care Provider Reason for Visit * Reason Onset Date Comments Referral 08/22/2023 Encounter Details Date Type Department Care Team ([facility] Contact Info) Description 08/22/2023 Telephone [facility] MEDICINE [address] [place], [place] [phone] Name, MD Homero [address] [place] [address] Referral Social History Tobacco Use Types Packs/Day [...] AM EST FYI T/C to pt. Through [employer] id - [id number] to inquiry why pt. Is looking for eye care referral, No answer. LVM to call back on [phone]. * Telephone Encounter - Regina Castaneda - 08/22/2023 2:33 PM EST Referral Specialty:Eye center Location: [facility] Date&Time: N/a [employer] Officer:no documented in this encounter Plan of Treatment Upcoming Encounters Date Type Department Care Team ([facility] Contact Info) Description 07/07/2025 3:30 PM EST Office Visit [facility] MEDICINE [address] [place] [address] Name, MD Homero [address] [place] [address] documented as of this encounter Goals Goal [...] documented as of this encounter Care Teams Gas Well Pumper Relationship Specialty Start Date End Date Name, MD Homero [address] [place] [address] PCP - General Family Medicine 03/25/17 documented as of this encounter
--- OUTSIDE RECORDS SUMMARY | 2025-04-14 12:04 | XMS_ITS | Encounter Summary ---
Author Organization [email or web address] Address [address] [facility] 7t [place] [address] Care Team Providers Care Founder Chairman And Chief Creative Officer Name Role Phone Name, Homero GUILLAUME Primary Care Provider [phone] Encounter Details Date Type Department Care Team (Latest Contact Info) Description 04/13/2025 Travel Social History Tobacco Use Types Packs/Day [...] Visit [facility] MEDICINE [address] [place] [address] NameHomero MD [address] [place] [address] documented as of this encounter Goals Goal [...] documented as of this encounter Care Teams Founder Chairman And Chief Creative Officer Relationship Specialty Start Date End Date NameHomero MD [address] [place] [phone] PCP - General Family Medicine 03/25/17 documented as of this encounter
--- OUTSIDE RECORDS SUMMARY | 2025-04-14 12:04 | XMS_ITS | Encounter Summary ---
Author Organization [employer] Address [address] [facility] 7t [place] [address] Care Team Providers Care Rn Acls Name Role Phone Name, Homero GUILLAUME Primary Care Provider [phone] Reason for Visit * Reason Onset Date Comments ER Follow-up 09/17/2024 Nurse Triage 09/17/2024 Encounter Details Date Type Department Care Team ([facility] Contact Info) Description 09/17/2024 Telephone [facility] MEDICINE [address] [place] [phone] Name, MD Homero [address] [place] [address] ER Follow-up; Nurse Triage Social History Tobacco [...] your housing situation today? I have darryl linsey 03/17/[address] you li [...] ED visit on : Date: 09/14 [facility]: [facility] Seen for: Pharyngitis Symptomatic Yes *if yes message should go to Triage Patient advised will forward to team nurse for follow up [phone] kenyan documented in this encounter Plan of Treatment Upcoming Encounters Date Type Department Care Team (Late st Contact Info) Description 07/07/2025 3:30 PM EST Office Visit [facility] MEDICINE [address] [place] [address] Name, MD Homero [address] [place] [address] documented as of this encounter Goals Goal [...] documented as of this encounter Care Teams Rn Acls Relationship Specialty Start Date End Date Name, MD Homero [address] [place] [address] PCP - General Family Medicine 03/25/17 documented as of this encounter
--- OUTSIDE RECORDS SUMMARY | 2025-04-14 12:04 | XMS_ITS | Encounter Summary ---
Author Organization [employer] Address [address] [facility] 7t [place] [address] Care Team Providers Care Helper Maintenance Cleaning Name Role Phone Name, Homero GUILLAUME Primary Care Provider [phone] Encounter Details Date Type Department Care Team (Late Contact Info) Description 10/15/2022 Abstract [facility] [address] [place] [address] Name, MD Homero [address] [place] [address] Social History Tobacco Use Types Packs/Day Years [...] Description 07/07/2025 3:30 PM EST Office Visit [facility] MEDICINE [address] [place] [address] Name, MD Homero [address] [place] [address] documented as of this encounter Visit Diagnoses Not on filedocumented in this encounter Care Teams Helper Maintenance Cleaning Relationship Specialty Start Date End Date Name, MD Homero [address] [facility] [place] [address] PCP - General Family Medicine 03/25/17 documented as of this encounter
--- OUTSIDE RECORDS SUMMARY | 2025-04-14 12:04 | XMS_ITS | Encounter Summary ---
Author Organization [employer] Address [address] [facility] 7t [place] [address] Care Team Providers Care Apple Thinner Name Role Phone Name, Homero GUILLAUME Primary Care Provider [phone] Reason for Visit * Reason Onset Date Comments rs missed appt 09/11/2024 Encounter Details Date Type Department Care Team ([facility] st Contact Info) Description 09/11/2024 Telephone [facility] [address] [place] [address] Reinier, Mariama [address] [place] [address] rs missed appt Social History Tobacco Use [...] Description 07/07/2025 3:30 PM EST Office Visit [facility] MEDICINE [address] [place] [address] NameHomero MD [address] [place] [address] documented as of this encounter Goals Goal [...] documented as of this encounter Care Teams Apple Thinner Relationship Specialty Start Date End Date Homero Sosa MD [address] [place] [address] PCP - General Family Medicine 03/25/17 documented as of this encounter
--- OUTSIDE RECORDS SUMMARY | 2025-04-14 12:04 | XMS_ITS | Encounter Summary ---
Author Organization [employer] Address [address] [facility] 7t [place] [address] Care Team Providers Care Automotive Quality Engineer Name Role Phone Name, Homero GUILLAUME Primary Care Provider [phone] Reason for Visit * Reason Onset Date Comments CHARTPREP 04/09/2025 Encounter Details Date Type Department Care Team ([facility] st Contact Info) Description 04/09/2025 Telephone [facility] MEDICINE [address] [place] [address] Name, MD Homero [address] [place] [address] CHARTPREP Social History Tobacco Use Types Packs/Day Years [...] encounter Miscellaneous Notes * Telephone Encounter - Oriana Crocker [place] - 04/09/2025 2:45 PM EDT Chart Prep Labs: done Images: done Referrals: complete Vaccines due: Flu and Hep A Screenings: Anal pap Overdue care gaps: SBIRT, SDOH, and Oral health screening documented in this encounter Plan of Treatment Upcoming Encounters Date Type Department Care Team (Late st Contact Info) Description 07/07/2025 3:30 PM EST Office Visit [facility] MEDICINE [address] [place] [address] Name, MD Homero [address] [place] [address] documented as of this encounter Goals Goal [...] documented as of this encounter Care Teams Automotive Quality Engineer Relationship Specialty Start Date End Date Name, MD Homero [address] [place] [address] PCP - General Family Medicine 03/25/17 documented as of this encounter
--- OUTSIDE RECORDS SUMMARY | 2025-04-14 12:04 | XMS_ITS | Encounter Summary ---
Author Organization [employer] Address [address] [facility] 7t [place] [address] Care Team Providers Care Sound Controller Name Role Phone Name, Homero GUILLAUME Primary Care Provider [phone] Reason for Referral * PFT (Routine) - Pending Review Specialty Diagnoses / Procedures Referred By Contac t Referred To Contact Diagnoses SOB (shortness of breath) Procedures Pulmonary Function Test Raudel Howard MD [address] [place] [address] Phone: tel: fax: [address] Phone: tel: fax: Referral ID Status Reason Start Date Expiration Date V isits Requested Visits Authorized [id number] Pending Review 12/21/2024 12/21/2025 1 1 Encounter Details Date Type Department Care Team (Late st Contact Info) Description 12/21/2024 Orders Only [facility] MED & PEDS [address] [place] [address] Raudel Howard MD [address] [place], [place] [phone] SOB (shortness of breath) (Primary Dx) Social History Tobacco Use Types Packs/Day Years [...] Description 07/07/2025 3:30 PM EST Office Visit [facility] MEDICINE [address] [place] [address] Name, MD Homero [address] [place] [address] Scheduled Orders Name Type Priority Associated Diagnoses Orde r Schedule Pulmonary Function Test PFT Routine SOB (shortness of breath) Expected: 12/21/2024, Expires: 06/23/2025 documented as of this encounter Goals Goal Patient Goal Type Associated Problems Recent Progress Patient-Stated? Author Patient will continue to adhere to medication regimen General No Saige English Keep your medical appointments Lifestyle No Saige English documented as of this encounter Visit Diagnoses Diagnosis SOB (shortness of breath)- Primary Shortness of breath documented in this encounter Additional Health Concerns Assessment Noted Time PHQ-9 Depression Total Score: 0 03/17/20 24 1:42 PM EDT documented as of this encounter Care Teams Sound Controller Relationship Specialty Start Date End Date Name, MD Homero [address] [place] [address] PCP - General Family Medicine 03/25/17 documented as of this encounter
--- OUTSIDE RECORDS SUMMARY | 2025-04-14 12:04 | XMS_ITS | Encounter Summary ---
Author Organization [employer] Address [address] [facility] 7t [place] [address] Care Team Providers Care Telephoto Engineer Name Role Phone Name, Homero GUILLAUME Primary Care Provider [phone] Encounter Details Date Type Department Care Team ([facility] Contact Info) Description 01/14/2023 Abstract [facility] MEDICINE [address] [place] [phone] Name, MD Homero [address] [place] [phone] Social History Tobacco Use Types Packs/Day Years [...] Upcoming Encounters Date Type Department Care Team ([facility] Contact Info) Description 07/07/2025 3:30 PM EST Office Visit [address] [phone] Name, MD Homero [address] [place] [address] [phone] documented as of this encounter Procedures Procedure Name Priority Date/Time Associated Diagnosis Comments COLONOSCOPY Routine 08/25/2018 12:32 PM EST documented in this encounter Results * Colonoscopy (08/25/2018 12:32 PM EST) Colonoscopy Normal Normal Narrative Ilana Torres - 08/25/2018 12:32 PM EST Recommended 10 year follow up([facility]) us Historical Provider HEALTH MAINTENANCE Final Result documented in this encounter Visit Diagnoses Not on filedocumented in this encounter Care Teams Telephoto Engineer Relationship Specialty Start Date End Date Name, MD Homero [address] [facility] [place] [address] PCP - General Family Medicine 03/25/17 documented as of this encounter
--- OUTSIDE RECORDS SUMMARY | 2025-04-14 12:04 | XMS_ITS | Encounter Summary ---
Author Organization [employer] Address [address] [facility] 7[address] [place] [address] Care Team Providers Care Hand Trucker Name Role Phone Name, Homero GUILLAUME Primary Care Provider [phone] Reason for Visit * Reason Comments Med Refill Encounter Details Date Type Department Care Team ([facility] Contact Info) Description 03/31/2023 Refill [facility] MEDICINE [address] [place] [phone] NameHomero MD [address] [place] [phone] Social History Tobacco Use Types Packs/Day Years [...] Upcoming Encounters Date Type Department Care Team ([facility] Contact Info) Description 07/07/2025 3:30 PM EST Office Visit [facility] MED[facility]INE [address] [place] [address] NameHomero MD [address] [place] [address] documented as of this encounter Visit Diagnoses Not on filedocumented in this encounter Additional Health Concerns Assessment Noted Time PHQ-9 Depression Total Score: 0 02/12/20 23 1:21 PM EDT documented as of this encounter Care Teams Hand Trucker Relationship Specialty Start Date End Date Name, MD Homero [address] [place] [address] PCP - General Family Medicine 03/25/17 documented as of this encounter
--- OUTSIDE RECORDS SUMMARY | 2025-04-14 12:04 | XMS_ITS | Encounter Summary ---
Author Organization [employer] Address [address] [facility] 7t [place] [address] Care Team Providers Care Wrap Turner Name Role Phone Name, Homero GUILLAUME Primary Care Provider [phone] Encounter Details Date Type Department Care Team ([facility] Contact Info) Description 03/21/2023 Orders Only [facility] MED & PEDS [address] [place], [place] [phone] Virginia White LPN Social History Tobacco Use [...] Upcoming Encounters Date Type Department Care Team ([facility] Contact Info) Description 07/07/2025 3:30 PM EST Office Visit [facility] MEDICINE [address] [place], [place] [phone] NameHomero MD [address] [place] [address] documented as of this encounter Procedures Procedure [...] (SLATER) (06/01/2023 6:34 PM EDT) IDNOW SERIAL# [id number] [facility] COVID-19 TEST Negative Negative [facility] COVID-19 NOTE See Note [facility] Comment: Results are for the identification of SARS-CoV2 RNA. TheSARS-CoV2 RNA is generally detectable in respiratory samplesduring the acute phase of infection. Positive results areindicative of the presence of SARS-CoV-2 RNA; clinicalcorrelation with patient history and other diagnosticinformation is necessary to determine patient infectionstatus. Positive results do not rule out bacterial infectionor co- infection with other viruses.Testing facilities within the [facility] and itsterritories are required to report all positive results [...] 6:34 PM EDT 06/01/2023 6:42 PM EDT [facility] Provider LAB MOLECULAR DIAGNOSTICS ORDERABLES Final Result Performing Organization Address [facility] de Phone Number [facility] [address] [place] [address] [phone] * Influenza A B2 ID NOW (Slater) (06/01/2023 6:34 PM EDT) IDNOW SERIAL# [id number] [facility] Influenza A Negative Negative [facility] Influenza B2 Negative Negative [facility] Influenza A B2 Note See Note [facility] Comment:The Slater ID NOW In fluenza [...] 6:34 PM EDT 06/01/2023 6:42 PM EDT [facility] Provider LAB MICROBIOLOGY - GENERAL ORDERABLES Final Result Performing Organization Address [facility] Co de Phone Number [facility] [address] [place] [address] [phone] * Lipase (06/01/2023 6:34 PM EDT) Lipase 21 8 - 78 U/L [facility] 06/01/2023 6:34 PM EDT 06/01/2023 6:42 PM EDT Generic External Data Provider LAB BLOOD ORDERAB LES Final Result [facility] [address] [place] [address] [phone] * (ABNORMAL) Comprehensive Metabolic Panel (06/01/2023 6:34 PM EDT) Sodium 139 135 - 145 mmol/L [facility] Potassium 4.2 3.3 - 5.1 mmol/L [facility] Chloride 105 96 - 108 mmol/L [facility] Carbon Dioxide 25 22 - 29 mmol/L [facility] Anion Gap 13 12 - 20 [facility] Urea Nitrogen (BUN) 10 9 - 16 mg/dL [facility] Creatinine, Serum 1.16 0.5 - 1.4 mg/dL [facility] Creatinine Clr Calc Pharmacy 54.9 [facility] Comment:eGFR (calculated fro m the MDRD study equation) and eCrCl(calculated from the Cockcroft-Gault equation) are based ondifferent parameters and may not yield comparable results.If eCrCl result is absurd, please check patient'sheight/weight. Estimated Glomerular Filt Rate >60 [facility] Comment:NOTE: For -Am erican individuals, multiply the result by 1.210.Chronic Kidney Disease: Estimated GFR < 60 mL/min/1.78r4Hspwdd Kidney Disease: Estimated GFR < 15 mL/min/1.73m2 Glucose 120(H) 60 - 115 mg/dL [facility] Calcium 9.3 8.4 - 10.2 mg/dL [facility] Bilirubin, Total 0.5 0.0 - 1.0 mg/dL [facility] Aspartate Amino Transferase 23 5 - 37 U/L [facility] Alanine Aminotransferase 18 0 - 40 U/L [facility] Total Protein 7.3 6.5 - 8.0 g/dL [facility] Albumin Level 4.2 3.5 - 5.0 g/dL [facility] Alkaline Phosphatase 78 39 - 117 U/L [facility] 06/01/2023 6:34 PM EDT 06/01/2023 6:42 PM EDT [facility] External Provider LAB BLO OD ORDERABLES Final Result Performing Organization Address [facility] Co de Phone Number [facility] [address] [place] [phone] * Prothrombin Time-INR (06/01/2023 6:34 PM EDT) [facility] Prothrombin Time 11.4 11.1 - 13.3 SEC [facility] INTERNATIONAL NORM RATIO 0.9 0.9 - 1.1 [facility] Comment:INTERNATIONAL NORMAL IZED RATIO (INR) REFERENCE [...] 6:34 PM EDT 06/01/2023 6:42 PM EDT [facility] External Provider LAB BLO OD ORDERABLES Final Result Performing Organization Address [facility] de Phone Number [facility] [address] [place] [phone] * (ABNORMAL) CBC auto differential (06/01/2023 6:34 PM EDT) [facility] White Blood Count 8.1 4.8 - 10.8 X10*3/uL [facility] Red Blood Count 4.64 4.60 - 5.80 X10*6/uL [facility] Hemoglobin 13.1(L) 14.0 - 18.0 g/dl [facility] Hematocrit 39.3(L) 42.0 - 52.0 % [facility] Mean Corpuscular Volume 84.7 80.0 - 98.0 fL [facility] Mean Corpuscular Hemoglobin 28.2 27.0 - 33.0 pg [facility] Mean Corpuscular HGB Conc 33.3 31.0 - 36.0 g/dl [facility] Red Cell Distribution Width 13.1 11.0 - 16.0 % [facility] Platelet Count 232 160 - 400 X10*3/uL [facility] Mean Platelet Volume 8.8(L) 9.4 - 12.4 fL [facility] Neutrophils Percent Auto 60.0 45 - 73 % [facility] Imm Gran Pct Auto 0.2 0.0 - 0.4 % [facility] Lymphocytes Percent Auto 28.3 20 - 40 % [facility] Monocytes Percent Auto 8.5 2 - 11 % [facility] Eosinophils Percent Auto 2.3 0 - 4 % [facility] Basophils Percent Auto 0.7 0 - 2 % [facility] NRBC Pct Auto 0.0 0.0 - 0.2 /100WBC [facility] Neutrophils Absolute Auto 4.8 2.0 - 8.3 x10*3/uL [facility] Imm Gran Abs Auto 0.02 0.00 - 0.03 X10*3/uL [facility] Lymphocytes Absolute Auto 2.3 1.2 - 4.9 X10*3/uL [facility] Monocytes Absolute Auto 0.7 0.1 - 1.2 X10*3/uL [facility] Eosinophils Absolute Auto 0.2 0.0 - 0.4 X10*3/uL [facility] Basophils Absolute Auto 0.1 0.0 - 0.2 X10*3/uL [facility] NRBC Abs Auto 0.000 0.0 - 0.012 X10*3/uL [facility] 06/01/2023 6:34 PM EDT 06/01/2023 6:42 PM EDT us [facility] External Provider LAB BLO OD ORDERABLES Final Result [facility] [address] [place] [phone] [phone] documented in this encounter Visit Diagnoses Not on filedocumented in this encounter Additional Health Concerns Assessment Noted Time PHQ-9 Depression Total Score: 0 02/12/20 23 1:21 PM EDT documented as of this encounter Care Teams Wrap Turner Relationship Specialty Start Date End Date Name, MD Homero [address] [place] [address] PCP - General Family Medicine 03/25/17 documented as of this encounter
--- OUTSIDE RECORDS SUMMARY | 2025-04-14 12:05 | XMS_ITS | Encounter Summary ---
Author Organization [employer] Address [address] [place] [address] 7 [place] [address] Care Team Providers Care Bindery Machine Tender Name Role Phone NameHomero MD Primary Care Provider [phone] Encounter Details Date Type Department Care Team (Late st Contact Info) Description 10/05/2022 Telephone [facility] MEDICINE [address] [place] [phone] Nati Rivera LPN Social History Tobacco Use [...] Description 07/07/2025 3:30 PM EST Office Visit [facility] MEDICINE [address] [place] [phone] Homero Sosa MD [address] [place] [phone] documented as of this encounter Visit Diagnoses Not on filedocumented in this encounter Care Teams Bindery Machine Tender Relationship Specialty Start Date End Date Homero Sosa MD [address] [place] [phone] PCP - General Family Medicine 03/25/17 documented as of this encounter
--- OUTSIDE RECORDS SUMMARY | 2025-04-14 12:05 | XMS_ITS | Encounter Summary ---
Author Organization [employer] Address [address] [facility] 7t [place] [address] Care Team Providers Care Customer Success Intern Name Role Phone Name, Homero GUILLAUME Primary Care Provider [phone] Reason for Visit * Reason Onset Date Comments Durable Medical Equipment 11/05/2022 Encounter Details Date Type Department Care Team ([facility] st Contact Info) Description 11/05/2022 Telephone [facility] MEDICINE [address] [place] [phone] Name, MD Homero [address] [place] [phone] Durable Medical Equipment Social History Tobacco Use [...] Miscellaneous Notes * Telephone Encounter - Kristian Freeman Annie - 11/05/2022 10:42 AM EDT Tc from Demetrice Blanca with [facility] Network Support Administrator requesting a new script for CPAP supplies. Demetrice states that pt informed that facility informed that medical supplies for machine are not yet receive until 11/19/2022 of [facility]. Please contact Demetrice at [phone] to Confirm documented in this encounter Plan of Treatment Upcoming Encounters Date Type Department Care Team (Late st Contact Info) Description 07/07/2025 3:30 PM EST Office Visit [facility] MEDICINE [address] [place] [address] Name, MD Homero [address] [place] [phone] documented as of this encounter Visit Diagnoses Not on filedocumented in this encounter Care Teams Customer Success Intern Relationship Specialty Start Date End Date Name, MD Homero [address] [place] [address] PCP - General Family Medicine 03/25/17 documented as of this encounter
[2025-04-14 13:14] LABS: HBS Num1 85.47 mIU/mL (0-7.99); HBsAGNum1 0.44 S/CO (0.00-0.99); HIV Num 1 0.06 S/CO (0.00-0.99); Hepatitis B Surface Antigen Negative (Negative); ~HepC Num1 0.10 S/CO (0.00-0.79); ~Hepatitis B Surface Antibody REACTIVE (Nonreactive); ~Hepatitis C Antibody Nonreactive (Nonreactive)
== END 2025-04-14 10:00 | disposition home or self-care (01) ==
LOC: HO.HHCL 09:59
PROVIDERS: PCP Internal Medicine Geriatric Medicine; Visit Provider Internal Medicine Geriatric Medicine
DX: Z11.3 Encounter for screening for infections with a predominantly sexual mode of transmission (principal); Z11.4 Encounter for screening for human immunodeficiency virus [HIV]; Z11.59 Encounter for screening for other viral diseases
CPT/HCPCS: 36415; 86592; 86706; 86803; 87340; 87389

== ENCOUNTER 2025-05-02 00:50 | Emergency (ER) | payer OTHER, SELFPAY ==
--- NOTE | ~2025-05-02 | CT_ITS ---
CLINICAL HISTORY: Stroke Protocol - acute onset dizziness CT angiography head and neck with contrast. 3D Postprocessing. Comparison: None provided Findings: Aortic arch and cervical great vessels are patent with no aneurysm, dissection, hemodynamically significant stenoses, or occlusion. Intracranial arteries are patent. No aneurysm, dissection, hemodynamically significant stenoses, or occlusion. No abnormal intracranial enhancement. The visualized thyroid gland is unremarkable. No cervical mass or fluid collection. Lung apices clear. No acute fracture. IMPRESSION: Patent head and neck CTA. This document has been electronically signed by: Cali Palomino MD on 05/02/2025 02:56:52
--- NOTE | ~2025-05-02 | CT_ITS ---
CLINICAL HISTORY: Stroke Protocol - acute onset dizziness CT head without contrast Comparison: CT/REG/SR - CT HEAD/BRAIN WO IV CON - 09/10/23 17:48 EST Findings: No intra-axial mass, midline shift, hydrocephalus, or acute hemorrhage. No significant atrophy-like change or white matter disease. The visualized paranasal sinuses and mastoid air cells are normal. The orbits are within normal limits. There is no acute fracture. IMPRESSION: 1. No acute intracranial findings. This document has been electronically signed by: Cali Palomino MD on 05/02/2025 01:33:30
--- NOTE | ~2025-05-02 | XR_ITS ---
CLINICAL HISTORY: Stroke Protocol - acute onset dizziness 1 view chest x-ray Comparison: Chest radiograph 12/21/2024 Findings: The lungs are clear. Heart size is normal. No acute fracture. IMPRESSION: 1. No acute findings. This document has been electronically signed by: Cali Palomino MD on 05/02/2025 02:55:26
--- NOTE | 2025-05-02 00:58 | ECG_ITS ---
Test Reason : DIZZINESS Blood Pressure : */* mmHG Vent. Rate : 76 BPM Atrial Rate : 76 BPM P-R Int : 166 ms QRS Dur : 96 ms QT Int : 396 ms P-R-T Axes : 75 62 43 degrees QTcB Int : 445 ms Normal sinus rhythm Incomplete right bundle branch block Borderline ECG When compared with ECG of 10-Sep-2023 14:23, No significant change was found Referred By: Wendy Cardona Electronically Signed By: Dayne Pinedo
[2025-05-02 00:59] VITALS: BMI 28.0
--- NOTE | 2025-05-02 00:59 | ED.DIZZY ---
HPI - Dizziness General Chief Complaint: Stroke Stated Complaint: Dizziness Time Seen by Provider: 05/02/25 00:58 History of Present Illness HPI Narrative: Patient is a 59-year-old male with a history of vertigo was seen a couple of days ago today at approximately 23:00 had sudden onset of spinning sensation extreme worse when he moves. Worse when he turns his head. Patient denies any chest pain any shortness of breath any diaphoresis had extreme nausea vomiting. The symptom is improved with staying still he was prescribed Antivert but was unable to take the medication. Came in for further evaluation. Sugar was noted Related Data Home Medications ?Medication ?Instructions ?Recorded ?Confirmed diphenhydramine HCl 25 mg tablet 25 mg PO BEDTIME 12/22/20 fluoxetine 20 mg capsule 20 mg PO QAM 12/22/20 gabapentin 100 mg capsule 100 mg PO TID 12/22/20 guaifenesin 100 mg/5 mL oral liquid 200 mg PO Q4H PRN 12/22/20 loratadine 10 mg tablet 10 mg PO DAILY 12/22/20 lorazepam 0.5 mg tablet 0.5 mg PO DAILY 12/22/20 meclizine 25 mg tablet 25 mg PO TID PRN 12/22/20 naproxen 500 mg tablet 500 mg PO BID 12/22/20 triamcinolone acetonide 0.1 % 3 topical Q OTHER DAY PRN 12/22/20 topical ointment zolpidem 10 mg tablet 10 mg PO BEDTIME PRN 12/22/20 atorvastatin 20 mg tablet 20 mg PO DAILY 08/15/22 emtricitabine 200 mg-tenofovir 1 tab PO DAILY 08/15/22 alafenamide fumarate 25 mg tablet (Descovy) mdtztqev-cgs-wzfjt acid 0.4 1 tab PO DAILY 08/16/23 mg-lycopene 300 mcg-lutein 250 mcg tablet (Cerovite Senior) Previous Rx's ?Medication ?Instructions ?Recorded cyclobenzaprine 5 mg tablet 5 mg PO TID PRN muscle spasm #10 06/15/23 tabs acetaminophen 500 mg tablet 1,000 mg (2 x 500 mg) PO Q6H PRN 08/04/23 (Tylenol Extra Strength) fever or pain #20 tabs ibuprofen 400 mg tablet 400 mg PO TID PRN fever or pain 08/04/23 #30 tabs docusate sodium 100 mg capsule 100 mg PO QAM #30 caps 12/11/24 (Stool Softener) omeprazole 20 mg capsule,delayed 20 mg PO QAM #30 caps 12/11/24 release sennosides 8.6 mg tablet (senna) 17.2 mg (2 x 8.6 mg) PO BEDTIME 12/11/24 PRN for constipation #60 tabs meclizine 25 mg tablet 25 mg PO QID PRN dizziness #20 tabs 05/02/25 Allergies Allergy/AdvReac Type Severity Reaction Status Date / Time No Known Allergies (No Known Allergy Verified 05/02/25 01:08 Allergies*) Review of Systems Review of Systems: Positive sudden onset of dizziness spinning Yes all other systems are reviewed and are negative [facility] Past Medical History Attestation statement: The following information was validated with the patient. Medical History Depression Surgical History History of esophagogastroduodenoscopy Hx of colonoscopy Family History Family History Father No problems noted. Mother No problems noted. Sister Liver cancer Brother Cancer Social History Social History Household Members: None Housing: Apartment Alcohol intake: former Years Smoked: 5 Smoked in Last 30 Days: No Use of substances other than those prescribed or required for medical reasons: No Substance Use Type: Marijuana Advance Directives: No Physical Exam Vital Signs: Vital Signs: Last Vital Signs Temp 97.8 F 05/02/25 01:23 Pulse 74 05/02/25 01:23 Resp 13 05/02/25 01:23 BP 149/99 H 05/02/25 01:23 Pulse Ox 93 05/02/25 01:23 O2 Del Method Room Air 05/02/25 01:23 BMI result Body Mass Index 28.0 NIH Stroke Scale Internal: Initial- Upon Arrival Time: 01:00 Level of Consciousness: Alert Level of Consciousness Questions: Answers both questions correctly Level of Consciousness Commands: Performs both tasks correctly Best Gaze: Normal Visual: No visual loss Facial Palsy: Normal Motor Arm (Right): No drift Motor Arm (Left): No drift Motor Leg (Right): No drift Motor Leg (Left): No drift Limb Ataxia: Absent Sensory: Normal Best Language: No aphasia Dysarthia: Normal Extinction and Inattention: No abnormality Score: 0 Medications Administered Discontinued Medications Generic Name Dose Route Start Last Admin Trade Name Avel PRN Reason Stop Dose Admin Sodium Chloride 1,000 mls @ 999 mls/hr 05/02/25 01:00 05/02/25 03:00 Ns IV 05/02/25 02:00 Infused .Q1H1M SOMMER Infusion Iohexol 70 ml 05/02/25 01:14 05/02/25 01:14 Iohexol 350 Mg/Ml 100 Ml Infus..Btl IV 05/02/25 01:15 70 ml ONCE ONE Administration Meclizine HCl 25 mg 05/02/25 00:58 05/02/25 01:38 Meclizine Hcl 25 Mg Tablet PO 05/02/25 00:59 25 mg ONCE ONE Administration Ondansetron HCl 4 mg 05/02/25 00:58 05/02/25 01:38 Ondansetron Hcl 4 Mg/2 Ml Vial IVPUSH 05/02/25 00:59 4 mg ONCE ONE Administration Medical Decision Making Medical Decision Making MDM Narrative: Well-appearing patient's symptoms reproduced with turning his head to the left side. Patient NIH stroke scale was 0. I felt patient's symptoms more so anonymous with having peripheral vertigo as it was extremely sudden abrupt in onset. The condition of nausea vomiting was extreme. Antivert will be started. Labs ordered. Patient to be monitored. I received sign-out from my colleague Dr. Cardona CTA does not show any acute abnormality. patient was ambulated around the emergency room, patient had normal steady gait. Differential Diagnosis Differential Diagnoses: The differential diagnosis associated with the presentation includes ( TIA, vertigo, BPPV) Vertigo Admission/Observation Consideration of admission/observation: Escalation of care including admission/observation considered Lab Data 05/02/25 01:29 05/02/25 01:29 Labs: Lab Results 05/02/25 05/02/25 Range/Units 00:54 01:29 WBC 8.4 (4.8-10.8) X10*3/uL RBC 4.12 L (4.60-5.80) X10*6/uL Hgb 11.7 L (14.0-18.0) g/dl Hct 34.3 L (42.0-52.0) % MCV 83.3 (80.0-98.0) fL MCH 28.4 (27.0-33.0) pg MCHC 34.1 (31.0-36.0) g/dl RDW 13.4 (11.0-16.0) % Plt Count 187 (160-400) X10*3/uL MPV 8.9 L (9.4-12.4) fL Immature Gran % (Auto) 0.4 (0.0-0.4) % Neut % (Auto) 55.5 (45-73) % Lymph % (Auto) 32.2 (20-40) % [place] % (Auto) 9.5 (2-11) % Eos % (Auto) 1.7 (0-4) % Baso % (Auto) 0.7 (0-2) % Lymph # (Auto) 2.7 (1.2-4.9) X10*3/uL [place] # (Auto) 0.8 (0.1-1.2) X10*3/uL Eos # (Auto) 0.1 (0.0-0.4) X10*3/uL Baso # (Auto) 0.1 (0.0-0.2) X10*3/uL Abs Immat Gran (auto) 0.03 (0.00-0.03) X10*3/uL Absolute Neuts (auto) 4.7 (2.0-8.3) x10*3/uL Absolute Nucleated RBC 0.000 (0.0-0.012) X10*3/uL Nucleated RBC % (auto) 0.0 (0.0-0.2) /100WBC PT 11.2 (10.9-12.4) SEC INR 1.0 (0.9-1.1) APTT 29.0 (26.7-34.1) SEC Sodium 140 (135-145) mmol/L Potassium 3.6 (3.3-5.1) mmol/L Chloride 105 (96-108) mmol/L Carbon Dioxide 27 (22-29) mmol/L Anion Gap 12 (12-20) BUN 10 (9-16) mg/dL Creatinine 1.22 (0.5-1.4) mg/dL Estim Creat Clear Calc 56.5 Estimated GFR > 60 POC Glucose 102 (60-115) mg/dL Random Glucose 109 (60-115) mg/dL Calcium 8.5 (8.4-10.2) mg/dL Troponin I High Sens < 2.7 (<3.5-35.0) ng/L Triglycerides 169 H (<150) mg/dL Cholesterol 142 (<200) mg/dL LDL Cholesterol, Calc 68 (<100) mg/dL HDL Cholesterol 41 (>40) mg/dL Independent Interpretation I performed an independent interpretation of an: CT Scan Radiology Impression Discussion of test interpretation with radiology: I have reviewed the radiologist's reading. Radiologist Impression: Aortic arch and cervical great vessels are patent with no aneurysm, dissection, hemodynamically significant stenoses, or occlusion. Intracranial arteries are patent. No aneurysm, dissection, hemodynamically significant stenoses, or occlusion. No abnormal intracranial enhancement. The visualized thyroid gland is unremarkable. No cervical mass or fluid collection. Lung apices clear. No acute fracture. IMPRESSION: Patent head and neck CTA. Critical Care Time Critical Care Time Total Critical Care Time: 45 Attestation: I have personally provided critical care time. Time includes review of lab data, radiology results, discussion with consultants, and monitoring for potential decompensation. Intervention performed as documented. Discharge Plan Discharge Clinical Impression: BPPV (benign paroxysmal positional vertigo) Patient Disposition: Home, Self-Care Instructions: Vertigo (ED) Additional Instructions: Please follow-up with your primary care physician tomorrow. If you have any worsening or new symptoms, please return to the emergency room or call 911 Prescriptions: New meclizine 25 mg tablet 25 mg PO QID PRN (Reason: dizziness) Qty: 20 0RF No Action sennosides [senna] 8.6 mg tablet 17.2 mg PO BEDTIME PRN (Reason: for constipation) Qty: 60 6RF docusate sodium [Stool Softener] 100 mg capsule 100 mg PO QAM Qty: 30 6RF omeprazole 20 mg capsule,delayed release(DR/EC) 20 mg PO QAM Qty: 30 6RF acetaminophen [Tylenol Extra Strength] 500 mg tablet 1,000 mg PO Q6H PRN (Reason: fever or pain) Qty: 20 0RF ibuprofen 400 mg tablet 400 mg PO TID PRN (Reason: fever or pain) Qty: 30 0RF cyclobenzaprine 5 mg tablet 5 mg PO TID PRN (Reason: muscle spasm) Qty: 10 0RF loratadine 10 mg tablet 10 mg PO DAILY diphenhydramine HCl 25 mg tablet 25 mg PO BEDTIME fluoxetine 20 mg capsule 20 mg PO QAM zolpidem 10 mg tablet 10 mg PO BEDTIME PRN gabapentin 100 mg capsule 100 mg PO TID lorazepam 0.5 mg tablet 0.5 mg PO DAILY triamcinolone acetonide 0.1 % ointment 3 topical Q OTHER DAY PRN meclizine 25 mg tablet 25 mg PO TID PRN guaifenesin 100 mg/5 mL liquid 200 mg PO Q4H PRN naproxen 500 mg tablet 500 mg PO BID atorvastatin 20 mg tablet 20 mg PO DAILY Descovy 200-25 mg tablet 1 tab PO DAILY Cerovite Senior 0.4 mg-300 mcg- 250 mcg tablet 1 tab PO DAILY Print Language: Tajik
[2025-05-02 01:01] VITALS: BP 130/96; PULSE 88; O2SAT 94; BMI 28.0
[2025-05-02 01:01] LABS: Glucose, Whole Blood 102 mg/dL (60-115)
[2025-05-02] MEDS: iohexoL 350 MG/ML 100 ML INFUS..BTL 70 ML IV (01:14)
[2025-05-02 01:23] VITALS: BP 149/99; PULSE 74; RESP 13; TEMP 36.6; O2SAT 93
[2025-05-02 01:34] LABS: MANUAL DIFF FLAG NO
--- OUTSIDE RECORDS SUMMARY | 2025-05-02 01:34 | XMS_ITS | Encounter Summary ---
Author Organization [employer] Address [address] [facility] 7t [place] [address] Care Team Providers Care Data Control Assistant Name Role Phone Name, Homero GUILLAUME Primary Care Provider [phone] Reason for Visit * Reason Onset Date Comments rs missed appt 09/11/2024 Encounter Details Date Type Department Care Team ([facility] st Contact Info) Description 09/11/2024 Telephone [facility] [address] [place] [address] Reinier, Maraima [address] [place] [address] rs missed appt Social History Tobacco Use [...] Description 07/07/2025 3:30 PM EST Office Visit [facility] [address] [place] [phone] NameHomero MD [address] [place] [address] documented as of this encounter Goals Goal [...] documented as of this encounter Care Teams Data Control Assistant Relationship Specialty Start Date End Date Homero Sosa MD [address] [place] [address] PCP - General Family Medicine 03/25/17 documented as of this encounter
--- OUTSIDE RECORDS SUMMARY | 2025-05-02 01:34 | XMS_ITS | Encounter Summary ---
Author Organization [employer] Address [address] [facility] 7t [place] [address] Care Team Providers Care Career Services Coordinator Name Role Phone Name, Homero GUILLAUME Primary Care Provider [phone] Reason for Visit * Reason Onset Date Comments Durable Medical Equipment 11/05/2022 Encounter Details Date Type Department Care Team ([facility] st Contact Info) Description 11/05/2022 Telephone [facility] MEDICINE [address] [place] [address] Name, MD Homero [address] [place] [address] Durable Medical Equipment Social History Tobacco Use [...] AM EDT Tc from Demetrice Blanca with [facility] Cardboard [employer]utter requesting a new script for CPAP supplies. Demetrice states that pt informed that facility informed that medical supplies for machine are not yet receive until 11/19/2022 of [facility]. Please contact Demetrice at [phone] to Confirm documented in this encounter Plan of Treatment Upcoming Encounters Date Type Department Care Team (Late st Contact Info) Description 07/07/2025 3:30 PM EST Office Visit [facility] [address] [place] [address] Name, MD Homero [address] [place] [address] documented as of this encounter Visit Diagnoses Not on filedocumented in this encounter Care Teams Career Services Coordinator Relationship Specialty Start Date End Date Name, MD Homero [address] [place] [address] PCP - General Family Medicine 03/25/17 documented as of this encounter
--- OUTSIDE RECORDS SUMMARY | 2025-05-02 01:34 | XMS_ITS | Clinical Summary ---
Author Organization [facility] Address [address] [place] [phone] Phone Care Team Providers Care Cake Batter Mixer Name Role Phone Name, Homero GUILLAUME Primary Care Provider [phone] Allergies No known active allergies Medications No known medications Active Problems No known active problems Medical History Medical History Date Comments Hypertension GERD (gastroesophageal reflux disease) Social History Tobacco Use Types Packs/Day Years Used Date Smoking Tobacco: Unknown Tobacco Cessation:Counseling Given: Not Answered Sex and Gender Information Value Date Recorded Sex Assigned at Not on file Legal Sex Male 1:40 PM EDT Gender Identity Not on file Sexual Orientation Not on file Obstetrics History Last Filed Vital Signs Vital Sign Reading Time Taken Comments Blood Pressure 128/91 12/22/2024 6:40 PM EDT Pulse 63 12/22/2024 6:40 PM EDT Temperature 36.8 C (98.2 F) 12/22/2024 6:40 PM EDT Respiratory Rate 18 12/22/2024 6:40 PM EDT Oxygen Saturation 97% 12/22/2024 6:40 PM EDT Inhaled Oxygen Concentration - - Weight 64.9 kg (143 lb) 12/22/2024 1:50 PM EDT Height 157.5 cm (5' 2 ) 12/22/2024 1:50 PM EDT Body Mass Index 26.16 12/22/2024 1:50 PM EDT Plan of Treatment Health Maintenance Due Date Last Done Comments Depression Screening 08/05/2024 Colorectal Cancer Screening: Colonoscopy 12/23/2024 Hepatitis C Screening 12/23/2024 Medicare Annual Wellness Visit 12/23/2024 Social Influencers of Health Screening 12/23/2024 Influenza Vaccine (#1) 2025 , 06/17/2023, 04/24/2022, Additional history exists Cholesterol Screening (Lipid Panel) 11/13/2029 11/13/2024 DTaP,Tdap,and Td Vaccines (4 - Td or Tdap) 12/30/2029 12/31/2019, 07/30/2013, 10/14/2008 RSV Immunization Adult Patients (1 - 1-dose 75+ series) 2041 Hepatitis B Vaccines Completed 01/20/2001, 08/20/2000, 07/19/2000 MMR Vaccines Aged Out 01/02/2012, 05/16/2000 No lo nger eligible based on patient's age to complete this topic Zoster Vaccines Completed 08/14/2021, 06/12/2021 HIV Screening Completed 05/18/2022 COVID-19 Vaccine Completed 08/21/2024, , 08/25/2021, Additional history exists Pneumococcal Vaccine: 50+ Years Completed 11/12/2024 HIB Vaccines Aged Out No longer eligi ble based on patient's age to complete this topic HPV Vaccines Aged Out No longer eligi ble based on patient's age to complete this topic Hepatitis A Vaccines Aged Out No long er eligible based on patient's age to complete this topic IPV Vaccines Aged Out No longer eligi ble based on patient's age to complete this topic Meningococcal ACWY Vaccine Aged Out N o longer eligible based on patient's age to complete this topic Meningococcal B Vaccine Aged Out No l onger eligible based on patient's age to complete this topic RSV Immunization Patients Under 20 months Aged Out No longer eligible based on patient's age to complete this topic Varicella Vaccines Aged Out No longer eligible based on patient's age to complete this topic Insurance [employer] MEDICARE Member Subscriber Plan / Payer (Ef fective 2014-Present) Name:GARY EPPERSON Relation to Subscriber:Self Name:Gary Epperson Payer ID:[id number] Group ID:[id number] Type:Not on file Address: [facility] [address] [address] Care Teams Cake Batter Mixer Relationship Specialty Start Date End Date Name, MD Homero [address] [place] [address] PCP - General Internal Medicine 12/22/24
--- OUTSIDE RECORDS SUMMARY | 2025-05-02 01:34 | XMS_ITS | Encounter Summary ---
Author Organization [employer] Address [address] [facility] 7t [place] [address] Care Team Providers Care Button Maker Name Role Phone Name, Homero GUILLAUME Primary Care Provider [phone] Reason for Visit * Reason Onset Date Comments ER Follow-up 09/17/2024 Nurse Triage 09/17/2024 Encounter Details Date Type Department Care Team ([facility] Contact Info) Description 09/17/2024 Telephone [facility] MED[facility]INE [address] [place] [phone] Name, MD Homero [address] [place] [address] ER Follow-up; Nurse Triage Social History Tobacco [...] ED visit on : Date: 09/14 Hospital: [facility] Seen for: Pharyngitis Symptomatic Yes *if yes message should go to Triage Patient advised will forward to team nurse for follow up [phone] iranian documented in this encounter Plan of Treatment Upcoming Encounters Date Type Department Care Team (Late st Contact Info) Description 07/07/2025 3:30 PM EST Office Visit [facility] [address] [place] [address] Name, MD Homero [address] [place] [address] documented as of this encounter Goals Goal [...] documented as of this encounter Care Teams Button Maker Relationship Specialty Start Date End Date Name, MD Homero [address] [place] [address] PCP - General Family Medicine 03/25/17 documented as of this encounter
--- OUTSIDE RECORDS SUMMARY | 2025-05-02 01:34 | XMS_ITS | Encounter Summary ---
Author Organization [employer] Address [address] [facility] 7t [place] [address] Care Team Providers Care Trim Machine Adjuster Name Role Phone Name, Homero GUILLAUME Primary Care Provider [phone] Reason for Visit * Reason Onset Date Comments Referral 08/22/2023 Encounter Details Date Type Department Care Team ([facility] Contact Info) Description 08/22/2023 Telephone [facility] MEDICINE [address] [place], [place] [phone] Name, MD Homero [address] [place] [address] Referral Social History Tobacco Use Types Packs/Day [...] AM EST FYI T/C to pt. Through Bass Manager id - [id number] to inquiry why pt. Is looking for eye care referral, No answer. LVM to call back on [phone]. * Telephone Encounter - Regina Castaneda - 08/22/2023 2:33 PM EST Referral Specialty:Eye center Location: [facility] Date&Time: N/a Interchange Agent:no documented in this encounter Plan of Treatment Upcoming Encounters Date Type Department Care Team ([facility] Contact Info) Description 07/07/2025 3:30 PM EST Office Visit [facility] MED[facility]INE [address] [place] [address] Name, MD Homero [address] [place] [address] documented as of this encounter Goals Goal [...] documented as of this encounter Care Teams Trim Machine Adjuster Relationship Specialty Start Date End Date Name, MD Homero [address] [place] [address] PCP - General Family Medicine 03/25/17 documented as of this encounter
--- OUTSIDE RECORDS SUMMARY | 2025-05-02 01:34 | XMS_ITS | Encounter Summary ---
Author Organization [employer] Address [address] [facility] 7 [place] [address] Care Team Providers Care Warp Trucker Name Role Phone Name, Homero GUILLAUME Primary Care Provider [phone] Encounter Details Date Type Department Care Team (Latest Contact Info) Description 05/04/2021 Abstract [facility] CONVERSION[facility] Dental, Provider, DDS Social History [...] Description 07/07/2025 3:30 PM EST Office Visit [facility] MED[facility]INE [address] [place] [address] NameHomero MD [address] [place] [address] documented as of this encounter Visit Diagnoses Not on filedocumented in this encounter Care Teams Warp Trucker Relationship Specialty Start Date End Date Homero Sosa MD [address] [place] [address] PCP - General Family Medicine 03/25/17 documented as of this encounter
--- OUTSIDE RECORDS SUMMARY | 2025-05-02 01:34 | XMS_ITS | Encounter Summary ---
Author Organization [employer] Address [address] [place] [address] 7 [place] [address] Care Team Providers Care Pipeline Technician Name Role Phone Name, Homero GUILLAUME Primary Care Provider [phone] Reason for Visit * Reason Comments Med Refill Encounter Details Date Type Department Care Team (Late Contact Info) Description 07/09/2022 Refill [facility] MEDICINE [address] [place] [phone] NameHomero MD [address] [place] [phone] Social History Tobacco Use Types Packs/Day Years [...] Description 07/07/2025 3:30 PM EST Office Visit [facility] MED[facility]INE [address] [place] [address] NameHomero MD [address] [place] [address] documented as of this encounter Visit Diagnoses Not on filedocumented in this encounter Care Teams Pipeline Technician Relationship Specialty Start Date End Date NameHomero MD [address] [place] [address] PCP - General Family Medicine 03/25/17 documented as of this encounter
--- OUTSIDE RECORDS SUMMARY | 2025-05-02 01:34 | XMS_ITS | Encounter Summary ---
Author Organization [employer] Address [address] [place] [address] [address] [place] [address] Care Team Providers Care Regional Loss Prevention Manager Name Role Phone Name, Homero GUILLAUME Primary Care Provider [phone] Reason for Visit * Reason Comments Med Refill Encounter Details Date Type Department Care Team ([facility] Contact Info) Description 03/31/2023 Refill [facility] MEDICINE [address] [place] [phone] NameHomero MD [address] [place] [phone] Social History Tobacco Use Types Packs/Day Years [...] Upcoming Encounters Date Type Department Care Team ([facility] Contact Info) Description 07/07/2025 3:30 PM EST Office Visit [facility] MED[facility]INE [address] [place] [phone] NameHomero MD [address] [place] [phone] documented as of this encounter Visit Diagnoses Not on filedocumented in this encounter Additional Health Concerns Assessment Noted Time PHQ-9 Depression Total Score: 0 02/12/20 23 1:21 PM EDT documented as of this encounter Care Teams Regional Loss Prevention Manager Relationship Specialty Start Date End Date Name, MD Homero [address] [place] [address] PCP - General Family Medicine 03/25/17 documented as of this encounter
--- OUTSIDE RECORDS SUMMARY | 2025-05-02 01:34 | XMS_ITS | Encounter Summary ---
Author Organization [employer] Address [address] [place] [address] 7 [place] [address] Care Team Providers Care Assistant Clinical Director Name Role Phone NameHomero MD Primary Care Provider [phone] Encounter Details Date Type Department Care Team (Late st Contact Info) Description 10/05/2022 Telephone [facility] MED[facility] [address] [place] [phone] Nati Rivera LPN Social History Tobacco Use [...] Description 07/07/2025 3:30 PM EST Office Visit [facility] [address] [place] [address] Homero Sosa MD [address] [place] [address] documented as of this encounter Visit Diagnoses Not on filedocumented in this encounter Care Teams Assistant Clinical Director Relationship Specialty Start Date End Date Homero Sosa MD [address] [place] [address] PCP - General Family Medicine 03/25/17 documented as of this encounter
--- OUTSIDE RECORDS SUMMARY | 2025-05-02 01:34 | XMS_ITS | Encounter Summary ---
Author Organization [employer] Address [address] [facility] 7t [place] [address] Care Team Providers Care Information Assurance Analyst Name Role Phone Name, Homero GUILLAUME Primary Care Provider [phone] Encounter Details Date Type Department Care Team ([facility] Contact Info) Description 03/21/2023 Orders Only [facility] [address] [place], [place] [phone] Virginia White LPN Social History Tobacco Use [...] Upcoming Encounters Date Type Department Care Team ([facility] Contact Info) Description 07/07/2025 3:30 PM EST Office Visit [facility] MEDICINE [address] [place], [place] [phone] NameHomero MD [address] [place] [address] documented as of this encounter Procedures Procedure [...] (SLATER) (06/01/2023 6:34 PM EDT) IDNOW SERIAL# [id number] [facility] COVID-19 TEST Negative Negative [facility] COVID-19 NOTE See Note [facility] Comment: Results are for the identification of SARS-CoV2 RNA. TheSARS-CoV2 RNA is generally detectable in respiratory samplesduring the acute phase of infection. Positive results areindicative of the presence of SARS-CoV-2 RNA; clinicalcorrelation with patient history and other diagnosticinformation is necessary to determine patient infectionstatus. Positive results do not rule out bacterial infectionor co- infection with other viruses.Testing facilities within the [facility] and itsterritories are required to report [...] 6:34 PM EDT 06/01/2023 6:42 PM EDT [facility] Provider LAB MOLECULAR DIAGNOSTICS ORDERABLES Final Result Performing Organization Address [facility] de Phone Number [facility] [address] [place] [address] [phone] * Influenza A B2 ID NOW (Slater) (06/01/2023 6:34 PM EDT) IDNOW SERIAL# [id number] [facility] Influenza A Negative Negative [facility] Influenza B2 Negative Negative [facility] Influenza A B2 Note See Note [facility] Comment:The Slater ID NOW In [...] 6:34 PM EDT 06/01/2023 6:42 PM EDT [facility] Provider LAB MICROBIOLOGY - GENERAL ORDERABLES Final Result Performing Organization Address [facility] Co de Phone Number [facility] [address] [place] [address] [phone] * Lipase (06/01/2023 6:34 PM EDT) Lipase 21 8 - 78 U/L [facility] 06/01/2023 6:34 PM EDT 06/01/2023 6:42 PM EDT Generic External Data Provider LAB BLOOD ORDERAB LES Final Result [facility] [address] [place] [address] [phone] * (ABNORMAL) Comprehensive Metabolic Panel (06/01/2023 6:34 PM EDT) Sodium 139 135 - 145 mmol/L [facility] Potassium 4.2 3.3 - 5.1 mmol/L [facility] Chloride 105 96 - 108 mmol/L [facility] Carbon Dioxide 25 22 - 29 mmol/L [facility] Anion Gap 13 12 - 20 [facility] Urea Nitrogen (BUN) 10 9 - 16 mg/dL [facility] Creatinine, Serum 1.16 0.5 - 1.4 mg/dL [facility] Creatinine Clr Calc Pharmacy 54.9 [facility] Comment:eGFR (calculated fro m the MDRD study equation) and eCrCl(calculated from the Cockcroft-Gault equation) are based ondifferent parameters and may not yield comparable results.If eCrCl result is absurd, please check patient'sheight/weight. Estimated Glomerular Filt Rate >60 [facility] Comment:NOTE: For -Am erican individuals, multiply the result by 1.210.Chronic Kidney Disease: Estimated GFR < 60 mL/min/1.72l6Emvvgm Kidney Disease: Estimated GFR < 15 mL/min/1.73m2 Glucose 120(H) 60 - 115 mg/dL [facility] Calcium 9.3 8.4 - 10.2 mg/dL [facility] Bilirubin, Total 0.5 0.0 - 1.0 mg/dL [facility] Aspartate Amino Transferase 23 5 - 37 U/L [facility] Alanine Aminotransferase 18 0 - 40 U/L [facility] Total Protein 7.3 6.5 - 8.0 g/dL [facility] Albumin Level 4.2 3.5 - 5.0 g/dL [facility] Alkaline Phosphatase 78 39 - 117 U/L [facility] 06/01/2023 6:34 PM EDT 06/01/2023 6:42 PM EDT [facility] External Provider LAB BLO OD ORDERABLES Final Result Performing Organization Address [facility] Co de Phone Number [facility] [address] [place] [phone] * Prothrombin Time-INR (06/01/2023 6:34 PM EDT) [facility] Prothrombin Time 11.4 11.1 - 13.3 SEC [facility] INTERNATIONAL NORM RATIO 0.9 0.9 - 1.1 [facility] Comment:INTERNATIONAL NORMAL IZED RATIO (INR) [...] 6:34 PM EDT 06/01/2023 6:42 PM EDT [facility] External Provider LAB BLO OD ORDERABLES Final Result Performing Organization Address [facility] de Phone Number [facility] [address] [place] [phone] * (ABNORMAL) CBC auto differential (06/01/2023 6:34 PM EDT) [facility] White Blood Count 8.1 4.8 - 10.8 X10*3/uL [facility] Red Blood Count 4.64 4.60 - 5.80 X10*6/uL [facility] Hemoglobin 13.1(L) 14.0 - 18.0 g/dl [facility] Hematocrit 39.3(L) 42.0 - 52.0 % [facility] Mean Corpuscular Volume 84.7 80.0 - 98.0 fL [facility] Mean Corpuscular Hemoglobin 28.2 27.0 - 33.0 pg [facility] Mean Corpuscular HGB Conc 33.3 31.0 - 36.0 g/dl [facility] Red Cell Distribution Width 13.1 11.0 - 16.0 % [facility] Platelet Count 232 160 - 400 X10*3/uL [facility] Mean Platelet Volume 8.8(L) 9.4 - 12.4 fL [facility] Neutrophils Percent Auto 60.0 45 - 73 % [facility] Imm Gran Pct Auto 0.2 0.0 - 0.4 % [facility] Lymphocytes Percent Auto 28.3 20 - 40 % [facility] Monocytes Percent Auto 8.5 2 - 11 % [facility] Eosinophils Percent Auto 2.3 0 - 4 % [facility] Basophils Percent Auto 0.7 0 - 2 % [facility] NRBC Pct Auto 0.0 0.0 - 0.2 /100WBC [facility] Neutrophils Absolute Auto 4.8 2.0 - 8.3 x10*3/uL [facility] Imm Gran Abs Auto 0.02 0.00 - 0.03 X10*3/uL [facility] Lymphocytes Absolute Auto 2.3 1.2 - 4.9 X10*3/uL [facility] Monocytes Absolute Auto 0.7 0.1 - 1.2 X10*3/uL [facility] Eosinophils Absolute Auto 0.2 0.0 - 0.4 X10*3/uL [facility] Basophils Absolute Auto 0.1 0.0 - 0.2 X10*3/uL [facility] NRBC Abs Auto 0.000 0.0 - 0.012 X10*3/uL [facility] 06/01/2023 6:34 PM EDT 06/01/2023 6:42 PM EDT us [facility] External Provider LAB BLO OD ORDERABLES Final Result [facility] [address] [place] [phone] [phone] documented in this encounter Visit Diagnoses Not on filedocumented in this encounter Additional Health Concerns Assessment Noted Time PHQ-9 Depression Total Score: 0 02/12/20 23 1:21 PM EDT documented as of this encounter Care Teams Information Assurance Analyst Relationship Specialty Start Date End Date Name, MD Homero [address] [place] [address] PCP - General Family Medicine 03/25/17 documented as of this encounter
--- OUTSIDE RECORDS SUMMARY | 2025-05-02 01:34 | XMS_ITS | Clinical Summary ---
Author Organization [employer] Address [address] [place] [address] 7t [place] [address] Care Team Providers Care Drainage Inspector Name Role Phone Name, Homero GUILLAUME Primary Care Provider [phone] Allergies No known active allergies Medications FLUoxetine [...] AT BEDTIME 30 tablet 5 025 Active clotrimazole-be tamethasone (Lotrisone) cream APPLY [...] BY MOUTH EVERY MORNING 30 tablet 11 025 Active SUMAtriptan (Imitrex) 25 MG tablet Take 1 tablet (25 mg) by mouth 1 (one) time if needed for migraine for up to 1 dose. May repeat dose once in 2 hours if no relief. Do not exceed 2 doses in 24 hours. 9 tablet 3 025 Active fluticasone (Flonase) 50 MCG/ACT nasal sprayIndication s:Seasonal allergic rhinitis, unspecified trigger USE 1 SPRAY IN EACH NOSTRIL ONCE DAILY 16 g 2 025 Active fluticasone (Flonase) 50 MCG/ACT nasal sprayIndication s:Seasonal allergic rhinitis, unspecified trigger INSTILL 1 SPRAY IN EACH NOSTRIL ONCE DAILY 16 g 2 025 2024 Discontinued SUMAtriptan (Imitrex) 25 MG tablet TAKE 1 TABLET BY MOUTH AT ONSET OF MIGRAINE. MAY REPEAT ONCE AFTER 2 HOURS IF NEEDED 9 tablet 3 025 2024 Discontinued(R eorder (will not trigger notification to Pharmacy)) cyclobenzaprine (Flexeril) 5 MG tabletIndicatio ns:Whiplash injury to neck, initial encounter Take 1 tablet (5 mg) by mouth if needed in the morning, at noon, and at bedtime for muscle spasms for up to 21 days. 21 tablet 025 2024 Active Problems Problem Noted [...] Acetaminophen PRN cyclobenzaprine 5mg Q 8hrs I counseling program leader patient about medication side effects which include [...] 07/22/2018 10/09/2022 Acute low back pain 02/07/2018 03/07/20 23 Tobacco dependence syndrome 06/23/2015 10/09/2022 Encounters Date Type Department Care Team Description 04/22/2025 Telephone [facility] [place] [address] Homero Sosa MD Nurse Triage 04/17/2025 Refill [facility] [place] [address] Homero Sosa MD Seasonal allergic rhinitis, unspecified trigger 04/13/2025 2:30 PM EDT Office Visit [facility] [place] [address] Homero Sosa MD Migraine without status migrainosus, not intractable, unspecified migraine type (Primary Dx); Screening examination for STI 04/13/2025 Travel 04/09/2025 Telephone [facility] [place] [place] [address] Homero Sosa MD CHARTPREP 03/25/[address] [address] Homero Sosa MD 03/16/2025 1:00 PM EDT Office Visit [facility] [place] [place] [address] Phyllis Andrew NP Whiplash injury to neck, initial encounter (Primary Dx) 03/16/2025 Travel 03/16/[address] [address] Hoemro Sosa MD ER Follow-up 03/15/2025 Orders Only [facility] External Provider, [facility] 02/06/2025 Refill [facility] [place] [place] [address] Homero Sosa MD 02/04/[address] [phone] Homero Sosa MD Durable Medical Equipment from [...] the past 12 months, has t he [employer], oil or water [employer] threatened to shut off services in your [...] Description 07/07/2025 3:30 PM EST Office Visit [facility] MEDICINE [address] [place] [phone] Name, MD Homero [address] [place] [address] Health Maintenance Due Date Last Done Comments [...] Cancer Screening 08/25/2028 Lipid Panel 11/13/2029 11/13/2024, 03/0 03/2023, 05/18/2022, Additional history exists DTaP/Tdap/Td Vaccines (3 - Td or Tdap) 12/30/2029 12/31/2019, 07/30/2013, 10/14/2008 RSV Patients and Patients Aged 60 years or older (1 - 1-dose 75+ series) 2041 Hepatitis B Vaccines Completed 01/20/2001, 08/20/2000, 07/19/2000 Zoster Vaccines Completed 08/14/2021, 06/12/2021 COVID-19 Vaccine Completed 08/21/2024, , 08/25/2021, Additional history exists Pneumococcal Vaccine: 50+ Years Completed 11/12/2024 HIV Screening Completed 04/14/2025, 05/05, 05/03/2021, Additional history exists Hepatitis C Screening Completed 04/14/2025 , 05/18/2022, 05/03/2021, Additional history exists HIB Vaccines Aged Out No longer eligi [...] Procedure Name Priority Date/Time Associated Diagnosis Comments HEPATITIS B SURFACE ANTIBODY, QUALITATIVE Routine 04/14/2025 10:05 AM EDT Screening examination for STI HEPATITIS B SURFACE ANTIGEN, EIA Routine 04/14/2025 10:05 AM EDT Screening examination for STI HEPATITIS C AB W/REFL TO HCV RNA, QN, PCR Routine 04/14/2025 10:05 AM EDT Screening examination for STI RPR (MONITOR) W/REFL TITER Routine 04/14/2025 10:05 AM EDT Screening examination for STI HIV 1/2 ANTIGEN/ANTIBODY, FOURTH GENERATION W/RFL Routine 04/14/2025 10:05 AM EDT Screening examination for STI CT CERVICAL SPINE WO CONTRAST Routine 03/15/2025 11:12 PM EDT LIPID PANEL, STANDARD Routine 11/13/2024 9:33 AM EDT High cholesterol PROPHYLAXIS - ADULT Routine 05/21/2024 1 0:00 AM EDT Advanced periodontitis Gingival bleeding Missing teeth, acquired Localized gingival recession INTRAORAL - COMPLETE SERIES OF RADIOGRAPHIC IMAGES Routine 04/03/2024 10:30 AM EDT PERIODIC ORAL EVALUATION - ESTABLISHED PATIENT Routine 04/03/2024 10:30 AM EDT HM COLONOSCOPY Routine 08/25/2018 12:32 PM EST from Last 3 Months or Most Recently Relevant to Health Maintenance Results * Hepatitis C Antibody with Reflex to HCV, RNA, Quantitative, Real-Time PCR (04/14/2025 10:05 AM EDT) Hepatitis C Antibody Nonreactive Nonreactive [facility] Comment:Antibodies to HCV no t detected; does not exclude early acuteHCV infection. Blood Venous blood specimen / Unknown 04/14/2025 10:05 AM EDT 04/14/2025 12:26 PM EDT us Homero Sosa MD LAB BLOOD ORDERABLES Final Resul t Performing Organization Address [facility]/ZIP Co de Phone Number [facility] [address] [place] [phone] * Hepatitis B surface antigen, EIA (04/14/2025 10:05 AM EDT) Hepatitis B Surface Ag Negative Negative [facility] Blood Venous blood specimen / Unknown 04/14/2025 10:05 AM EDT 04/14/2025 12:26 PM EDT us Homero Sosa MD LAB BLOOD ORDERABLES Final Resul t Performing Organization Address [facility] Co de Phone Number [facility] [address] [place] [phone] * RPR (Monitor) with Reflex to??Titer (04/14/2025 10:05 AM EDT) RPR (Monitor) w/Refl Titer NON-REACTI VE NON-REACT JONNIE [facility] Comment:THIS TEST WAS PERFOR MED AT:[employer] [place] [phone] RIOS MD Rapid Plasma Reagin Ab Titer TNP [facility] Blood Venous blood specimen / Unknown 04/14/2025 10:05 AM EDT 04/14/2025 12:01 PM EDT us Homero Sosa MD LAB BLOOD ORDERABLES Final Resul t Performing Organization Address City/[facility]/ZIP Co de Phone Number [facility] [address] [place] [phone] * HIV-1/2 Antigen and Antibodies, Fourth Generation, with Reflexes (04/14/2025 10:05 AM EDT) HIV AB/AG Nonreactive Nonreactive [facility] Comment:HIV-1 p24 Ag and/or HIV-1/HIV-2 Ab not detected.A test result that is nonreactive does not exclude thepossibility of exposure to or infection with HIV-1 and/orHIV-2. Nonreactive results in this assay for individualswith prior exposure to HIV-1 and/or HIV-2 may be due toantigen and antibody levels that are below the limit ofdetection of this assay.The [employer] HIV Ag/Ab Combo assay result andsupplemental assay results should be interpreted inconjunction with the patient's clinical presentation,history and other laboratory results. If the results areinconsistent with clinical evidence, additional testing issuggested to confirm the result. Blood Venous blood specimen / Unknown 04/14/2025 10:05 AM EDT 04/14/2025 12:26 PM EDT us Homero Sosa MD LAB BLOOD ORDERABLES Final Resul t Performing Organization Address City/[facility]/ZIP Co de Phone Number [facility] [address] [place] [phone] * Hepatitis B Surface Antibody, Qualitative (04/14/2025 10:05 AM EDT) ~Hepatitis B Surface Antibody REACTIVE Nonreactive [facility] Comment:REACTIVE: > 11.99 mI U/mL Blood Venous blood specimen / Unknown 04/14/2025 10:05 AM EDT 04/14/2025 12:26 PM EDT us Homero Sosa MD LAB BLOOD ORDERABLES Final Resul t [facility] [address] [place] [phone] * CT Cervical Spine w/o Contrast (03/15/2025 11:12 PM EDT) Anatomical Region Laterality Modality Spine, C-spine Computed Tomogra phy 03/15/2025 11:1 2 PM EDT Narrative 03/15/2025 11:13 PM EDT [place] [address] [address] Scan Report Signed Patient: Gary Davis I MR#: [id number] : 1965 Acct:[id number] Age/Sex: 59 / M ADM Date: 03/15/25 Loc: HO.ED Attending Dr: Ordering Physician: Janusz Morin MD Date of Service: 03/15/25 Procedure(s): CT cervical spine wo IV con Accession Number(s): [id number] cc: Janusz Morin MD; Name,Homero GUILLAUME Report Number: [id number]: Total DLP = 348.00 mGy-cm CLINICAL HISTORY: [...] in OV> 03/15/252311 DD/ 11 TD/TT: 03/15/252311 Clinical Practitioner: Procedure Note Donotuseinterpreter, Image - 03/15/[address] [address] [address] Scan Report Signed Patient: Gary Davis IMR#: [id number] : 1965Acct:[id number] Age/Sex: 59 / MADM Date: 03/15/25 Loc: HO.ED Attending Dr: Ordering Physician: Janusz Morin MD Date of Service: 03/15/25 Procedure(s): CT cervical spine wo IV con Accession Number(s): [id number] cc: Janusz Morin MD; Name,Homero Report Number: [id number]: Total DLP = 348.00 mGy-cm CLINICAL HISTORY: [...] in OV> 03/15/252311 DD/ 11 TD/TT: 03/15/252311 Clinical Practitioner: [facility] External Provider IMG CT PROCEDURES Final Result * Lipid Panel, Standard (11/13/2024 9:33 AM EDT) Triglycerides 108 <150 mg/dL [facility] Comment:Desirable Triglyceri de: less than 150 mg/dLBorderline High Triglyceride 150-199 mg/dLHigh Triglyceride: 200-499 mg/dLVery High Triglyceride: greater than or equal to 5OO mg/dL Cholesterol 159 <200 mg/dL [facility] Comment:Desirable Cholestero l: less than 200 mg/dLBorderline High Cholesterol: 200-239 mg/dLHigh Cholesterol: greater than 239 mg/dL LDL Cholesterol Calculated 83 <100 mg/dL [facility] Comment:Desirable LDL: less than 100 mg/dLNear Optimal/Above Optimal LDL: 110- 129 mg/dLBorderline High LDL: 130-159 mg/dLHigh LDL: 160-189 mg/dLVery High LDL: greater than or equal to 190 mg/dL HDL Cholesterol 55 >40 mg/dL [facility] Comment:Desirable HDL: great er than 40 mg/dL Note: This HDL assay may give artificially low results in patients with liver disease. Blood Venous blood specimen / Unknown 11/13/2024 9:33 AM EDT 11/13/2024 11:26 AM EDT us Homero Name LAB BLOOD ORDERABLES Final Resul t [facility] [address] [place] [address] [phone] * Colonoscopy (08/25/2018 12:32 PM EST) Colonoscopy Normal Normal Narrative Ilana Torres - 08/25/2018 12:32 PM EST Recommended 10 year follow up([facility] [place] [place]) Historical Provider HEALTH MAINTENANCE Final Result from Last 3 Months or Most Recently Relevant to Health Maintenance Insurance [facility] CARE < [address] [place] [id number] DENTAL [facility] GENERIC TPL Care Teams Drainage Inspector Relationship Specialty Start Date End Date Name, MD Homero [address] [place] [address] PCP - General Family Medicine 03/25/17
--- OUTSIDE RECORDS SUMMARY | 2025-05-02 01:34 | XMS_ITS | Encounter Summary ---
Author Organization [email or web address] Address [address] [facility] 7t [place] [address] Care Team Providers Care Professional Services Manager Name Role Phone Name, Homero GUILLAUME Primary Care Provider [phone] Encounter Details Date Type Department Care Team ([facility] Contact Info) Description 01/14/2023 Abstract [facility] MEDICINE [address] [place] [address] Name, MD Homero [address] [place] [phone] Social History Tobacco Use Types Packs/Day Years [...] Upcoming Encounters Date Type Department Care Team ([facility] Contact Info) Description 07/07/2025 3:30 PM EST Office Visit [address] [phone] Name, MD Homero [address] [place] [address] [phone] documented as of this encounter Procedures Procedure Name Priority Date/Time Associated Diagnosis Comments COLONOSCOPY Routine 08/25/2018 12:32 PM EST documented in this encounter Results * Colonoscopy (08/25/2018 12:32 PM EST) Colonoscopy Normal Normal Narrative Ilana Torres - 08/25/2018 12:32 PM EST Recommended 10 year follow up([facility] us Historical Provider HEALTH MAINTENANCE Final Result documented in this encounter Visit Diagnoses Not on filedocumented in this encounter Care Teams Professional Services Manager Relationship Specialty Start Date End Date Name, MD Homero [address] [facility] [place] [address] PCP - General Family Medicine 03/25/17 documented as of this encounter
--- OUTSIDE RECORDS SUMMARY | 2025-05-02 01:34 | XMS_ITS | Encounter Summary ---
Author Organization [employer] Address [address] [facility] 7t [place] [address] Care Team Providers Care Dry Cleaning Counter Clerk Name Role Phone Name, Homero GUILLAUME Primary Care Provider [phone] Reason for Referral * PFT (Routine) - Pending Review Specialty Diagnoses / Procedures Referred By Contac t Referred To Contact Diagnoses SOB (shortness of breath) Procedures Pulmonary Function Test Raudel Howard MD [address] [place] [address] Phone: tel: fax: [address] Phone: tel: fax: Referral ID Status Reason Start Date Expiration Date V isits Requested Visits Authorized [id number] Pending Review 12/21/2024 12/21/2025 1 1 Encounter Details Date Type Department Care Team (Late st Contact Info) Description 12/21/2024 Orders Only [facility] [address] [place] [address] Raudel Howard MD [address] [place], [place] [phone] SOB (shortness of breath) (Primary Dx) Social [...] 3:30 PM EST Office Visit [facility] MEDICINE [address] [place] [address] Name, MD Homero [address] [place] [address] Scheduled Orders Name Type Priority Associated Diagnoses [...] documented as of this encounter Care Teams Dry Cleaning Counter Clerk Relationship Specialty Start Date End Date Name, MD Homero [address] [place] [address] PCP - General Family Medicine 03/25/17 documented as of this encounter
--- OUTSIDE RECORDS SUMMARY | 2025-05-02 01:34 | XMS_ITS | Encounter Summary ---
Author Organization [employer] Address [address] [facility] 7t [place] [address] Care Team Providers Care Electrical Electronics Technician Name Role Phone Name, Homero GUILLAUME Primary Care Provider [phone] Encounter Details Date Type Department Care Team (Late Contact Info) Description 10/15/2022 Abstract [facility] [address] [place] [phone] Name, MD Homero [address] [place] [phone] Social History Tobacco Use Types Packs/Day Years [...] Description 07/07/2025 3:30 PM EST Office Visit [facility] MED[facility] [address] [place] [address] Name, MD Homero [address] [place] [address] documented as of this encounter Visit Diagnoses Not on filedocumented in this encounter Care Teams Electrical Electronics Technician Relationship Specialty Start Date End Date Name, MD Homero [address] [facility] [place] [address] PCP - General Family Medicine 03/25/17 documented as of this encounter
[2025-05-02 01:35] LABS: Hematocrit 34.3 % (42.0-52.0); Hemoglobin 11.7 g/dl (14.0-18.0); Imm Gran Abs Auto 0.03 X10*3/uL (0.00-0.03); Imm Gran Pct Auto 0.4 % (0.0-0.4); Lymphocytes Absolute Auto 2.7 X10*3/uL (1.2-4.9); Mean Corpuscular HGB Conc 34.1 g/dl (31.0-36.0); Mean Corpuscular Hemoglobin 28.4 pg (27.0-33.0); Mean Corpuscular Volume 83.3 fL (80.0-98.0); NRBC Abs Auto 0.000 X10*3/uL (0.0-0.012); NRBC Pct Auto 0.0 /100WBC (0.0-0.2); Platelet Count 187 X10*3/uL (160-400); Red Blood Count 4.12 X10*6/uL (4.60-5.80); White Blood Count 8.4 X10*3/uL (4.8-10.8)
[2025-05-02 01:41] LABS: INTERNATIONAL NORM RATIO 1.0 (0.9-1.1); Prothrombin Time 11.2 SEC (10.9-12.4)
[2025-05-02 01:44] LABS: Partial Thromboplastin Time 29.0 SEC (26.7-34.1)
[2025-05-02 01:45] LABS: Stroke Lab Use COMPLETE
[2025-05-02 01:49] LABS: Anion Gap 12 (12-20); Blood Urea Nitrogen 10 mg/dL (9-16); Calcium 8.5 mg/dL (8.4-10.2); Carbon Dioxide 27 mmol/L (22-29); Chloride 105 mmol/L (96-108); Cholesterol 142 mg/dL (<200); Creatinine Clr Calc Pharmacy 56.5; Estimated Glomerular Filt Rate > 60; HDL Cholesterol 41 mg/dL (>40); Potassium 3.6 mmol/L (3.3-5.1); Sodium 140 mmol/L (135-145); Triglycerides 169 mg/dL (<150)
[2025-05-02 02:05] LABS: Troponin-I High Sensitivity < 2.7 ng/L (<3.5-35.0)
[2025-05-02 04:00] VITALS: BP 115/87; PULSE 88; RESP 12; TEMP 36.7; O2SAT 96
[2025-05-02 05:04] VITALS: BP 130/95; PULSE 76; RESP 12; TEMP 36.7; O2SAT 96
[2025-05-02 05:19] VITALS: BP 130/95; PULSE 76; RESP 12; TEMP 36.7; O2SAT 96
== END 2025-05-02 05:57 | disposition home or self-care (01) ==
PROVIDERS: Emergency Medicine Emergency Medical Services; Emergency Provider Emergency Medicine; PCP Internal Medicine Geriatric Medicine
DX: H81.13 Benign paroxysmal vertigo, bilateral (principal); R11.0 Nausea; I45.10 Unspecified right bundle-branch block; R94.31 Abnormal electrocardiogram [ECG] [EKG]; Z79.899 Other long term (current) drug therapy; R51.9 Headache, unspecified; M54.2 Cervicalgia; Z51.81 Encounter for therapeutic drug level monitoring
CPT/HCPCS: 36415; 70450; 70496; 70498; 71045; 80048; 80061; 82947; 84484; 85025; 85610; 85730; 93005; 96361; 96374; 99285; J2405; Q9967

== ENCOUNTER → 2025-05-02 00:58 | Outpatient (BNV) | payer OTHER, SELFPAY | PROVIDERS: Emergency Provider Emergency Medicine Emergency Medical Services; PCP Internal Medicine Geriatric Medicine; Visit Provider Student in an Organized Health Care Education/Training Program | DX: R42 Dizziness and giddiness (principal) | CPT/HCPCS: 70450; 70496; 70498; 71045 ==

== ENCOUNTER → 2025-05-02 00:58 | Outpatient (BNV) | payer OTHER, SELFPAY | PROVIDERS: Emergency Provider Emergency Medicine; PCP Internal Medicine Geriatric Medicine; Visit Provider Internal Medicine Cardiovascular Disease | DX: I45.10 Unspecified right bundle-branch block (principal) | CPT/HCPCS: 93010 ==